=== PATIENT | female | born 1955 | race Caucasian/White ===

== ENCOUNTER 2024-06-17 23:28 | Observation (INO) | payer MEDICARE, SELFPAY ==
--- NOTE | 2024-06-17 23:25 | XR_ITS ---
PROCEDURE INFORMATION: Exam: XR Chest Exam date and time: 06/17/2024 11:30 PM Age: 68 years old Clinical indication: Shortness of breath; Additional info: Soa/weak, recent HX intubation TECHNIQUE: Imaging protocol: Radiologic exam of the chest. Views: 1 view. COMPARISON: No relevant prior studies available. FINDINGS: Lungs: Unremarkable. No consolidation. Pleural spaces: Unremarkable. No pleural effusion. No pneumothorax. Heart/Mediastinum: Unremarkable. No cardiomegaly. Bones/joints: Unremarkable. IMPRESSION: No acute radiographic findings identified.
[2024-06-17 23:33] VITALS: BP 173/96; PULSE 105; RESP 20; TEMP 36.7; O2SAT 95; BMI 37.8
[2024-06-17 23:34] VITALS: BP 173/96; PULSE 65; RESP 23; O2SAT 86
--- NOTE | 2024-06-17 23:38 | PC.NURSE ---
Pt awake alert and oriented Skin pale warm and cool Speech clear and appropriate. Attempted to initiate IV x3 with no success Resport given to Traci NIX Pt in ST per continuous heart monitor
--- NOTE | 2024-06-17 23:47 | HMH.EDGENADL ---
Discharge Plan Disposition Chief Complaint: Weakness Clinical Impressions Clinical Impression: Heart failure, Pressure ulcers of skin of multiple topographic sites, Generalized muscle weakness Print Language Print Language: Afghan Discharge ED Provider: Cj Alva General Adult HPI General Chief complaint: Weakness Stated complaint: Sepsis Time Seen by Provider: 06/17/24 23:30 Mode of Arrival: EMS Source of Information: Patient Description of Symptoms (Recalled from ER Triage Doc. by RN): Pt states she was recently released from [facility] and now unable to do ADLs due to weakness at home History of Present Illness HPI narrative: 68-year-old female presents for generalized weakness. The patient was admitted to [facility] about a month ago for a total of 11 days. She had pneumonia and required intubation. At that time she also had a GI bleed, presumably from too much NSAID use. She also had MRSA and was very sick. She was discharged about 2 weeks ago and was prescribed Augmentin and doxycycline Bumex and lisinopril which she has been taking. She completed the antibiotics already. Prior to her admission to [facility], she could barely walk, could only walk a few steps with a walker. She has a history of multiple back surgeries that have resulted in her being weak and without balance. She also with a history of cholecystectomy, tubal ligation. She denies any known lung history, heart history, kidney history, diabetes etc. she is here tonight because she is extremely weak. She lives home alone and is not really able to get out of her wheelchair. She reports that she has a cough but does not feel like she is sick. Related Data Allergies Allergy/AdvReac Type Severity Reaction Status Date / Time No Known Allergies Allergy Verified 06/18/24 00:[address] [facility] Disclaimer: The information contained in this section may have been updated after the patient was seen, as this information can be updated by other users. Social History Smoking Status: Never smoker alcohol intake: never current occupational status: retired Travel in the last 8 weeks: None ROS Obtained: Yes All systems reviewed & no additional complaints except as documented Physical Exam General General appearance: alert, in no apparent distress and obese Head Head exam: atraumatic and normocephalic Eye Eye exam: Present normal appearance, PERRL and EOMI ENT ENT exam: Present normal oropharynx and normal external ear exam Neck Neck exam: Present normal inspection and full ROM Chest Chest inspection: Present normal inspection and symmetric chest wall rise; Absent tenderness Respiratory Respiratory exam: Present normal lung sounds bilaterally; Absent respiratory distress Cardiovascular Cardiovascular exam: Present normal rhythm and tachycardia Abdominal Exam Abdominal exam: Present soft and distention; Absent tenderness or guarding Extremities Exam Extremities exam: Present other (Severe bilateral lower extremity edema with venous stasis dermatitis. There are wound on the bilateral heels and toes with eschar.) Back Exam Back exam: Present other (Patient has infected pressure wounds over the bilateral buttock and posterior thighs.) Neurological Exam Neurological exam: Present alert, oriented X3 and other (Generalized weakness, at baseline per patient) Psychiatric Psychiatric exam: Present normal affect and normal mood Skin Skin exam: Present warm and other (Pressure ulcers and lower extremity wounds as discussed above) Lymphatic Lymphatic Findings: no adenopathy Medical Decision Making Medical Records Medical records reviewed: Yes I reviewed the patient's medical records. Screening: Per USPSTF and CDC recommendations, given the prevalence of disease in our region, it is our hospital?s policy to screen for HIV and viral Hepatitis for all patients aged 18 and over and those with ongoing risk factors. [place] Inquiry Pt receiving controlled substance: No [place] was queried for this patient: No Vital Signs: 06/17/24 23:33 06/17/24 23:34 06/17/24 23:57 Temperature 98.0 F Temperature Source Oral Pulse Rate 65 104 H Pulse Rate [Right Brachial] 105 H Respiratory Rate 20 23 27 H Blood Pressure 173/96 H Blood Pressure [Right Arm] 173/96 H Blood Pressure Mean Blood Pressure Mean [Right Arm] 121 Blood Pressure Source [Right Arm] Automatic Cuff Blood Pressure Position [Right Arm] Sitting 02 Sat by Pulse Oximetry 95 86 L 94 L Oxygen Delivery Method Room Air 06/18/24 00:00 06/18/24 00:15 06/18/24 00:18 Temperature Temperature Source Pulse Rate 103 H 101 H Pulse Rate [Right Brachial] Respiratory Rate 25 H 22 28 H Blood Pressure Blood Pressure [Right Arm] Blood Pressure Mean Blood Pressure Mean [Right Arm] Blood Pressure Source [Right Arm] Blood Pressure Position [Right Arm] 02 Sat by Pulse Oximetry 95 93 L Oxygen Delivery Method 06/18/24 00:18 06/18/24 00:30 06/18/24 00:45 Temperature Temperature Source Pulse Rate 96 H 102 H Pulse Rate [Right Brachial] Respiratory Rate 23 22 Blood Pressure 150/77 H 152/88 H Blood Pressure [Right Arm] Blood Pressure Mean 101 Blood Pressure Mean [Right Arm] Blood Pressure Source [Right Arm] Blood Pressure Position [Right Arm] 02 Sat by Pulse Oximetry 92 L 94 L Oxygen Delivery Method Lab Data Lab results reviewed: Yes I reviewed the patient's lab results. Lab Results 06/17/24 23:26: VBG pH 7.46 H, VBG pCO2 31.1 L, VBG pO2 99.9 H, VBG HCO3 21.7 L, VBG Total CO2 22.7 L, VBG O2 Saturation 97.9 H, VBG Base Excess -2.1, VBG Lactic Acid 3.1 H 06/18/24 00:19: Urine Color Yellow, Urine Appearance Clear, Urine pH 5.5, Ur Specific [place] >= 1.030, Urine Protein 100, Urine Glucose (UA) Negative, Urine Ketones Negative, Urine Blood Negative, Urine Nitrate Negative, Urine Bilirubin Negative, Urine Urobilinogen 0.2, Ur Leukocyte Esterase Negative, Urine RBC 3-5, Urine WBC 3-5, Ur Squamous Epith Cells 5-10, Urine Bacteria 1+, Urine Opiates Screen Negative, Urine Methadone Screen Negative, Ur Barbituates Screen Negative, Ur Phencyclidine Scrn Negative, Ur Amphetamines Screen Negative, U Benzodiazepines Scrn Negative, Urine Cocaine Screen Negative, U Marijuana (THC) Screen Negative 06/18/24 00:29: WBC 10.2, RBC 4.02 L, Hgb 10.8 L, Hct 34.9 L, MCV 86.8, MCH 26.9 L, MCHC 30.9 L, RDW 22.1 H, Plt Count 274, MPV 9.5, Neut % (Auto) 84.3 H, Lymph % (Auto) 11.8, [place] % (Auto) 2.0, Eos % (Auto) 1.2, Baso % (Auto) 0.3, Neut # (Auto) 8.6 H, Lymph # (Auto) 1.2, [place] # (Auto) 0.2, Eos # (Auto) 0.1, Baso # (Auto) 0.0, PT 11.6, INR 1.04, APTT 38.3 H, Sodium 135 L, Potassium 3.6, Chloride 105, Carbon Dioxide 22, Anion Gap 11.6, BUN 10, Creatinine 0.50 L, Estimated Creat Clear 87, Estimated GFR 123, Est GFR ( Amer) 149, Glucose 133 H, Calcium 8.4, Phosphorus 4.1, Magnesium 1.4 L, Total Bilirubin 0.9, AST 92 H, ALT 31, Alkaline Phosphatase 102, Total Creatine Kinase 70, Troponin I < 0.01, NT-Pro-B Natriuret Pep 01747 H, Total Protein 7.0, Albumin 3.6, Globulin 3.4 H, Albumin/Globulin Ratio 1.1, Lipase 42 06/18/24 00:29 06/18/24 00:29 Orders (Tests/Meds): ED MEDICATIONS Generic Name Dose Route Start Last Admin Trade Name Freq PRN Reason Stop Dose Admin Furosemide 80 mg 06/18/24 01:37 Furosemide 40mg/4ml Vial IV 06/18/24 01:38 ONCE ONE Vancomycin HCl 2,250 mg/ 250 mls @ 125 mls/hr 06/18/24 00:30 06/18/24 00:43 Sodium Chloride IV 06/18/24 02:29 125 mls/hr ONCE ONE Administration Miscellaneous 1 each 06/17/24 23:45 Vancomycin Consult Request NOTAPPLIC 07/17/24 23:44 CONSULT [facility]ESS Discontinued Medications Generic Name Dose Route Start Last Admin Trade Name Freq PRN Reason Stop Dose Admin Piperacillin Sod/Tazobactam 100 mls @ 200 mls/hr 06/17/24 23:59 06/18/24 00:44 Sod 4.5 gm/ Sodium Chloride IV 06/18/24 00:28 200 mls/hr ONCE ONE Administration ORDERS Category Date Time Status CXR --portable [XR chest portable] Stat Exams 06/17/24 23:25 Completed BNP [NT Pro Brain Natriuretic Pep.] Stat Lab 06/17/24 23:25 Results CBC w/Auto Diff [Complete Blood Count Auto Diff] Stat Lab 06/17/24 23:25 Completed CK [Creatine Kinase] Stat Lab 06/17/24 23:25 Results CMP [Comprehensive Metabolic Panel] Stat Lab 06/17/24 23:25 Results D-Dimer Stat Lab 06/17/24 23:25 Received INR [Prothrombin Time INR] Stat Lab 06/17/24 23:25 Completed Lipase Stat Lab 06/17/24 23:25 Results Magnesium Stat Lab 03/19/25 23:25 Results PTT [Activated Partial Thrombo Time] Stat Lab 06/17/24 23:25 Completed Phosphorous Stat Lab 06/17/24 23:25 Results Rapid PCR Covid and Flu A/B Stat Lab 06/18/24 00:44 Received T4 (Thyroxine) Stat Lab 06/17/24 23:25 Results TSH [Thyroid Stimulating Hormone] Stat Lab 06/17/24 23:25 Results Troponin I Q3H Lab 06/17/24 23:25 Results Troponin I Q3H Lab 06/18/24 02:30 Ordered UA [Urinalysis and Microscopic] Stat Lab 06/18/24 00:19 Completed UDS [Drug Screen,Urine] Stat Lab 06/18/24 00:19 Completed Blood Culture Stat Micro 06/18/24 00:29 Received VBG [Venous Blood Gas] Stat RT 06/17/24 23:26 Completed Tissue Perfus/Sepsis Re-Eval Sepsis Re-Evaluation Performed: Yes Date Performed: 06/18/24 Time Performed: 00:03 HEART Score History (anamnesis): Slightly suspicious ECG: Non-specific disturbance Age: >65 years Risk factors: 1-2 risk factors Troponin: </= normal limit HEART Score: 4 Medical Decision Narrative: 68-year-old female with discharged from [facility] 2 weeks ago after admission for sepsis, pneumonia, MRSA, GI bleed requiring intubation. She presents from home with generalized weakness, lower extremity swelling and sores, pressure wounds. She is not able to walk at all where previously she was able to walk a few steps and pivot. History was obtained via interactive discussion with patient, EMS. On arrival, patient is [afebrile, hemodynamically stable, satting appropriately, alert, oriented x4, GCS 15], moving all extremities spontaneously. Full physical exam performed and significant for extensive lower extremity swelling with venous stasis dermatitis as well as wounds on the toes and heels, extensive pressure wounds on the buttock and legs Differential includes but is not limited to sepsis, heart failure, pneumonia, cellulitis, electrolyte derangement, bacteremia, UTI Patient was given empiric vancomycin and Zosyn for coverage of possible sepsis. No fluid was given as patient is clearly volume overloaded. Workup initiated including broad-spectrum laboratory analysis, swabs, urine, chest x-ray. On re-evaluation, patient [remains afebrile, HD stable.] Laboratory workup independently interpreted by me and significant for no significant leukocytosis hemoglobin 11, mild respiratory alkalosis on VBG, mildly elevated lactate, normal renal function. Initial troponin undetectable. BNP 21,000. Imaging independently interpreted by me and significant for chest x-ray with mild pulmonary edema bilaterally. See radiology read for full review of final results. Given patient history, exam and workup, patient's presentation most likely represents heart failure, cellulitis associated with pressure wounds, failure to thrive. Patient was initiated on 80 mg of IV Lasix for diuresis. Interactive discussion was had with the hospitalist on-call for admission. Procedures Risk/Benefits of Procedure(s) Were Explained: Yes Critical Care Critical Care Time Critical Care Time: No
[2024-06-17 23:57] VITALS: PULSE 104; RESP 27; O2SAT 94
[2024-06-18] VITALS (20 sets, daily range): BP systolic 133–171; BP diastolic 74–92; PULSE 84–103; RESP 13–28; TEMP 36.2–37; O2SAT 90–98; BMI 40.0; BMI 39.2
[2024-06-18 00:34] LABS: Microscopic, Urine URINE MICROSCOPIC (MICROSCOPIC)
[2024-06-18 00:41] LABS: Appearance,Urine CLEAR (Clear); Bilirubin,Urine Negative (Negative); Blood, Urine Negative (Negative); Color,Urine YELLOW (Yellow); Glucose,Urine (UA) Negative (Negative); Ketones,Urine Negative (Negative); Leukocyte Esterase,Urine Negative (Negative); Nitrate,Urine Negative (Negative); PH,Urine 5.5 (5.0-8.5); Protein,Urine 100 (Negative); Urobilinogen,Urine 0.2 EU/dl (0.2)
--- NOTE | 2024-06-18 00:42 | ECG_ITS ---
APPROVED REPORT Exam: Resting ECG HR:81 bpm ECG Measurements Heart Rate 81 AXES WY 179 P 31 QRSd 94 QRS -11 QT 428 T 71 QTc 466 Conclusion SINUS RHYTHM POSSIBLE ANTERIOR MYOCARDIAL INFARCTION , PROBABLY OLD [30 ms Q WAVE IN V3/V4, OR R < 0.2 mV IN V4] BORDERLINE ECG Electronically signed by : ODESSA VÁZQUEZ, 06/18/2024 07:07:56
[2024-06-18] MEDS: VANCOMYCIN HCL 2,250 MG in 0.9 % SODIUM CHLORIDE 250 ML 125 MG IV (00:43)
[2024-06-18] MEDS: PIPERACILLIN/TAZO 4.5 GM in 0.9 % SODIUM CHLORIDE 100 ML IV (00:44)
[2024-06-18 00:47] LABS: VBG Base Excess -2.1 mmol/L (-2.4-2.3); VBG HCO3 21.7 mmol/L (23-30); VBG Oxygen Saturation 97.9 % (50-70); VBG PCO2 31.1 mmol/L (35-51); VBG PH 7.46 mmol/L (7.31-7.41); VBG PO2 99.9 mmol/L (28-40); VBG Total CO2 22.7 mmol/L (23-27)
[2024-06-18 00:47] LABS: Basophils % 0.3 % (0.1-2.0); Eosinophils # 0.1 K/mm3 (0.0-0.4); Eosinophils % 1.2 % (0.1-12.0); Hematocrit 34.9 % (37.0-47.0); Hemoglobin 10.8 g/dL (12.2-16.2); Lymphocytes # 1.2 K/mm3 (0.7-4.5); Lymphocytes % 11.8 % (10-50); Mean Corpuscular HGB Conc 30.9 g/dL (31.8-35.4); Mean Corpuscular Hemoglobin 26.9 pg (27.0-31.2); Mean Corpuscular Volume 86.8 fl (81-99); Mean Platelet Volume 9.5 fl (7.4-10.4); Monocytes # 0.2 K/mm3 (0.1-1.0); Neutrophils # 8.6 K/mm3 (1.8-7.8); Neutrophils % 84.3 % (37.0-80.0); Platelet Count 274 K/mm3 (142-424); Red Blood Count 4.02 M/mm3 (4.20-5.40); Red Cell Distribution Width 22.1 % (11.5-17.5); White Blood Count 10.2 K/mm3 (4.8-10.8)
[2024-06-18 00:49] LABS: Lactate Venous 3.1 mmol/L (0.4-2.0)
[2024-06-18 00:50] LABS: Coronavirus 19, PCR Not Detected (NotDetected); Influenza B, PCR Not Detected (NotDetected)
[2024-06-18 00:52] LABS: Amphetamine/Metha Screen,Urine Negative ng/ml (<1000)
[2024-06-18 00:53] LABS: Barbiturates Screen,Urine Negative ng/ml (<200)
--- NOTE | 2024-06-18 00:53 | PC.NURSE ---
lab calls critical lactic of 3. Provider aware
[2024-06-18 00:54] LABS: Cannabinoid Screen,Urine Negative ng/ml (<50); Specific Gravity, Urine >= 1.030 (1.005-1.030)
[2024-06-18 00:55] LABS: Cocaine Screen,Urine Negative ng/ml (<300); Methadone Screen,Urine Negative ng/ml (<300)
[2024-06-18 00:56] LABS: Opiate Screen,Urine Negative ng/ml (<300)
[2024-06-18 00:57] LABS: Bacteria,Urine 1+ /lpf; Phencyclidine Screen,Urine Negative ng/ml (<25)
[2024-06-18 01:02] LABS: Benzodiazepines Screen,Urine Negative ng/ml (<200)
[2024-06-18 01:08] LABS: Albumin Level 3.6 g/dl (3.5-5.0); Chloride 105 mmol/L (98-107); Potassium 3.6 mmoL/L (3.5-5.1); Sodium 135 mmol/L (136-145)
[2024-06-18 01:10] LABS: Activated Partial Thrombo Time 38.3 seconds (22.8-30.6); Blood Urea Nitrogen 10 mg/dl (7-17); Creatinine Clearance Estimated 87 mL/min (50-200); Estimated Glomerular Filt Rate 123 ml/min (>60); GFR (African American) 149 ML/MIN (>60); INR 1.04 (0.9-1.1); Prothrombin Time 11.6 seconds (10.1-12.5)
[2024-06-18 01:11] LABS: Alanine Aminotransferase 31 U/L (12-78); Albumin/Globulin Ratio 1.1 (1.1-1.8); Alkaline Phosphatase 102 U/L (38-126); Anion Gap 11.6 mEq/L (5-15); Aspartate Amino Transferase 92 U/L (14-36); Bilirubin,Total 0.9 mg/dl (0.2-1.3); Carbon Dioxide 22 mmol/L (22.0-30.0); Creatine Kinase 70 U/L (30-135); Globulin 3.4 g/dL (1.3-3.2)
[2024-06-18 01:12] LABS: Calcium 8.4 mg/dl (8.4-10.2); Glucose 133 mg/dl (74-100)
[2024-06-18 01:17] LABS: Lipase 42 U/L (23-300); Magnesium 1.4 mg/dl (1.6-2.3); Phosphorous 4.1 mg/dl (2.5-4.5)
[2024-06-18 01:29] LABS: NT Pro Brain Natriuretic Pep. 21600 pg/mL (0-125); Troponin I < 0.01 ng/ml (0.00-0.034)
[2024-06-18 01:43] LABS: Influenza A, PCR Detected (NotDetected)
[2024-06-18] MEDS: FUROSEMIDE 40MG/4ML VIAL 80 MG IV (01:44)
[2024-06-18 01:51] LABS: T4 (Thyroxine) 7.9 ug/dl (5.53-11.0); Thyroid Stimulating Hormone 3.68 uIU/mL (0.465-4.68)
--- NOTE | 2024-06-18 02:01 | PC.NURSE ---
report given to gómez NIX
[2024-06-18 02:07] LABS: D-Dimer 0.37 ug/mL (0.0-0.5)
--- NOTE | 2024-06-18 02:11 | PC.NURSE ---
Pt. arrived to floor via stretcher from ED at 02:07.
[2024-06-18] MEDS: OSELTAMIVIR 75MG CAPSULE 75 MG PO ×3 (03:23→21:27)
[2024-06-18 04:06] LABS: Troponin I 0.01 ng/ml (0.00-0.034)
--- NOTE | 2024-06-18 04:33 | ECG_ITS ---
APPROVED REPORT Exam: Resting ECG HR:117 bpm ECG Measurements Heart Rate 117 AXES HI 151 P 215 QRSd 81 QRS -1 QT 331 T 62 QTc 400 Conclusion SINUS TACHYCARDIA WITH FREQUENT SUPRAVENTRICULAR PREMATURE COMPLEXES POSSIBLE ANTERIOR MYOCARDIAL INFARCTION , OF INDETERMINATE AGE [30 ms Q WAVE IN V3/V4, OR R < 0.2 mV IN V4] ABNORMAL ECG INTERPRETATION BASED ON A DEFAULT AGE OF 40 YEARS UNCONFIRMED REPORT Electronically signed by : Reggie Regalado MD 06/19/2024 08:52:07
--- NOTE | 2024-06-18 04:37 | XR_ITS ---
PROCEDURE INFORMATION: Exam: XR Chest Exam date and time: 06/18/2024 4:43 AM Age: 68 years old Clinical indication: Shortness of breath TECHNIQUE: Imaging protocol: Radiologic exam of the chest. Views: 1 view. COMPARISON: CR XR CHEST PORTABLE 06/17/2024 11:30 PM FINDINGS: Lungs: Mild pulmonary venous congestion. Minimal infiltrate versus atelectasis of the left lung base. Pleural spaces: Unremarkable. No pleural effusion. No pneumothorax. Heart/Mediastinum: Mild cardiomegaly. Bones/joints: No acute osseous lesions. There is a partially imaged bipedicular surgical fusion of the lumbar spine. IMPRESSION: 1. Mild cardiomegaly and pulmonary venous congestion. 2. Minimal infiltrate versus atelectasis of the left lung base.
[2024-06-18] MEDS: IPRATROPIUM/ALBUTEROL 3 ML NEB IH (04:48)
[2024-06-18 04:49] LABS: VBG Base Excess -4.1 mmol/L (-2.4-2.3); VBG HCO3 21.7 mmol/L (23-30); VBG Oxygen Saturation 72.7 % (50-70); VBG PH 7.34 mmol/L (7.31-7.41); VBG PO2 42.8 mmol/L (28-40); VBG Total CO2 22.9 mmol/L (23-27)
[2024-06-18 04:49] LABS: Reflex Lactic Add Lactic Reflex
[2024-06-18 04:50] LABS: Lactate Venous 5.1 mmol/L (0.4-2.0)
--- NOTE | 2024-06-18 05:27 | P.HP_ITS ---
<Statement entered by Yash Pagan MD - 06/19/24 00:21> Rounded on patient after nurse practitioner. Personally examined and interviewed patient. Agree with exam findings and care plan as documented. Evaluated on morning rounds. Patient found to be positive for flu. BNP severely elevated at 20,000. White count elevated at 13.6, hemoglobin 9.9. Kidney function normal with BUN 10, creatinine 0.6. Cardiology evaluating. Patient weaned to 2 L per morning rounds. Aggressive diuresis. Responding well, -2 L by morning rounds. Podiatry consulted to assist with leg management. Has wounds on lower legs but also feet. Concerning for dry gangrene. Continuing broad-spectrum antibiotics. Necessitating inpatient management. Repeat CBC, CMP, magnesium ordered for the morning. 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 Noted that she was in [place] for a total of 11 days last month she had pneumonia and required intubation at that time. Noted also a GI bleed presumably from too much NSAID use.. She had MRSA at that time Patient is noted for multiple back surgeries with metal rods. She has very poor balance she has difficulty moving maneuvering so basically sits most of the time basically she lives alone there is a great potential that she will need to have case management. [facility] Disclaimer: The information contained in this section may have been updated after the patient was seen, as this information can be updated by other users. Medical History (Updated 06/18/24 @ 06:04 by Leodan Perdue APRN) Hypertension Surgical History (Updated 06/18/24 @ 02:39 by Ayah Huang RN) History of tonsillectomy History of spinal surgery History of cholecystectomy Family History (Updated 06/18/24 @ 02:39 by Ayah Huang RN) Other Family history of arthritis Family history of cancer Family history of diabetes mellitus Family history of heart disease Social History (Updated 06/18/24 @ 02:39 by Ayah Huang RN) Smoking Status: Never smoker alcohol intake: never current occupational status: retired Travel in the last 8 weeks: None Contact w/someone who lives/traveled outside [place] past 30 days?: No Exposure to someone with infectious disease in past 14 days?: No Do you have a fever (greater than 100.4 F or 38 C)?: No Have you tested positive for COVID-19: No Exposed to someone with COVID-19 in past 14 days?: No Do you have a sore throat?: No Do you have a cough?: No Do you have any weakness?: No Are you experiencing any nausea/vomitting?: No Do you have any diarrhea?: No Are you experiencing any unusual bleeding?: No Do you have any muscle aches/pain?: No Do you have any abdominal pain?: No Are you experiencing loss of taste or smell?: No Other Medical History Have you received the Flu Vaccine for this season: Yes Have you received the Pneumonia Vaccine: No Review of Systems Review of Systems Review of systems:: pertinent systems reviewed and negative unless documented below Constitutional Constitutional: Reports body ache(s), Reports poor appetite and Reports weakness Eyes Eyes: Reports as per HPI ENT Ears, Nose, Mouth, and Throat: Reports as per HPI *Cardiovascular Cardiovascular: Reports dyspnea and Reports rapid heart rate *Respiratory Respiratory: Reports as per HPI, Reports chest congestion, Reports cough and Reports dyspnea *Gastrointestinal Gastrointestinal: Reports as per HPI *Genitourinary Genitourinary: Reports as per HPI *Musculoskeletal Musculoskeletal: Reports as per HPI and Reports abnormal gait Integumentary/Breasts Skin/Breast: Reports as per HPI *Neurologic Neurologic: Reports abnormal gait and Reports weakness Comments: Patient too weak to walk Psychiatric Psychiatric: Reports as per HPI Endocrine Endocrine: Reports as per HPI Hematologic/Lymphatic Hematologic/Lymphatic: Reports as per HPI Allergic/Immunologic Allergic/Immunologic: Reports as per HPI Meds Home Medications and Allergies Home Medications ?Medication ?Instructions ?Recorded ?Confirmed ?Type aripiprazole 15 mg tablet 15 mg PO DAILY 06/18/24 06/18/24 History bumetanide 1 mg tablet 1 mg PO DAILY 06/18/24 06/18/24 History duloxetine 60 mg capsule,delayed 60 mg PO BID 06/18/24 06/18/24 History release lisinopril 20 mg tablet 20 mg PO DAILY 06/18/24 06/18/24 History lorazepam 1 mg tablet 1 mg PO BID PRN Anxiety 06/18/24 06/18/24 History pantoprazole 40 mg tablet,delayed 40 mg PO BID 06/18/24 06/18/24 History release ropinirole 3 mg tablet 3 mg PO HS 06/18/24 06/18/24 History New Prescriptions to Start Prescriptions: Allergies Allergy/AdvReac Type Severity Reaction Status Date / Time No Known Allergies Allergy Verified 06/18/24 00:43 Exam Data for Last 24 hours Vital signs and Labs for Last 24 Hours: Temp Pulse Resp BP Pulse Ox O2 Del Method O2 Flow Rate 97.1 F L 84 26 H 171/92 H 96 Nasal Cannula 4 06/18/24 04:00 06/18/24 04:00 06/18/24 04:00 06/18/24 04:00 06/18/24 04:00 06/18/24 04:00 06/18/24 04:00 Laboratory Results - last 24 hr 06/17/24 23:26: VBG pH 7.46 H, VBG pCO2 31.1 L, VBG pO2 99.9 H, VBG HCO3 21.7 L, VBG Total CO2 22.7 L, VBG O2 Saturation 97.9 H, VBG Base Excess -2.1, VBG Lactic Acid 3.1 H 06/18/24 00:19: Urine Color Yellow, Urine Appearance Clear, Urine pH 5.5, Ur Specific [place] >= 1.030, Urine Protein 100, Urine Glucose (UA) Negative, Urine Ketones Negative, Urine Blood Negative, Urine Nitrate Negative, Urine Bilirubin Negative, Urine Urobilinogen 0.2, Ur Leukocyte Esterase Negative, Urine RBC 3-5, Urine WBC 3-5, Ur Squamous Epith Cells 5-10, Urine Bacteria 1+, Urine Opiates Screen Negative, Urine Methadone Screen Negative, Ur Barbituates Screen Negative, Ur Phencyclidine Scrn Negative, Ur Amphetamines Screen Negative, U Benzodiazepines Scrn Negative, Urine Cocaine Screen Negative, U Marijuana (THC) Screen Negative 06/18/24 00:29: WBC 10.2, RBC 4.02 L, Hgb 10.8 L, Hct 34.9 L, MCV 86.8, MCH 26.9 L, MCHC 30.9 L, RDW 22.1 H, Plt Count 274, MPV 9.5, Neut % (Auto) 84.3 H, Lymph % (Auto) 11.8, [place] % (Auto) 2.0, Eos % (Auto) 1.2, Baso % (Auto) 0.3, Neut # (Auto) 8.6 H, Lymph # (Auto) 1.2, [place] # (Auto) 0.2, Eos # (Auto) 0.1, Baso # (Auto) 0.0, PT 11.6, INR 1.04, APTT 38.3 H, D-Dimer 0.37, Sodium 135 L, Potassium 3.6, Chloride 105, Carbon Dioxide 22, Anion Gap 11.6, BUN 10, Creatinine 0.50 L, Estimated Creat Clear 87, Estimated GFR 123, Est GFR ( Amer) 149, Glucose 133 H, Calcium 8.4, Phosphorus 4.1, Magnesium 1.4 L, Total Bilirubin 0.9, AST 92 H, ALT 31, Alkaline Phosphatase 102, Total Creatine Kinase 70, Troponin I < 0.01, NT-Pro-B Natriuret Pep 99322 H, Total Protein 7.0, Albumin 3.6, Globulin 3.4 H, Albumin/Globulin Ratio 1.1, Lipase 42, TSH 3.68, Thyroxine (T4) 7.9 06/18/24 00:44: SARS-CoV-2 (PCR) Not detected, Influenza A Untype (PCR) Detected A, Influenza Type B (PCR) Not detected 06/18/24 03:15: Troponin I 0.01 06/18/24 04:45: VBG pH 7.34, VBG pCO2 41.0, VBG pO2 42.8 H, VBG HCO3 21.7 L, VBG Total CO2 22.9 L, VBG O2 Saturation 72.7 H, VBG Base Excess -4.1 L, VBG Lactic Acid 5.1 H I & O for Last 24 hours: Intake & Output 06/15/24 06/16/24 06/17/24 06/18/24 05:59 05:59 05:59 05:59 Output Total 1899 / 1899 Balance -0 / -0 Weight 234 lb 5.622 oz Radiology Reports for the Last 24 Hours: Chest x-ray no acute radiology finding Constitutional Constitutional: mild distress, morbidly obese, chronically ill appearing and cooperative *Routine HEENT Exam Head: Present normocephalic, atraumatic and cushingoid faces Eye: Present EOMI, PERRL and normal accommodation ENT: Present mucous membranes moist, nares patent and external ear normal *Routine Neck Exam Neck: Present supple Comments: Very large neck but no tenderness on palpation Routine Chest/Breast/Axilla Exam Comments: No tenderness found to the chest wall or the upper back, patient noted for chronic pain to her back related to previous surgery *Routine Respiratory Exam Respiratory: Present accessory muscle use, rhonchi, diminished air movement, normal respiratory effort, able to speak in complete sentences and symmetric chest movement Comments: The patient's lungs were relatively clear and when I listen to them there was r eally not a lot of rattling little bit of end expiratory wheezing on posterior when listening. Patient did have a dry cough *Routine Cardiovascular Exam Cardiovascular: Present RRR, Normal S1, Normal S2 and tachycardia *Routine Abdominal Exam Abdominal: Present soft Comments: Very large abdomen abdomen no tenderness found while palpating checking the skin of the groin area a lot of redness but no breakdown no signs of yeast infection under breast *Routine Rectal Exam Rectal:: deferred *Routine Genitalia Exam Genitalia:: deferred *Routine Extremities Exam Extremities: Present edema Comments: Both legs especially from the knees down are red edematous looks to have extremely poor peripheral vascular ability. Some skin breakdown a little bit of weeping some on the back of the thighs and buttocks. Routine Back/Spine/Pelvis Exam Comments: Patient has had multiple back surgeries. The scarring is present she does have rods in place but there is no new pain compared to her normal pain at home *Routine Skin Exam Skin: Present lesions, scars, wounds, rash and ecchymosis Comments: Lower extremities have multiple areas of very thin skin a little bit of weeping some lesions., Also the back of the heels up the back of the thighs and some on the buttocks. *Routine Neurological Exam Neurological: Present alert, oriented X3, CN II-XII intact, vision grossly intact and hearing grossly intact Comments: Patient is extremely weak but she is able to move her feet on request. She also can move the upper extremities well there is really no sign of any acute neurological deficit more related to her physical conditioning and chronic illness Routine Psychiatric Exam Psychiatric: Present normal affect and cooperative Comments: Patient is pleasant gives a fairly good history, Additional Findings:: Please see event note patient was doing well on the floor approximately 4 hours after being on the floor had a respiratory event of hypoxia and tachycardia H&P: Result Impressions CHF with significant peripheral or vascular disease Failure to thrive. COPD. Morbid obesity Imaging and Cardiology Chest x-ray: Status: image reviewed by me Additional comments: Chest x-ray in the ER no acute findings. Assessment and Plan *Assessment and plan (1) Flu: Status: Acute Category: Medical Code(s): J11.1 - Influenza due to unidentified influenza virus with other respiratory manifestations (2) Heart failure: Status: Acute Qualifiers: Heart failure chronicity: acute on chronic Heart failure type: unspecified Qualified Code(s): I50.9 - Heart failure, unspecified Category: Medical Code(s): I50.9 - Heart failure, unspecified (3) Pressure ulcers of skin of multiple topographic sites: Status: Acute Category: Medical Code(s): L89.90 - Pressure ulcer of unspecified site, unspecified stage (4) Chronic obstructive pulmonary disease: Status: Acute Qualifiers: COPD type: unspecified COPD Qualified Code(s): J44.9 - Chronic obstructive pulmonary disease, unspecified Category: Medical Code(s): J44.9 - Chronic obstructive pulmonary disease, unspecified (5) Cardiomegaly: Status: Acute Category: Medical Code(s): I51.7 - Cardiomegaly (6) Failure to thrive: Status: Acute Qualifiers: Failure to thrive age range: in adult Qualified Code(s): R62.7 - Adult failure to thrive Category: Medical (7) Generalized muscle weakness: Status: Acute Category: Medical Code(s): M62.81 - Muscle weakness (generalized) (8) Diabetes mellitus: Status: Acute Qualifiers: Diabetes mellitus type: type 2 Diabetes mellitus joint terminal attack controller insulin use: without long-term use Diabetes mellitus complication status: with circulatory complication Diabetes mellitus complication detail: with peripheral angiopathy without gangrene Qualified Code(s): E11.51 - Type 2 diabetes mellitus with diabetic peripheral angiopathy without gangrene Category: Medical Code(s): E11.9 - Type 2 diabetes mellitus without complications (9) Impaired ambulation: Status: Acute Category: Medical Code(s): R26.2 - Difficulty in walking, not elsewhere classified Plan 1. Patient will be admitted to the hospital, to be evaluated by cardiology. And possibly pulmonology., Will need wound care. Will continue with antibiotics pulmonary toileting nebulizers. 2. Diabetes mellitus, we will continue with sliding scale trying to control blood sugars. 3. CHF, use steroids and nebulizer treatments as required. 4. Influenza A, will start Tamiflu 5. Case managed meant to evaluate the patient question whether she can return home or will need inpatient rehabilitation. 6. Inability to ambulate independently requiring wheelchair related to multiple back surgeries.
--- NOTE | 2024-06-18 05:33 | PC.NURSE ---
patient was a new admission this shift, alert and oriented x3, patient has multiple wounds to bilateral legs and buttocks, patient also has excoriation to abdominal folds. upon arrival to the floor patient was on RA with O2 sats 93%, around 4 am patient BP increased, HR increased, patient experienced increased work of breathing, O2 sat decreased to 80s on RA, crackles and wheezing was auscultated to bilateral lungs, COMPUTER SYSTEMS TECHNOLOGY INSTRUCTOR was notified and came to bedside, breathing treatment was ordered and administered by RT, EKG was completed, labs were ordered and drawn, solumedrol was ordered and administered, patient placed on 4L O2, chest XRAY completed, breathing improved, patient moved to ICU.
[2024-06-18 05:38] LABS: Basophils % 0.2 % (0.1-2.0); Eosinophils # 0.2 K/mm3 (0.0-0.4); Eosinophils % 1.7 % (0.1-12.0); Hematocrit 32.5 % (37.0-47.0); Hemoglobin 9.9 g/dL (12.2-16.2); Lymphocytes % 7.5 % (10-50); Mean Corpuscular HGB Conc 30.5 g/dL (31.8-35.4); Mean Corpuscular Hemoglobin 26.4 pg (27.0-31.2); Mean Corpuscular Volume 86.7 fl (81-99); Mean Platelet Volume 9.5 fl (7.4-10.4); Monocytes # 0.3 K/mm3 (0.1-1.0); Monocytes % 2.1 % (1.7-9.3); Neutrophils % 88.1 % (37.0-80.0); Platelet Count 291 K/mm3 (142-424); Red Blood Count 3.75 M/mm3 (4.20-5.40); Red Cell Distribution Width 21.6 % (11.5-17.5); White Blood Count 13.6 K/mm3 (4.8-10.8)
[2024-06-18 05:46] LABS: Albumin Level 3.2 g/dl (3.5-5.0); Chloride 101 mmol/L (98-107); Sodium 135 mmol/L (136-145)
[2024-06-18 05:49] LABS: Alanine Aminotransferase 21 U/L (12-78); Alkaline Phosphatase 89 U/L (38-126); Anion Gap 6.9 mEq/L (5-15); Aspartate Amino Transferase 25 U/L (14-36); Bilirubin,Total 0.6 mg/dl (0.2-1.3); Blood Urea Nitrogen 10 mg/dl (7-17); Carbon Dioxide 30 mmol/L (22.0-30.0); Creatinine Clearance Estimated 93 mL/min (50-200); Estimated Glomerular Filt Rate 100 ml/min (>60); GFR (African American) 121 ML/MIN (>60)
[2024-06-18 05:50] LABS: Calcium 8.3 mg/dl (8.4-10.2); Globulin 3.1 g/dL (1.3-3.2); Glucose 126 mg/dl (74-100); Lactic Acid Follow Up (RFLX 1) 1.7 mmol/L (0.7-2.1); Magnesium 1.3 mg/dl (1.6-2.3); Total Protein,Serum 6.3 g/dl (6.3-8.2)
[2024-06-18 05:58] LABS: NT Pro Brain Natriuretic Pep. 20500 pg/mL (0-125)
--- NOTE | 2024-06-18 06:00 | CA_ITS ---
APPROVED REPORT EXAM: Comprehensive 2D, Doppler, and color-flow Echocardiogram Records Section Supervisor: Rosaura Sullivan CRT Ht: 5 ft 4 in Wt: 234lbs BSA: 2.09 BP: 171/92 mmHg Indications: Congestive Heart Failure, Hypertension/HDD, Flu +, PVD TDE poor windows, off axis, pt on her back M-Mode Dimensions RVDd 2.85 cm (0.9-2.6) LA Diam 4.34 cm (1.9-4.0) LVDd 5.14 cm (3.5-5.7) LVDs 3.98 cm (3.5-5.7) IVSd 1.48 cm (0.6-1.1) PWd 1.19 cm (0.6-1.1) EF (Teich) 45.10% FS 22.60% EDV (Teich) 126.10 mL TAPSE 1.93 (<1.7) ESV (Teich) 69.20 mL LV Diastology E Decel Time 130 (160-240 msec) E/A Ratio 1.30 MED A' 7.30 cm/s LAT A' 7.30 cm/s Aortic Valve AO Peak GR. 16.50 mmHg Mitral Valve MV A Velocity 70.0 (40-130 cm/s) E/A Ratio 1.30 Pulmonary Valve PV Peak Velocity 101.0 (50-150 cm/s) Tricuspid Valve TR P. Velocity 335.00 cm/s RAP Estimate 10.00 mmHg RVSP 55.00 mmHg Left Ventricle The left ventricle is normal size. The left ventricular systolic function is low normal. There is increased LV wall thickness. There is septal flattening present, consistent with right-sided pressure/volume overload. The left ventricular diastolic function is normal. LVEF is 50%. Right Ventricle Right ventricle is moderately to severely dilated. Right ventricle is moderately hypokinetic. Atria The left atrium is mildly dilated. Right atrium is mildly dilated. There is no Doppler evidence of interatrial shunt. Aortic Valve Aortic valve is mildly thickened. There is no aortic valvular stenosis. No aortic regurgitation is present. Mitral Valve The mitral valve is normal in structure. No evidence of mitral valve stenosis. No evidence of mitral valve stenosis. Trace mitral regurgitation. Tricuspid Valve The tricuspid valve leaflets are thin and pliable. Mild tricuspid regurgitation. Elevated RVSP 45 mmHg + RA pressure. Pulmonic Valve The pulmonary valve is normal in structure. Trace pulmonic regurgitation. Great Vessels The aortic root is normal in size. The IVC is not well-visualized. Pericardium There is no pericardial effusion. Other Information Study Quality: Technically Difficult Conclusion Technically difficult study due to poor acoustic windows. Low normal LV systolic function (LVEF 50%). Septal flattening is present, consistent with right-sided pressure/volume overload. Moderate to severe RV dilation with moderate reduction in RV function. Mild biatrial dilation. Mild TR. Elevated RVSP 40 mmHg + RA pressure. Electronically signed by : Arcelia Cruz MD 06/18/2024 12:09:07
[2024-06-18 06:04] LABS: Troponin I < 0.01 ng/ml (0.00-0.034)
[2024-06-18 06:05] LABS: Potassium 2.9 mmoL/L (3.5-5.1)
--- NOTE | 2024-06-18 06:06 | EXP.EVENT.NO ---
problem : Called by nurse on floor to come to the room. Patient had had a drastic change in respiratory rate and status., Tach pi?a tachycardia, hypertensive struggling to breathe. exam. On entering the room found that the patient had a respiratory rate greater than 30 that was obtunded. Was still conscious but really not responsive. Pulse ox was not able to pick up attendant reading. Listen to lungs and they were crackling throughout which was a tremendous change from when I examined her 4 hours early in the emergency room. Patient was ashen and face slightly blue to the lips.. During this period of time patient went from being very stable to critical plan: During the event oxygen was increased to nebulizers were given, IV steroids given, this made some improvement. 2. Chest x-ray was done did not really show as much as I thought it was the way the patient sounded extremely wet expected to see much more edema., Was noted at this time patient had received Lasix in the emergency room and it had 1900 out since coming up. 3. Venous blood gas done showing that being on the extra oxygen was adequate but actually was alkalotic., 4. Venous access and lab draws were difficult to get. Was able to get a venous blood gas but the lady's vessels continued to collapse when trying to draw labs had how car and yard supervisor called down to the emergency room to have the ER provider come up to provide ultrasound so that access could be started either by deep line or to find better peripheral lines as they are needed. 5. Patient has improved immensely will be transferring her to the ICU working under the theory that this is the influenza. She did not know she had it coming on early and it just turned her around in less than 4 hours. Making her lungs extremely wet and rattling.,
--- NOTE | 2024-06-18 06:50 | PC.NURSE ---
Pt arrived to ICU unit from [facility] @06:00
[2024-06-18 07:26] LABS: POC Glucose,Bedside 117 (70-110)
--- NOTE | 2024-06-18 08:08 | P.CONPHA_ITS ---
Pharmacy Consult Date: 06/18/24 Time: 08:08 Referring provider: DR. RAMSEY Reason for Consult:: VANCOMYCIN DOSING Allergies Allergy/AdvReac Type Severity Reaction Status Date / Time No Known Allergies Allergy Verified 06/18/24 00:43 Home Medications ?Medication ?Instructions ?Recorded ?Confirmed ?Type aripiprazole 15 mg tablet 15 mg PO DAILY 06/18/24 06/18/24 History bumetanide 1 mg tablet 1 mg PO DAILY 06/18/24 06/18/24 History duloxetine 60 mg capsule,delayed 60 mg PO BID 06/18/24 06/18/24 History release lisinopril 20 mg tablet 20 mg PO DAILY 06/18/24 06/18/24 History lorazepam 1 mg tablet 1 mg PO BID PRN Anxiety 06/18/24 06/18/24 History pantoprazole 40 mg tablet,delayed 40 mg PO BID 06/18/24 06/18/24 History release ropinirole 3 mg tablet 3 mg PO HS 06/18/24 06/18/24 History New Prescriptions to Start Prescriptions: Height: 1.63 m Weight: 104.145 kg Laboratory Results:: Laboratory Results - last 24 hr 06/17/24 23:26: VBG pH 7.46 H, VBG pCO2 31.1 L, VBG pO2 99.9 H, VBG HCO3 21.7 L, VBG Total CO2 22.7 L, VBG O2 Saturation 97.9 H, VBG Base Excess -2.1, VBG Lactic Acid 3.1 H 06/18/24 00:19: Urine Color Yellow, Urine Appearance Clear, Urine pH 5.5, Ur Specific [place] >= 1.030, Urine Protein 100, Urine Glucose (UA) Negative, Urine Ketones Negative, Urine Blood Negative, Urine Nitrate Negative, Urine Bilirubin Negative, Urine Urobilinogen 0.2, Ur Leukocyte Esterase Negative, Urine RBC 3-5, Urine WBC 3-5, Ur Squamous Epith Cells 5-10, Urine Bacteria 1+, Urine Opiates Screen Negative, Urine Methadone Screen Negative, Ur Barbituates Screen Negative, Ur Phencyclidine Scrn Negative, Ur Amphetamines Screen Negative, U Benzodiazepines Scrn Negative, Urine Cocaine Screen Negative, U Marijuana (THC) Screen Negative 06/18/24 00:29: WBC 10.2, RBC 4.02 L, Hgb 10.8 L, Hct 34.9 L, MCV 86.8, MCH 26.9 L, MCHC 30.9 L, RDW 22.1 H, Plt Count 274, MPV 9.5, Neut % (Auto) 84.3 H, Lymph % (Auto) 11.8, [place] % (Auto) 2.0, Eos % (Auto) 1.2, Baso % (Auto) 0.3, Neut # (Auto) 8.6 H, Lymph # (Auto) 1.2, [place] # (Auto) 0.2, Eos # (Auto) 0.1, Baso # (Auto) 0.0, PT 11.6, INR 1.04, APTT 38.3 H, D-Dimer 0.37, Sodium 135 L, Potassium 3.6, Chloride 105, Carbon Dioxide 22, Anion Gap 11.6, BUN 10, Creatinine 0.50 L, Estimated Creat Clear 87, Estimated GFR 123, Est GFR ( Amer) 149, Glucose 133 H, Calcium 8.4, Phosphorus 4.1, Magnesium 1.4 L, Total Bilirubin 0.9, AST 92 H, ALT 31, Alkaline Phosphatase 102, Total Creatine Kinase 70, Troponin I < 0.01, NT-Pro-B Natriuret Pep 36527 H, Total Protein 7.0, Albumin 3.6, Globulin 3.4 H, Albumin/Globulin Ratio 1.1, Lipase 42, TSH 3.68, Thyroxine (T4) 7.9 06/18/24 00:44: SARS-CoV-2 (PCR) Not detected, Influenza A Untype (PCR) Detected A, Influenza Type B (PCR) Not detected 06/18/24 03:15: Troponin I 0.01 06/18/24 04:45: VBG pH 7.34, VBG pCO2 41.0, VBG pO2 42.8 H, VBG HCO3 21.7 L, VBG Total CO2 22.9 L, VBG O2 Saturation 72.7 H, VBG Base Excess -4.1 L, VBG Lactic Acid 5.1 H 06/18/24 05:25: WBC 13.6 H D, RBC 3.75 L, Hgb 9.9 L, Hct 32.5 L, MCV 86.7, MCH 26.4 L, MCHC 30.5 L, RDW 21.6 H, Plt Count 291, MPV 9.5, Neut % (Auto) 88.1 H, Lymph % (Auto) 7.5 L, [place] % (Auto) 2.1, Eos % (Auto) 1.7, Baso % (Auto) 0.2, Neut # (Auto) 12.0 H, Lymph # (Auto) 1.0, [place] # (Auto) 0.3, Eos # (Auto) 0.2, Baso # (Auto) 0.0, Sodium 135 L, Potassium 2.9 L*, Chloride 101, Carbon Dioxide 30, Anion Gap 6.9, BUN 10, Creatinine 0.60, Estimated Creat Clear 93, Estimated GFR 100, Est GFR ( Amer) 121, Glucose 126 H, Lactate 1.7, Calcium 8.3 L, Magnesium 1.3 L, Total Bilirubin 0.6, AST 25 D, ALT 21 D, Alkaline Phosphatase 89, Troponin I < 0.01, NT-Pro-B Natriuret Pep 29815 H, Total Protein 6.3, Albumin 3.2 L D, Globulin 3.1, Albumin/Globulin Ratio 1.0 L 06/18/24 07:20: POC Glucose 117 H Medical History: Medical History (Updated 06/18/24 @ 06:04 by Leodan Perdue APRN) Hypertension Assessment and Plan Assessment and plan all Dx Assessment and Plan for all problems:: Pharmacokinetic dosing service Objective: Patient: Floor: Age: 68 yo Serum creatinine: 0.60 mg/dL Height: 64.2 Inches Weight (kg): 104.1 Assessment: IBW (kg): 55.16 Dosing wt(kg): 104.1 Estimated Creatinine clearance (ml/min): 80.3 CRCL method: Cockcroft and Gault using ibw(default). Drug selected: Vancomycin Loading dose (mg): Vd (liters): 83.3 (factor used: 0.8 L/kg) Rylan (hr-1): 0.071 Half life (hrs): 9.76 CLvanco=?? 5.914 L/hr Recommended dose: 1500 mg Interval: 12 hrs Infusion time (hrs): 2.0 Predicted peak (mcg/mL): 29.3 Predicted trough (mcg/mL): 14.41 Total body weight is being used for vancomycin dosing. Recommendations: Give Vancomycin 1500 mg q 12 hrs with an expected Cpeak of 29.3 mcg/ml and an expected Ctrough of 14.41 mcg/ml AUC 0-24 /DINAH Data: DINAH 0.5 mcg/mL:?? AUC/DINAH:? 1014.5 DINAH 1.0 mcg/mL:?? AUC/DINAH:? 507.3 --------- DINAH 1.5 mcg/mL:?? AUC/DINAH:? 338.2 DINAH 2.0 mcg/mL:?? AUC/DINAH:? 253.6 Thank you for the consult, will continue to follow. -KWAKU MCKINNEYD
[2024-06-18 09:05] LABS: Troponin I < 0.01 ng/ml (0.00-0.034)
[2024-06-18] MEDS: BUMETANIDE 1MG/4ML VIAL 1 MG IV ×2 (09:06→15:22)
[2024-06-18] MEDS: KCl 10mEq/100ml 100 ML 100 MEQ IV ×4 (09:06→12:46)
[2024-06-18] MEDS: ENOXAPARIN 40MG/0.4ML SYRINGE 40 MG SUBCUT (09:18)
--- NOTE | 2024-06-18 09:30 | US_ITS ---
FINAL REPORT CLINICAL HISTORY: B/L LE wounds, PVD FINDINGS: LOWER EXTREMITY SEGMENTAL PRESSURE MEASUREMENTS Pressure indices are as follows: RIGHT LOWER EXTREMITY: Calf: 1.2 Ankle, posterior tibial artery: 1.3 Ankle, dorsalis pedis: 1.2 Toe: 0.89 Comments: SCOTT is 1.3, normal LEFT LOWER EXTREMITY: Calf: 1.1 Ankle, posterior tibial artery: 1.3 Ankle, dorsalis pedis: 1.2 Toe: 0.95 Comments: SCOTT is 1.3, normal. IMPRESSION: ABIs are within normal limits bilaterally. Reviewed, Interpreted and Dictated by Mary De Luna MD Transcribed by Zainab Martinez Authenticated and [facility]
--- NOTE | 2024-06-18 09:31 | XR_ITS ---
FINAL REPORT CLINICAL HISTORY: b/l DFU COMPARISON: None FINDINGS: Three views of the left foot show no evidence of acute displaced fracture or dislocation of the visualized bony architecture. Osteopenia is noted. There is a moderate hallux valgus deformity. Mild diffuse degenerative changes are noted. There is no evidence of bony destruction. IMPRESSION: Chronic changes without obvious findings of osteomyelitis. Reviewed, Interpreted and Dictated by Mary De Luna MD Transcribed by Tayler Barnett Authenticated and [facility]
--- NOTE | 2024-06-18 09:31 | XR_ITS ---
FINAL REPORT CLINICAL HISTORY: b/l DFU COMPARISON: None FINDINGS: Three views of the right foot show no evidence of acute displaced fracture or dislocation of the visualized bony architecture. Osteopenia is noted. There is a moderate hallux valgus deformity. Mild diffuse degenerative changes are noted. There is no evidence of bony destruction. IMPRESSION: Chronic changes without obvious findings of osteomyelitis. Reviewed, Interpreted and Dictated by Mary De Luna MD Transcribed by Tayler Barnett Authenticated and [facility]
[2024-06-18] MEDS: PIPERACILLIN/TAZO 3.375 GM in 0.9 % SODIUM CHLORIDE 50 ML IV ×3 (10:03→20:00)
--- NOTE | 2024-06-18 10:48 | HMH.PTEV ---
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 Noted that she was in [place] for a total of 11 days last month she had pneumonia and required intubation at that time. Noted also a GI bleed presumably from too much NSAID use.. She had MRSA at that time Patient is noted for multiple back surgeries with metal rods . She has very poor balance she has difficulty moving maneuvering so basically sits most of the time basically she lives alone there is a great potential that she will need to have case management. She reports she lives alone, no SHANA the home, and she is generally independent with transfer from chair to w/c only. She states, I don't get in the bed at all. I go from my chair to the wheelchair and I just stand and pivot. Subjective Subjective Pt is very anxious with all mobility and reports she does not stand for more than a few seconds at a time at baseline. She agrees to moiblity assessment with considerable encouragement required. [facility] How much help from another person do you currently need... Turning from your back to your side A lot while in a flat bed without using bedrails? Moving from lying on back to sitting on A lot the side of a flat bed without using bedrails? Moving to and from a bed to a chair ( A lot including a wheelchair)? Standing up from a chair using your arms A lot ? (e.g., wheelchair, bedside chair) Walking in hospital room? A lot Climbing 3-5 steps with a railing? Total Mobility Score 11 Mobility Level [facility] Mobility Calculator Mobility 4 Move to chair/ commode Rehab PT IP Eval Objective Appearance Patient Behavior Appropriate Patient Orientation Person,Place,Time Difficulty following instructions none Speech Pattern Clear Ambulation Patient Able to Ambulate No Balance Ability to Arise Able, uses arms to help Sitting Balance Leans or slides in chair Standing Balance Unsteady Dynamic Sitting Balance Ability Poor Dynamic Standing Balance Ability Poor Transfers Bed Transfer Ability Minimal x 2 (25% assist) Chair Transfer Ability Moderate x 2 (50% assist) Sit to Stand Bed Transfer Ability Moderate x 2 (50% assist) Sit to Stand Chair Transfer Ability Moderate x 2 (50% assist) Rehab PT IP prob,goals,plan Problems Date of Evaluation: 06/18/24 PT IP Problems Bed Mobility,Transfers Rehab Potential Rehab Potential Good Plan PT Intervention Plan Bed Mobility,Transfers, Therapeutic Exercise PT Plan Frequency Daily Duration LOS Discharge Goals Bed Transfer Ability Minimal x 1 (25% assist) Sit to Stand Chair Transfer Ability Moderate x 1 (50% assist) Discharge Plan PT Discharge Plan Pt is currently most appropriate for rehab placement once medically stable for d/c. Skilled acute inpatient rehab is indicated to improve bed mobility, transfers and strength in order to return pt to [facility]. Eval Complexity Eval Charge Codes 13937 - High Complexity PHYSICIAN CERTIFICATION: I certify the specified therapy services for Ana Ceballos are required, authorized, and reviewed every 30 days.
--- NOTE | 2024-06-18 10:54 | HMH.PTWOUND ---
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 Noted that she was in [place] for a total of 11 days last month she had pneumonia and required intubation at that time. Noted also a GI bleed presumably from too much NSAID use.. She had MRSA at that time Patient is noted for multiple back surgeries with metal rods . She has very poor balance she has difficulty moving maneuvering so basically sits most of the time basically she lives alone there is a great potential that she will need to have case management. She reports she lives alone, no SHANA the home, and she is generally independent with transfer from chair to w/c only. She states, I don't get in the bed at all. I go from my chair to the wheelchair and I just stand and pivot. Pt presents with multiple wounds on B posterior thighs, B lower legs, and B feet upon admission. 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 Stage II - Skin broken, superficial skin loss involving epidermis alone or also dermis. Partial loss of skin layers. Stage III - Pressure area involves epidermis, dermis and subcutaneous tissue, full thickness skin loss. Stage IV - Pressure area involves epidermis, subcutaneous tissue, bone and other supportive tissue. Full thickness skin loss with extensive destruction of underlying tissue and structures. Wound Length (cm) 15.0 Wound Width (cm) 15.0 Wound Depth (cm) 0.1 Wound Bed Appearance [place] Wound Margins Description Indistinct Surrounding Tissue Appearance Bright Red Wound Drainage Description Sanguineous Drainage Amount Small Plan/Recommendation Comment Pt has multiple wounds throughout B LE. Recommend coving posterior thigh B with petroleum based barrier ointment and continue composite dressing to B heels. Wounds too numerous to effectively list them all at this time. Podiatry consult has been made for B feet and awaiting their much appreciated recommendations. Thank you for involving the wound care team in the care of this patient. Eval Complexity Eval Charge Codes 67048 - High Complexity PHYSICIAN CERTIFICATION: I certify the specified therapy services for Ana Ceballos are required, authorized, and reviewed every 30 days.
--- NOTE | 2024-06-18 11:07 | HMH.OTEV ---
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 Noted that she was in [place] for a total of 11 days last month she had pneumonia and required intubation at that time. Noted also a GI bleed presumably from too much NSAID use.. She had MRSA at that time Patient is noted for multiple back surgeries with metal rods . She has very poor balance she has difficulty moving maneuvering so basically sits most of the time basically she lives alone there is a great potential that she will need to have case management. Patient admitted to the hospital, to be evaluated by cardiology. And possibly pulmonology., Will need wound care. Will continue with antibiotics pulmonary toileting nebulizers. 2. Diabetes mellitus, we will continue with sliding scale trying to control blood sugars . 3. CHF, use steroids and nebulizer treatments as required. 4. Influenza A, will start Tamiflu 5. Case managed meant to evaluate the patient question whether she can return home or will need inpatient rehabilitation. 6. Inability to ambulate independently requiring wheelchair related to multiple back surgeries. Patient reported to live alone with 1 story home with 1 SHANA. Sleeps in recliner. Son and [id number] check on patient weekly. Independent with ADLs and fx'l mobility per patient Subjective I'm scared I will fall. Instructed Patient on safety awareness to complete bed mobility from supine->sit @ EOB requiring Min A. Instructed Patient on SPT from EOB->recliner with needing max A x2. Patient has several wounds and skin breakdown on B LE with limiting her mobility in the bed and OOB tasks. Patient stood <15 secs during transition. Patient required TD for all ADLs. Left Patient sitting upright in chair with needs met at end of session. Objective Right Upper Extremity Gross ROM WFL Left Upper Extremity Gross ROM WFL Bed Mobility bed mobility - supine/sit Assist Level Moderate x 2 (50% assist) Transfer Training Sit/Stand Transfer Assist Level Maximum x 2 (75% assist) Rehab OT IP prob,goals,plan Problems Date of Evaluation: 06/18/24 OT IP Problems Bed Mobility Rehab Potential Rehab Potential Good Equipment Needs Assistive Devices None / NA Plan OT intervention Plan Bed Mobility,Transfers,Balance ,Self care,Safety,Therapeutic Exercise OT Plan Frequency Daily Duration LOS Discharge Goals Bed Mobility Ability Assistance x1 Sit to Stand Chair Transfer Ability Maximum x 1 (75% assist) Chair Transfer Ability Maximum x 1 (75% assist) Chair Transfer Technique Sit to/from Ambulatory Lower Body Dressing Ability Maximum Assistance Discharge Plan OT Discharge Plan Recommend placement for patient at this time. Patient is unable to take care of herself at home alone. Patient will required / care at this time. Patient to continue skilled OT IP services while here at [facility]. Eval Complexity Eval Charge Codes 35647 - Low Complexity PHYSICIAN CERTIFICATION: I certify the specified therapy services for Ana Ceballos are required, authorized, and reviewed every 30 days.
--- NOTE | 2024-06-18 11:15 | HMH.PHAINT1 ---
Pharmacy Intervention Comments: MEDICATION RECONCILIATION COMPLETED ON PATIENT USING EXTERNAL FILL HISTORY FROM PHARMACY AND YASMANI REPORT. -DIOGENES KRAUS, KWAKUD
[2024-06-18 11:20] LABS: POC Glucose,Bedside 203 (70-110)
--- NOTE | 2024-06-18 11:56 | SW/DCPLANNER ---
Addendum entered by Chantal Chew 06/19/24 14:21: Precert is still pending at this time. Per [facility]/ [facility] if patient is approved over the weekend they can accept to their facility. Addendum entered by Chantal Chew 06/19/24 08:26: [facility]/ [facility] stated that precert will be started today for SNF level of care. Addendum entered by Zulay Valverde RN 06/18/24 15:09: Patient receives care from [facility]. Leah asks could we keep her updated on discharge plans. Her phone number is [phone] Original Note: I spoke w/ this patient regarding plans once medically stable for discharge. PT/OT evaluated patient and recommended SNF level of care. Patient is agreeable to placement and prefers [facility] at this time. Patient stated that if [facility] is unable to accept she prefers [facility] in [place]. Patient information will be faxed to both facilities today. Per MD patient could possibly be ready for discharge tomorrow pending no setbacks.
--- NOTE | 2024-06-18 12:23 | SW/DCPLANNER ---
Addendum entered by Meenakshi Pritchard 06/22/24 13:22: [facility] able to take patient. [facility] Addendum entered by Meenakshi Pritchard 06/18/24 13:46: Spoke with jason and they have a bed avaible and she is waiting to hear back from us to start the precert. Patient would like [facility]. Will update when i hear back from [facility]. [facility] Original Note: Faxed patients info to [facility] and [facility]. Will update once i hear from the them. [facility]
--- NOTE | 2024-06-18 12:35 | EXP.POD.CONS ---
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 Noted that she was in [place] for a total of 11 days last month she had pneumonia and required intubation at that time. Noted also a GI bleed presumably from too much NSAID use.. She had MRSA at that time Patient is noted for multiple back surgeries with metal rods. She has very poor balance she has difficulty moving maneuvering so basically sits most of the time basically she lives alone there is a great potential that she will need to have case management. 06/18/24: Podiatry Consult Patient sitting up in her chair upon entering the room. Bilateral legs are erythematous and swollen. Feet had b/l heel wounds and irritated skin around each of her toes. Patient has Lymphedema and some peripheral vascular disease with non-healing ulcers. [facility] Disclaimer: The information contained in this section may have been updated after the patient was seen, as this information can be updated by other users. Medical History Hypertension Surgical History History of tonsillectomy History of spinal surgery History of cholecystectomy Family History Other Family history of arthritis Family history of cancer Family history of diabetes mellitus Family history of heart disease Social History Smoking Status: Never smoker alcohol intake: never current occupational status: retired Travel in the last 8 weeks: None Contact w/someone who lives/traveled outside [place] past 30 days?: No Exposure to someone with infectious disease in past 14 days?: No Do you have a fever (greater than 100.4 F or 38 C)?: No Have you tested positive for COVID-19: No Exposed to someone with COVID-19 in past 14 days?: No Do you have a sore throat?: No Do you have a cough?: No Do you have any weakness?: No Are you experiencing any nausea/vomitting?: No Do you have any diarrhea?: No Are you experiencing any unusual bleeding?: No Do you have any muscle aches/pain?: No Do you have any abdominal pain?: No Are you experiencing loss of taste or smell?: No Review of Systems Constitutional Constitutional: Reports weakness *Musculoskeletal Musculoskeletal: Reports abnormal gait *Neurologic Neurologic: Reports abnormal gait and Reports weakness Meds Home Medications and Allergies Home Medications ?Medication ?Instructions ?Recorded ?Confirmed ?Type bumetanide 1 mg tablet 1 mg PO DAILY 06/18/24 06/18/24 History lisinopril 20 2 tab PO DAILY 06/18/24 06/18/24 History mg-hydrochlorothiazide 12.5 mg tablet pantoprazole 40 mg tablet,delayed 40 mg PO BID 06/18/24 06/18/24 History release ropinirole 3 mg tablet 3 mg PO TIDP PRN Restless Leg(S) 06/18/24 06/18/24 History New Prescriptions to Start Prescriptions: Allergies Allergy/AdvReac Type Severity Reaction Status Date / Time No Known Allergies Allergy Verified 06/18/24 00:43 Exam (Inpt) Vital signs and Labs for Last 24 Hours: Temp Pulse Resp BP Pulse Ox O2 Del Method O2 Flow Rate 98.0 F 93 H 22 163/82 H 96 Nasal Cannula 2 06/18/24 08:00 06/18/24 11:01 06/18/24 11:01 06/18/24 11:01 06/18/24 11:01 06/18/24 11:01 06/18/24 11:01 Laboratory Results - last 24 hr 06/17/24 23:26: VBG pH 7.46 H, VBG pCO2 31.1 L, VBG pO2 99.9 H, VBG HCO3 21.7 L, VBG Total CO2 22.7 L, VBG O2 Saturation 97.9 H, VBG Base Excess -2.1, VBG Lactic Acid 3.1 H 06/18/24 00:19: Urine Color Yellow, Urine Appearance Clear, Urine pH 5.5, Ur Specific [place] >= 1.030, Urine Protein 100, Urine Glucose (UA) Negative, Urine Ketones Negative, Urine Blood Negative, Urine Nitrate Negative, Urine Bilirubin Negative, Urine Urobilinogen 0.2, Ur Leukocyte Esterase Negative, Urine RBC 3-5, Urine WBC 3-5, Ur Squamous Epith Cells 5-10, Urine Bacteria 1+, Urine Opiates Screen Negative, Urine Methadone Screen Negative, Ur Barbituates Screen Negative, Ur Phencyclidine Scrn Negative, Ur Amphetamines Screen Negative, U Benzodiazepines Scrn Negative, Urine Cocaine Screen Negative, U Marijuana (THC) Screen Negative 06/18/24 00:29: WBC 10.2, RBC 4.02 L, Hgb 10.8 L, Hct 34.9 L, MCV 86.8, MCH 26.9 L, MCHC 30.9 L, RDW 22.1 H, Plt Count 274, MPV 9.5, Neut % (Auto) 84.3 H, Lymph % (Auto) 11.8, [place] % (Auto) 2.0, Eos % (Auto) 1.2, Baso % (Auto) 0.3, Neut # (Auto) 8.6 H, Lymph # (Auto) 1.2, [place] # (Auto) 0.2, Eos # (Auto) 0.1, Baso # (Auto) 0.0, PT 11.6, INR 1.04, APTT 38.3 H, D-Dimer 0.37, Sodium 135 L, Potassium 3.6, Chloride 105, Carbon Dioxide 22, Anion Gap 11.6, BUN 10, Creatinine 0.50 L, Estimated Creat Clear 87, Estimated GFR 123, Est GFR ( Amer) 149, Glucose 133 H, Calcium 8.4, Phosphorus 4.1, Magnesium 1.4 L, Total Bilirubin 0.9, AST 92 H, ALT 31, Alkaline Phosphatase 102, Total Creatine Kinase 70, Troponin I < 0.01, NT-Pro-B Natriuret Pep 16548 H, Total Protein 7.0, Albumin 3.6, Globulin 3.4 H, Albumin/Globulin Ratio 1.1, Lipase 42, TSH 3.68, Thyroxine (T4) 7.9 06/18/24 00:44: SARS-CoV-2 (PCR) Not detected, Influenza A Untype (PCR) Detected A, Influenza Type B (PCR) Not detected 06/18/24 03:15: Troponin I 0.01 06/18/24 04:45: VBG pH 7.34, VBG pCO2 41.0, VBG pO2 42.8 H, VBG HCO3 21.7 L, VBG Total CO2 22.9 L, VBG O2 Saturation 72.7 H, VBG Base Excess -4.1 L, VBG Lactic Acid 5.1 H 06/18/24 05:25: WBC 13.6 H D, RBC 3.75 L, Hgb 9.9 L, Hct 32.5 L, MCV 86.7, MCH 26.4 L, MCHC 30.5 L, RDW 21.6 H, Plt Count 291, MPV 9.5, Neut % (Auto) 88.1 H, Lymph % (Auto) 7.5 L, [place]aine % (Auto) 2.1, Eos % (Auto) 1.7, Baso % (Auto) 0.2, Neut # (Auto) 12.0 H, Lymph # (Auto) 1.0, [place] # (Auto) 0.3, Eos # (Auto) 0.2, Baso # (Auto) 0.0, Sodium 135 L, Potassium 2.9 L*, Chloride 101, Carbon Dioxide 30, Anion Gap 6.9, BUN 10, Creatinine 0.60, Estimated Creat Clear 93, Estimated GFR 100, Est GFR ( Amer) 121, Glucose 126 H, Lactate 1.7, Calcium 8.3 L, Magnesium 1.3 L, Total Bilirubin 0.6, AST 25 D, ALT 21 D, Alkaline Phosphatase 89, Troponin I < 0.01, NT-Pro-B Natriuret Pep 95449 H, Total Protein 6.3, Albumin 3.2 L D, Globulin 3.1, Albumin/Globulin Ratio 1.0 L 06/18/24 07:20: POC Glucose 117 H 06/18/24 08:35: Troponin I < 0.01 06/18/24 11:07: POC Glucose 203 H I & O for Labs for Last 24 Hours: Intake & Output 06/15/24 06/16/24 06/17/24 06/18/24 23:59 23:59 23:59 23:59 Intake Total 210 / 210 Output Total 3250 / 3250 Balance -3040 / -3040 Weight 220 lb 229 lb 9.6 oz Constitutional: Present no acute distress and cooperative Head: Present normocephalic Neck: Present normal inspection Respiratory: Present normal respiratory effort Cardiac: Present pedal pulses present Comments:: deferred Rectal (female): Present deferred (female): Present deferred Extremities: Present edema Comment:: -B/L lower legs cellulitis, some weeping to right lower anterior leg. Right medial heel wound cultured base of wound, no drainage noted, dark eschar debrided with a 15' blade sharply, excisionally through skin into the subcu layer. Fibrotic tissue was removed.90% Dark eschar scab with 10% Granular base was noted. Post debridement the wound measured 1.5 x 2.0 x 0.1 cm. -site painted with betadine and pink Allevyn foam dressing re-applied -Left medial /posterior heel ulcer- not debrided, thick dark eschar scab in place measures ~ 4 x 4 x 0 cm. Peeling skin surrounding the borders. -Left toes are red with dry scabs and irritated skin at base of toes, left open to air. -Left lateral foot had 2 small ulcers to the lateral foot,and one small ulcer/scab with dark eschar scabs, no drainage noted, no debridement. Skin: Present erythema, dry and wounds Neuro: Present oriented x 3 Ankle: bilateral: erythema (b/l lower legs red and swollen ), bilateral: swelling and bilateral: tenderness Feet/Toes: bilateral: erythema, bilateral: nail abnormalities, bilateral: tenderness (b/l foot ulcers ) and bilateral: decreased ROM Inspection: Present nail disorder and ulceration Pulses: L dorsalis pedis pulse: diminished (weakly palpable ), R dorsalis pedis pulse: diminished, L posterior tibial pulse: diminished and R posterior tibial pulse: diminished CFT: dim: CFT Results Labs 06/18/24 05:25 06/18/24 05:25 Labs: Abnormal lab results 06/17/24 06/18/24 06/18/24 Range/Units 23:26 00:29 00:44 WBC (4.8-10.8) K/mm3 RBC 4.02 L (4.20-5.40) M/mm3 Hgb 10.8 L (12.2-16.2) g/dL Hct 34.9 L (37.0-47.0) % MCH 26.9 L (27.0-31.2) pg MCHC 30.9 L (31.8-35.4) g/dL RDW 22.1 H (11.5-17.5) % Neut % (Auto) 84.3 H (37.0-80.0) % Lymph % (Auto) (10-50) % Neut # (Auto) 8.6 H (1.8-7.8) K/mm3 APTT 38.3 H (22.8-30.6) seconds VBG pH 7.46 H (7.31-7.41) mmol/L VBG pCO2 31.1 L (35-51) mmol/L VBG pO2 99.9 H (28-40) mmol/L VBG HCO3 21.7 L (23-30) mmol/L VBG Total CO2 22.7 L (23-27) mmol/L VBG O2 Saturation 97.9 H (50-70) % VBG Base Excess (-2.4-2.3) mmol/L VBG Lactic Acid 3.1 H (0.4-2.0) mmol/L Sodium 135 L (136-145) mmol/L Potassium (3.5-5.1) mmoL/L Creatinine 0.50 L (0.52-1.04) mg/dl Glucose 133 H (74-100) mg/dl POC Glucose (70-110) Calcium (8.4-10.2) mg/dl Magnesium 1.4 L (1.6-2.3) mg/dl AST 92 H (14-36) U/L NT-Pro-B Natriuret Pep 58082 H (0-125) pg/mL Albumin (3.5-5.0) g/dl Globulin 3.4 H (1.3-3.2) g/dL Albumin/Globulin Ratio (1.1-1.8) Influenza A Untype (PCR) Detected A (NotDetected) 06/18/24 06/18/24 06/18/24 Range/Units 04:45 05:25 07:20 WBC 13.6 H D (4.8-10.8) K/mm3 RBC 3.75 L (4.20-5.40) M/mm3 Hgb 9.9 L (12.2-16.2) g/dL Hct 32.5 L (37.0-47.0) % MCH 26.4 L (27.0-31.2) pg MCHC 30.5 L (31.8-35.4) g/dL RDW 21.6 H (11.5-17.5) % Neut % (Auto) 88.1 H (37.0-80.0) % Lymph % (Auto) 7.5 L (10-50) % Neut # (Auto) 12.0 H (1.8-7.8) K/mm3 APTT (22.8-30.6) seconds VBG pH (7.31-7.41) mmol/L VBG pCO2 (35-51) mmol/L VBG pO2 42.8 H (28-40) mmol/L VBG HCO3 21.7 L (23-30) mmol/L VBG Total CO2 22.9 L (23-27) mmol/L VBG O2 Saturation 72.7 H (50-70) % VBG Base Excess -4.1 L (-2.4-2.3) mmol/L VBG Lactic Acid 5.1 H (0.4-2.0) mmol/L Sodium 135 L (136-145) mmol/L Potassium 2.9 L* (3.5-5.1) mmoL/L Creatinine (0.52-1.04) mg/dl Glucose 126 H (74-100) mg/dl POC Glucose 117 H (70-110) Calcium 8.3 L (8.4-10.2) mg/dl Magnesium 1.3 L (1.6-2.3) mg/dl AST (14-36) U/L NT-Pro-B Natriuret Pep 27145 H (0-125) pg/mL Albumin 3.2 L D (3.5-5.0) g/dl Globulin (1.3-3.2) g/dL Albumin/Globulin Ratio 1.0 L (1.1-1.8) Influenza A Untype (PCR) (NotDetected) 06/18/24 Range/Units 11:07 WBC (4.8-10.8) K/mm3 RBC (4.20-5.40) M/mm3 Hgb (12.2-16.2) g/dL Hct (37.0-47.0) % MCH (27.0-31.2) pg MCHC (31.8-35.4) g/dL RDW (11.5-17.5) % Neut % (Auto) (37.0-80.0) % Lymph % (Auto) (10-50) % Neut # (Auto) (1.8-7.8) K/mm3 APTT (22.8-30.6) seconds VBG pH (7.31-7.41) mmol/L VBG pCO2 (35-51) mmol/L VBG pO2 (28-40) mmol/L VBG HCO3 (23-30) mmol/L VBG Total CO2 (23-27) mmol/L VBG O2 Saturation (50-70) % VBG Base Excess (-2.4-2.3) mmol/L VBG Lactic Acid (0.4-2.0) mmol/L Sodium (136-145) mmol/L Potassium (3.5-5.1) mmoL/L Creatinine (0.52-1.04) mg/dl Glucose (74-100) mg/dl POC Glucose 203 H (70-110) Calcium (8.4-10.2) mg/dl Magnesium (1.6-2.3) mg/dl AST (14-36) U/L NT-Pro-B Natriuret Pep (0-125) pg/mL Albumin (3.5-5.0) g/dl Globulin (1.3-3.2) g/dL Albumin/Globulin Ratio (1.1-1.8) Influenza A Untype (PCR) (NotDetected) H & H 06/18/24 06/18/24 Range/Units 00:29 05:25 Hgb 10.8 L 9.9 L (12.2-16.2) g/dL Hct 34.9 L 32.5 L (37.0-47.0) % Coagulation 06/18/24 Range/Units 00:29 INR 1.04 (0.9-1.1) All other labs normal. Assessment and Plan *Assessment and plan (1) Flu: Status: Acute Category: Medical Code(s): J11.1 - Influenza due to unidentified influenza virus with other respiratory manifestations (2) Heart failure: Status: Acute Qualifiers: Heart failure chronicity: acute on chronic Heart failure type: unspecified Qualified Code(s): I50.9 - Heart failure, unspecified Category: Medical Code(s): I50.9 - Heart failure, unspecified (3) Pressure ulcers of skin of multiple topographic sites: Status: Acute Category: Medical Code(s): L89.90 - Pressure ulcer of unspecified site, unspecified stage (4) Chronic obstructive pulmonary disease: Status: Acute Qualifiers: COPD type: unspecified COPD Qualified Code(s): J44.9 - Chronic obstructive pulmonary disease, unspecified Category: Medical Code(s): J44.9 - Chronic obstructive pulmonary disease, unspecified (5) Cardiomegaly: Status: Acute Category: Medical Code(s): I51.7 - Cardiomegaly (6) Failure to thrive: Status: Acute Qualifiers: Failure to thrive age range: in adult Qualified Code(s): R62.7 - Adult failure to thrive Category: Medical (7) Generalized muscle weakness: Status: Acute Category: Medical Code(s): M62.81 - Muscle weakness (generalized) (8) Diabetes mellitus: Status: Acute Qualifiers: Diabetes mellitus complication detail: with peripheral angiopathy without gangrene Diabetes mellitus complication status: with circulatory complication Diabetes mellitus long term acute care registered nurse insulin use: without long term acute care registered nurse use Diabetes mellitus type: type 2 Qualified Code(s): E11.51 - Type 2 diabetes mellitus with diabetic peripheral angiopathy without gangrene Category: Medical Code(s): E11.9 - Type 2 diabetes mellitus without complications (9) Impaired ambulation: Status: Acute Category: Medical Code(s): R26.2 - Difficulty in walking, not elsewhere classified (10) Skin ulcer of right heel: Status: Acute Qualifiers: Non-pressure ulcer stage: unspecified non-pressure ulcer stage Qualified Code(s): L97.419 - Non-pressure chronic ulcer of right heel and midfoot with unspecified severity Category: Medical Code(s): L97.419 - Non-pressure chronic ulcer of right heel and midfoot with unspecified severity (11) Pressure ulcer of left heel: Status: Acute Qualifiers: Pressure injury stage: unstageable Qualified Code(s): L89.620 - Pressure ulcer of left heel, unstageable Category: Medical Code(s): L89.629 - Pressure ulcer of left heel, unspecified stage (12) Lymphedema of both lower extremities: Status: Acute Category: Medical Code(s): I89.0 - Lymphedema, not elsewhere classified (13) Osteopenia determined by x-ray: Status: Acute Category: Medical Code(s): M85.80 - Other specified disorders of bone density and structure, unspecified site (14) Acquired hallux valgus of both feet: Status: Acute Category: Medical Code(s): M20.11 - Hallux valgus (acquired), right foot; M20.12 - Hallux valgus (acquired), left foot Plan 06/18/24: -B/L heel ulcers, ulcers to Left lateral foot -wound culture obtained from right medial heel ulcer -Right heel was cleaned and debridement done, see above for details -Left heel ulcer not debrided. Painted with Betadine and then reapplied the pink foam dressing -Will order Santyl ointment to start on wounds with a DSD and change daily. -Nursing to start dressing changes in the morning as mentioned above. -Plan to obtain bilateral CT angiogram -Reviewed patient's SCOTT testing, impression states ABIs are within normal limits bilaterally -No plans for surgery from podiatry at this time -All orders and recommendations per Dr. Khanna
--- NOTE | 2024-06-18 12:40 | CT_ITS ---
FINAL REPORT TECHNIQUE: Postcontrast images of the pelvis and extremities were performed by computed tomography. Extensive 3-D reconstruction images were performed. A CTA was performed. This study was performed with techniques to keep radiation doses as low as reasonably achievable (ALARA). Individualized dose reduction techniques using automated exposure control or adjustment of mA and/or kV according to the patient's size were employed. CLINICAL HISTORY: b/l DFU, non-healing ulcer COMPARISON: None FINDINGS: Lower abdomen and pelvis: The visualized portions of the solid organs are unremarkable in appearance. The gallbladder has been surgically resected. No abnormality of the bowel is identified. There is a moderate umbilical hernia present containing fat. Note is made of body wall and lower extremity subcutaneous edema, nonspecific. CTA: The lower abdominal aorta is normal in caliber. There is minimal plaque disease in the abdominal aorta. Right lower extremity: The iliac vessels are unremarkable. The femoral vessels are unremarkable. There is moderate plaque present in the distal superficial femoral artery, with mild stenosis. The popliteal artery is unremarkable. The trifurcation is unremarkable. The anterior tibial, posterior tibial, and peroneal vessels cross the ankle properly. LEFT lower extremity: The iliac vessels are unremarkable. The femoral vessels are unremarkable. There is a focal stenosis of the distal superficial femoral artery of approximately 50%. The remaining SFA and popliteal arteries are unremarkable. The trifurcation is unremarkable. The anterior tibial, posterior tibial, and peroneal vessels cross the ankle properly. IMPRESSION: No significant inflow disease from the aortoiliac circulation is identified. Focal moderate stenosis of the distal left SFA otherwise unremarkable left lower extremity. No significant obstructive peripheral vascular disease right lower extremity. Reviewed, Interpreted and Dictated by Mary De Luna MD Transcribed by Eliana Joseph Authenticated and [facility]
--- NOTE | 2024-06-18 14:22 | CT_ITS ---
FINAL REPORT TECHNIQUE: Thin section axial CT with contrast with multiplanar reconstruction This study was performed with techniques to keep radiation doses as low as reasonably achievable, (ALARA). Individualized dose reduction techniques using automated exposure control or adjustment of mA and/or kV according to the patient's size were employed. CLINICAL HISTORY: right heart failure, hypoxia COMPARISON: None FINDINGS: CTA CHEST: Pulmonary vessels enhance in normal fashion without evidence of embolism. Thoracic aorta shows no dissection or aneurysm. There are ill-defined small nodular opacities, more prominent in the lower lobes than the upper lobes, suggestive of bronchiolitis and bronchopneumonia. No cavitation is identified. There is no significant pleural effusion. There is no significant pericardial effusion. No mediastinal or hilar adenopathy is present. IMPRESSION: 1. No evidence of pulmonary embolism 2. Small nodular opacities, greater in the lower lobes, likely infectious. The overall appearance is suggestive of bronchiolitis and bronchopneumonia. Reviewed, Interpreted and Dictated by Mary De Luna MD Transcribed by Eliana Joseph Authenticated and [facility]
--- NOTE | 2024-06-18 14:25 | CA_ITS ---
FINAL REPORT CLINICAL HISTORY: EDEMA,SOA,OBESITY FINDINGS: Multiple transverse and longitudinal scans were performed of the femoral popliteal deep venous system, with augmentation and compression maneuvers. Normal phasic flow was noted in the visualized deep venous system. No intraluminal increased echogenicity is noted to suggest thrombus. There is normal compression and augmentation of the venous structures. No abnormal venous collaterals are seen. IMPRESSION: No evidence of deep venous thrombosis of the bilateral lower extremities. Reviewed, Interpreted and Dictated by Mary De Luna MD Transcribed by Zainab Martinez Authenticated and [facility][1]
[2024-06-18] MEDS: VANCOMYCIN/WATER FOR INJ (PEG) 1.5 GM/300 ML PIGGYBACK IV (14:30)
[2024-06-18] MEDS: SODIUM CHLORIDE 0.9% 10ML SYR (RAD ONLY) 10 ML IV (14:49)
[2024-06-18] MEDS: IOPAMIDOL-370 (76%);100ML BOTTLE 120 ML IV (14:49)
[2024-06-18] MEDS: 0.9 % SODIUM CHLORIDE 50 ML VIAL IV ×2 (14:50→14:51)
[2024-06-18] MEDS: IOPAMIDOL-370 (76%);100ML BOTTLE 60 ML IV (14:51)
--- NOTE | 2024-06-18 15:24 | EXP.CARD.CON ---
History of Present Illness History of Present Illness Consult date: 06/18/24 Requesting physician: Yash Pagan Consult reason: congestive heart failure Chief complaint: weakness History of present illness: 68-year-old white female without known cardiovascular disease presented to the emergency room with complaints of weakness. She was diagnosed with CHF and influenza and admitted to [facility] but had acute hypoxic episode with O2 dropped to 60s so she was transferred to the ICU. We are consulted to help with medical management. On my evaluation patient is alert and oriented in no distress in the ICU with acceptable vital signs on 2 L nasal cannula. She states she has never had cardiac issues before. Her primary medical issues stem from the fact that she has severe chronic spinal stenosis with bones spurs resulting in spinal cord injury dating back as far as 2009. This has left her severely weak in lower extremities and she is wheelchair-bound for the most part. She does live independently and is able to get up and pivot to other chairs or ambulate about 5 feet with a walker. This has been her baseline for many years and has chronic lower extremity edema as a result. About 1 month ago she was admitted to [facility] in [place] for 11 days with MRSA sepsis and pneumonia and required intubation. This is per her report I do not have the discharge notes for full review. She states she went back home after that admission and felt much improved for approximately 2 weeks. She then slowly started developing more weakness where she was unable to get out of her chair and had worsening lower extremity edema. Yesterday her symptoms became severe enough she became to the emergency room which is when she was diagnosed with influenza A. Her workup also revealed WBC 13,000, creatinine 0.5, magnesium 1.3, normal troponins x 3, proBNP 21,600, numerous lower extremity sores and pressure wounds to the buttocks and legs. 2D echo obtained which shows right sided pressure and volume overload, moderate to severe RV dilation, RVSP 40 mmHg, mild biatrial dilation. Chest x-ray shows pulmonary venous congestion. She is currently on Lovenox, Bumex, 1mg BID, Tamiflu, and Vancomycin. [facility] Disclaimer: The information contained in this section may have been updated after the patient was seen, as this information can be updated by other users. Medical History Hypertension Surgical History History of tonsillectomy History of spinal surgery History of cholecystectomy Family History Other Family history of arthritis Family history of cancer Family history of diabetes mellitus Family history of heart disease Social History Smoking Status: Never smoker alcohol intake: never current occupational status: retired Travel in the last 8 weeks: None Contact w/someone who lives/traveled outside [place] past 30 days?: No Exposure to someone with infectious disease in past 14 days?: No Do you have a fever (greater than 100.4 F or 38 C)?: No Have you tested positive for COVID-19: No Exposed to someone with COVID-19 in past 14 days?: No Do you have a sore throat?: No Do you have a cough?: No Do you have any weakness?: No Are you experiencing any nausea/vomitting?: No Do you have any diarrhea?: No Are you experiencing any unusual bleeding?: No Do you have any muscle aches/pain?: No Do you have any abdominal pain?: No Are you experiencing loss of taste or smell?: No Review of Systems Constitutional Constitutional: Reports fatigue and Reports weakness Eyes Eyes: Denies loss of vision ENT Ears, Nose, Mouth, and Throat: Reports disequilibrium and Denies hearing loss *Cardiovascular Cardiovascular: Denies chest pain and Reports dyspnea *Respiratory Respiratory: Denies cough and Reports dyspnea *Gastrointestinal Gastrointestinal: Denies change in stool character, Denies nausea and Denies vomiting *Musculoskeletal Musculoskeletal: Reports abnormal gait Integumentary/Breasts Skin/Breast: Reports as per HPI, Reports bleeding lesions, Reports change in pigmentation, Reports changing lesions, Reports lesions, Reports rash, Reports skin ulcer and Reports sores *Neurologic Neurologic: Reports abnormal gait, Reports disequilibrium, Reports localized weakness, Reports lack of coordination, Denies loss of vision and Reports weakness Endocrine Endocrine: Reports fatigue Exam Data for Last 24 hours Vital signs and Labs for Last 24 Hours: Temp Pulse Resp BP Pulse Ox O2 Del Method O2 Flow Rate 98.0 F 89 13 154/82 H 97 Nasal Cannula 2 06/18/24 08:00 06/18/24 14:00 06/18/24 14:00 06/18/24 14:00 06/18/24 14:00 06/18/24 14:00 06/18/24 14:00 Laboratory Results - last 24 hr 06/17/24 23:26: VBG pH 7.46 H, VBG pCO2 31.1 L, VBG pO2 99.9 H, VBG HCO3 21.7 L, VBG Total CO2 22.7 L, VBG O2 Saturation 97.9 H, VBG Base Excess -2.1, VBG Lactic Acid 3.1 H 06/18/24 00:19: Urine Color Yellow, Urine Appearance Clear, Urine pH 5.5, Ur Specific [place] >= 1.030, Urine Protein 100, Urine Glucose (UA) Negative, Urine Ketones Negative, Urine Blood Negative, Urine Nitrate Negative, Urine Bilirubin Negative, Urine Urobilinogen 0.2, Ur Leukocyte Esterase Negative, Urine RBC 3-5, Urine WBC 3-5, Ur Squamous Epith Cells 5-10, Urine Bacteria 1+, Urine Opiates Screen Negative, Urine Methadone Screen Negative, Ur Barbituates Screen Negative, Ur Phencyclidine Scrn Negative, Ur Amphetamines Screen Negative, U Benzodiazepines Scrn Negative, Urine Cocaine Screen Negative, U Marijuana (THC) Screen Negative 06/18/24 00:29: WBC 10.2, RBC 4.02 L, Hgb 10.8 L, Hct 34.9 L, MCV 86.8, MCH 26.9 L, MCHC 30.9 L, RDW 22.1 H, Plt Count 274, MPV 9.5, Neut % (Auto) 84.3 H, Lymph % (Auto) 11.8, [place] % (Auto) 2.0, Eos % (Auto) 1.2, Baso % (Auto) 0.3, Neut # (Auto) 8.6 H, Lymph # (Auto) 1.2, Bee # (Auto) 0.2, Eos # (Auto) 0.1, Baso # (Auto) 0.0, PT 11.6, INR 1.04, APTT 38.3 H, D-Dimer 0.37, Sodium 135 L, Potassium 3.6, Chloride 105, Carbon Dioxide 22, Anion Gap 11.6, BUN 10, Creatinine 0.50 L, Estimated Creat Clear 87, Estimated GFR 123, Est GFR ( Amer) 149, Glucose 133 H, Calcium 8.4, Phosphorus 4.1, Magnesium 1.4 L, Total Bilirubin 0.9, AST 92 H, ALT 31, Alkaline Phosphatase 102, Total Creatine Kinase 70, Troponin I < 0.01, NT-Pro-B Natriuret Pep 84186 H, Total Protein 7.0, Albumin 3.6, Globulin 3.4 H, Albumin/Globulin Ratio 1.1, Lipase 42, TSH 3.68, Thyroxine (T4) 7.9 06/18/24 00:44: SARS-CoV-2 (PCR) Not detected, Influenza A Untype (PCR) Detected A, Influenza Type B (PCR) Not detected 06/18/24 03:15: Troponin I 0.01 06/18/24 04:45: VBG pH 7.34, VBG pCO2 41.0, VBG pO2 42.8 H, VBG HCO3 21.7 L, VBG Total CO2 22.9 L, VBG O2 Saturation 72.7 H, VBG Base Excess -4.1 L, VBG Lactic Acid 5.1 H 06/18/24 05:25: WBC 13.6 H D, RBC 3.75 L, Hgb 9.9 L, Hct 32.5 L, MCV 86.7, MCH 26.4 L, MCHC 30.5 L, RDW 21.6 H, Plt Count 291, MPV 9.5, Neut % (Auto) 88.1 H, Lymph % (Auto) 7.5 L, [place] % (Auto) 2.1, Eos % (Auto) 1.7, Baso % (Auto) 0.2, Neut # (Auto) 12.0 H, Lymph # (Auto) 1.0, Bee # (Auto) 0.3, Eos # (Auto) 0.2, Baso # (Auto) 0.0, Sodium 135 L, Potassium 2.9 L*, Chloride 101, Carbon Dioxide 30, Anion Gap 6.9, BUN 10, Creatinine 0.60, Estimated Creat Clear 93, Estimated GFR 100, Est GFR ( Amer) 121, Glucose 126 H, Lactate 1.7, Calcium 8.3 L, Magnesium 1.3 L, Total Bilirubin 0.6, AST 25 D, ALT 21 D, Alkaline Phosphatase 89, Troponin I < 0.01, NT-Pro-B Natriuret Pep 40032 H, Total Protein 6.3, Albumin 3.2 L D, Globulin 3.1, Albumin/Globulin Ratio 1.0 L 06/18/24 07:20: POC Glucose 117 H 06/18/24 08:35: Troponin I < 0.01 06/18/24 11:07: POC Glucose 203 H I & O for Last 24 hours: Intake & Output 06/15/24 06/16/24 06/17/24 06/18/24 23:59 23:59 23:59 23:59 Intake Total 630 / 630 Output Total 3250 / 3250 Balance -2620 / -2620 Weight 220 lb 229 lb 9.6 oz Constitutional Constitutional: no acute distress and cooperative *Routine HEENT Exam Eye: Present PERRL *Routine Respiratory Exam Respiratory: Absent accessory muscle use, wheezes or crackles Comments: reduced breath sounds throughout, mild wheezing *Routine Cardiovascular Exam Cardiovascular: Present RRR, Normal S1 and Normal S2; Absent murmur, gallop or rubs *Routine Abdominal Exam Abdominal: Present soft; Absent tenderness *Routine Extremities Exam Comments: severe BLE erythema, edema, skin breakdown, weaping, onychomyocis *Routine Skin Exam Skin: Present erythema, lesions, wounds, rash and cracked *Routine Neurological Exam Neurological: Present alert and oriented X3 Routine Psychiatric Exam Psychiatric: Present cooperative Meds Home Medications and Allergies Home Medications ?Medication ?Instructions ?Recorded ?Confirmed ?Type bumetanide 1 mg tablet 1 mg PO DAILY 06/18/24 06/18/24 History lisinopril 20 2 tab PO DAILY 06/18/24 06/18/24 History mg-hydrochlorothiazide 12.5 mg tablet pantoprazole 40 mg tablet,delayed 40 mg PO BID 06/18/24 06/18/24 History release ropinirole 3 mg tablet 3 mg PO TIDP PRN Restless Leg(S) 06/18/24 06/18/24 History New Prescriptions to Start Prescriptions: Allergies Allergy/AdvReac Type Severity Reaction Status Date / Time No Known Allergies Allergy Verified 06/18/24 00:43 Assessment and Plan *Assessment and plan (1) Cor pulmonale, acute: Status: Acute Category: Medical Code(s): I26.09 - Other pulmonary embolism with acute cor pulmonale (2) Acute hypoxic respiratory failure: Status: Acute Category: Medical Code(s): J96.01 - Acute respiratory failure with hypoxia (3) Venous stasis ulcers: Status: Acute Category: Medical Code(s): I83.009 - Varicose veins of unspecified lower extremity with ulcer of unspecified site; L97.909 - Non-pressure chronic ulcer of unspecified part of unspecified lower leg with unspecified severity (4) Influenza A: Status: Acute Category: Medical Code(s): J10.1 - Influenza due to other identified influenza virus with other respiratory manifestations (5) MRSA (methicillin resistant staph aureus) culture positive: Status: Acute Category: Medical Code(s): Z22.322 - Carrier or suspected carrier of Methicillin resistant Staphylococcus aureus Plan Acute Cor Pulmonale - new dx this admission with ProBNP 21k, pulm vascular congestion on CXR, hypoxia, BLE Edema - severe RV dilation/dysfunction with PHtn noted on ECHO - pt denies chronic resp conditions but she just recovered from MRSA PNA and now has Influenza - suspect FARHAD given body habitus - she is also tachycardic and has venous stasis so will check CTA - PE protocol - continue diuresis and Lovenox Acute Hypoxic Respiratory Failure - recent MRSA PNA/intubation in [place] - current influenza - likely underlying FARHAD - need to r/o PE BLE Edema - chronic venous stasis with CEAP 6 skin break down, LE Edema - chronic venous stasis due to spine injury, worse recently with hospitalization and even worse mobility - check BLE Venous duplex for DVT Obesity, BMI 39 - severe and life limiting - consider OP GLP-1 Chronic Debility due to spinal stesnosis and spinal cord injury - wheelchair bound since 2009, can pivot to chair, or walk 5 feet with walker - PT evaluation Recent MRSA Bacteremia - with intubation and 11 day admission at [facility] in [place] - will attempt to obtain records
--- NOTE | 2024-06-18 16:15 | PC.NURSE ---
pt tx from ICU to M/S 2nd floor via bed @[id number]
[2024-06-18] MEDS: POTASSIUM CHLORIDE 20MEQ TAB 40 MEQ PO (16:27)
[2024-06-18 20:41] LABS: POC Glucose,Bedside 126 (70-110)
[2024-06-18] MEDS: PANTOPRAZOLE 40MG TABLET 40 MG PO (21:27)
[2024-06-19] VITALS (8 sets, daily range): BP systolic 142–157; BP diastolic 74–98; PULSE 86–96; RESP 17–20; TEMP 36.4–37.2; O2SAT 92–99; BMI 39.4; BMI 39.3
[2024-06-19] MEDS: VANCOMYCIN/WATER FOR INJ (PEG) 1.5 GM/300 ML PIGGYBACK IV (01:00)
[2024-06-19] MEDS: PIPERACILLIN/TAZO 3.375 GM in 0.9 % SODIUM CHLORIDE 50 ML IV ×4 (02:00→20:29)
--- NOTE | 2024-06-19 04:43 | PC.NURSE ---
Droplet precautions maintained for FLU A+. v/s, ox4, pt tolerated IV ABX well. No acute events to report. Plan of care ongoing.
[2024-06-19 05:28] LABS: Basophils % 0.2 % (0.1-2.0); Eosinophils # 0.2 K/mm3 (0.0-0.4); Eosinophils % 2.3 % (0.1-12.0); Hematocrit 29.4 % (37.0-47.0); Lymphocytes # 1.2 K/mm3 (0.7-4.5); Lymphocytes % 14.2 % (10-50); Mean Corpuscular HGB Conc 30.3 g/dL (31.8-35.4); Mean Corpuscular Hemoglobin 26.2 pg (27.0-31.2); Mean Corpuscular Volume 86.5 fl (81-99); Mean Platelet Volume 9.7 fl (7.4-10.4); Monocytes # 0.3 K/mm3 (0.1-1.0); Monocytes % 3.3 % (1.7-9.3); Neutrophils # 6.8 K/mm3 (1.8-7.8); Neutrophils % 79.3 % (37.0-80.0); Platelet Count 280 K/mm3 (142-424); Red Cell Distribution Width 21.6 % (11.5-17.5); White Blood Count 8.6 K/mm3 (4.8-10.8)
[2024-06-19 05:38] LABS: Hemoglobin 8.9 g/dL (12.2-16.2)
[2024-06-19 05:39] LABS: Alanine Aminotransferase 19 U/L (12-78); Albumin Level 2.9 g/dl (3.5-5.0); Albumin/Globulin Ratio 0.9 (1.1-1.8); Alkaline Phosphatase 58 U/L (38-126); Anion Gap 10.8 mEq/L (5-15); Aspartate Amino Transferase 20 U/L (14-36); Bilirubin,Total 0.3 mg/dl (0.2-1.3); Blood Urea Nitrogen 13 mg/dl (7-17); Calcium 7.9 mg/dl (8.4-10.2); Carbon Dioxide 28 mmol/L (22.0-30.0); Chloride 103 mmol/L (98-107); Creatinine Clearance Estimated 91 mL/min (50-200); Estimated Glomerular Filt Rate 72 ml/min (>60); GFR (African American) 87 ML/MIN (>60); Globulin 3.3 g/dL (1.3-3.2); Glucose 121 mg/dl (74-100); Lactic Acid 1.3 mmol/L (0.7-2.1); Magnesium 1.3 mg/dl (1.6-2.3); Potassium 3.8 mmoL/L (3.5-5.1); Sodium 138 mmol/L (136-145); Total Protein,Serum 6.2 g/dl (6.3-8.2)
[2024-06-19 06:13] LABS: POC Glucose,Bedside 117 (70-110)
[2024-06-19] MEDS: SANTYL TP (09:04)
[2024-06-19] MEDS: BUMETANIDE 1MG/4ML VIAL 1 MG IV ×2 (09:04→15:26)
[2024-06-19] MEDS: ENOXAPARIN 40MG/0.4ML SYRINGE 40 MG SUBCUT (09:05)
[2024-06-19] MEDS: OSELTAMIVIR 75MG CAPSULE 75 MG PO ×2 (09:06→20:29)
[2024-06-19] MEDS: MAGNESIUM SULFATE IN WATER 2 GM/50 ML PIGGYBACK IV (10:23)
--- NOTE | 2024-06-19 12:55 | P.PN_ITS ---
Subjective Subjective Date: 06/19/24 Time: 09:30 Interval history: SOA improving. CTA neg for PE. Venous net for DVT. Exam Data for Last 24 hours Vital signs and Labs for Last 24 Hours: Temp Pulse Resp BP Pulse Ox O2 Del Method O2 Flow Rate 99.0 F 92 H 18 152/98 H 98 Nasal Cannula 2 06/19/24 12:00 06/19/24 12:00 06/19/24 12:00 06/19/24 12:00 06/19/24 12:00 06/19/24 12:00 06/19/24 12:00 Laboratory Results - last 24 hr 06/18/24 20:34: POC Glucose 126 H 06/19/24 05:23: WBC 8.6 D, RBC 3.40 L, Hgb 8.9 L D, Hct 29.4 L, MCV 86.5, MCH 26.2 L, MCHC 30.3 L, RDW 21.6 H, Plt Count 280, MPV 9.7, Neut % (Auto) 79.3, Lymph % (Auto) 14.2, [place] % (Auto) 3.3, Eos % (Auto) 2.3, Baso % (Auto) 0.2, Neut # (Auto) 6.8, Lymph # (Auto) 1.2, [place] # (Auto) 0.3, Eos # (Auto) 0.2, Baso # (Auto) 0.0, Sodium 138, Potassium 3.8 D, Chloride 103, Carbon Dioxide 28, Anion Gap 10.8, BUN 13 D, Creatinine 0.80 D, Estimated Creat Clear 91, Estimated GFR 72, Est GFR ( Amer) 87 D, Glucose 121 H, Lactate 1.3, Calcium 7.9 L, Magnesium 1.3 L, Total Bilirubin 0.3, AST 20, ALT 19, Alkaline Phosphatase 58, Total Protein 6.2 L, Albumin 2.9 L, Globulin 3.3 H, Albumin/Globulin Ratio 0.9 L 06/19/24 06:06: POC Glucose 117 H Temp Pulse Resp BP Pulse Ox O2 Del Method O2 Flow Rate 98.0 F 89 13 154/82 H 97 Nasal Cannula 2 06/18/24 08:00 06/18/24 14:00 06/18/24 14:00 06/18/24 14:00 06/18/24 14:00 06/18/24 14:00 06/18/24 14:00 Laboratory Results - last 24 hr 06/17/24 23:26: VBG pH 7.46 H, VBG pCO2 31.1 L, VBG pO2 99.9 H, VBG HCO3 21.7 L, VBG Total CO2 22.7 L, VBG O2 Saturation 97.9 H, VBG Base Excess -2.1, VBG Lactic Acid 3.1 H 06/18/24 00:19: Urine Color Yellow, Urine Appearance Clear, Urine pH 5.5, Ur Specific [place] >= 1.030, Urine Protein 100, Urine Glucose (UA) Negative, Urine Ketones Negative, Urine Blood Negative, Urine Nitrate Negative, Urine Bilirubin Negative, Urine Urobilinogen 0.2, Ur Leukocyte Esterase Negative, Urine RBC 3-5, Urine WBC 3-5, Ur Squamous Epith Cells 5-10, Urine Bacteria 1+, Urine Opiates Screen Negative, Urine Methadone Screen Negative, Ur Barbituates Screen Negative, Ur Phencyclidine Scrn Negative, Ur Amphetamines Screen Negative, U Benzodiazepines Scrn Negative, Urine Cocaine Screen Negative, U Marijuana (THC) Screen Negative 06/18/24 00:29: WBC 10.2, RBC 4.02 L, Hgb 10.8 L, Hct 34.9 L, MCV 86.8, MCH 26.9 L, MCHC 30.9 L, RDW 22.1 H, Plt Count 274, MPV 9.5, Neut % (Auto) 84.3 H, Lymph % (Auto) 11.8, [place] % (Auto) 2.0, Eos % (Auto) 1.2, Baso % (Auto) 0.3, Neut # (Auto) 8.6 H, Lymph # (Auto) 1.2, [place] # (Auto) 0.2, Eos # (Auto) 0.1, Baso # (Auto) 0.0, PT 11.6, INR 1.04, APTT 38.3 H, D-Dimer 0.37, Sodium 135 L, Potass ium 3.6, Chloride 105, Carbon Dioxide 22, Anion Gap 11.6, BUN 10, Creatinine 0.50 L, Estimated Creat Clear 87, Estimated GFR 123, Est GFR ( Amer) 149, Glucose 133 H, Calcium 8.4, Phosphorus 4.1, Magnesium 1.4 L, Total Bilirubin 0.9, AST 92 H, ALT 31, Alkaline Phosphatase 102, Total Creatine Kinase 70, Troponin I < 0.01, NT-Pro-B Natriuret Pep 51566 H, Total Protein 7.0, Albumin 3.6, Globulin 3.4 H, Albumin/Globulin Ratio 1.1, Lipase 42, TSH 3.68, Thyroxine (T4) 7.9 06/18/24 00:44: SARS-CoV-2 (PCR) Not detected, Influenza A Untype (PCR) Detected A, Influenza Type B (PCR) Not detected 06/18/24 03:15: Troponin I 0.01 06/18/24 04:45: VBG pH 7.34, VBG pCO2 41.0, VBG pO2 42.8 H, VBG HCO3 21.7 L, VBG Total CO2 22.9 L, VBG O2 Saturation 72.7 H, VBG Base Excess -4.1 L, VBG Lactic Acid 5.1 H 06/18/24 05:25: WBC 13.6 H D, RBC 3.75 L, Hgb 9.9 L, Hct 32.5 L, MCV 86.7, MCH 26.4 L, MCHC 30.5 L, RDW 21.6 H, Plt Count 291, MPV 9.5, Neut % (Auto) 88.1 H, Lymph % (Auto) 7.5 L, [place] % (Auto) 2.1, Eos % (Auto) 1.7, Baso % (Auto) 0.2, Neut # (Auto) 12.0 H, Lymph # (Auto) 1.0, [place] # (Auto) 0.3, Eos # (Auto) 0.2, Baso # (Auto) 0.0, Sodium 135 L, Potassium 2.9 L*, Chloride 101, Carbon Dioxide 30, Anion Gap 6.9, BUN 10, Creatinine 0.60, Estimated Creat Clear 93, Estimated GFR 100, Est GFR ( Amer) 121, Glucose 126 H, Lactate 1.7, Calcium 8.3 L, Magnesium 1.3 L, Total Bilirubin 0.6, AST 25 D, ALT 21 D, Alkaline Phosphatase 89, Troponin I < 0.01, NT-Pro-B Natriuret Pep 50057 H, Total Protein 6.3, Albumin 3.2 L D, Globulin 3.1, Albumin/Globulin Ratio 1.0 L 06/18/24 07:20: POC Glucose 117 H 06/18/24 08:35: Troponin I < 0.01 06/18/24 11:07: POC Glucose 203 H I & O for Last 24 hours: Intake & Output 06/16/24 06/17/24 06/18/24 06/19/24 23:59 23:59 23:59 23:59 Intake Total 870 / 990 360 / 360 Output Total 4450 / 4450 2049 / 2049 Balance -3580 / -3460 -1690 / -1690 Weight 220 lb 229 lb 9.6 oz 230 lb 9.6 oz Intake & Output 06/15/24 06/16/24 06/17/24 06/18/24 23:59 23:59 23:59 23:59 Intake Total 630 / 630 Output Total 3250 / 3250 Balance -2620 / -2620 Weight 220 lb 229 lb 9.6 oz Microbiology Reports for the Last 24 Hours: Microbiology 06/18/24 12:22 Foot,Left - Wound Gram Stain - Final 06/18/24 12:22 Foot,Left - Wound Wound Culture - Preliminary 06/18/24 06:30 Thigh - Left Gram Stain - Final 06/18/24 06:30 Thigh - Left Wound Culture - Preliminary 06/18/24 00:29 Blood Blood Culture - Preliminary NO GROWTH AFTER 24 HOURS 06/18/24 00:29 Blood Blood Culture - Preliminary NO GROWTH AFTER 24 HOURS Constitutional Constitutional: no acute distress and cooperative *Routine HEENT Exam Eye: Present PERRL *Routine Respiratory Exam Respiratory: Absent accessory muscle use, wheezes or crackles Comments: reduced breath sounds throughout, mild wheezing *Routine Cardiovascular Exam Cardiovascular: Present RRR, Normal S1 and Normal S2; Absent murmur, gallop or rubs *Routine Abdominal Exam Abdominal: Present soft; Absent tenderness *Routine Extremities Exam Comments: severe BLE erythema, edema, skin breakdown, weaping, onychomyocis *Routine Skin Exam Skin: Present erythema, lesions, wounds, rash and cracked *Routine Neurological Exam Neurological: Present alert and oriented X3 Routine Psychiatric Exam Psychiatric: Present cooperative Progress Note: A&P Assessment and plan (1) Cor pulmonale, acute: Status: Acute (2) Flu: Status: Acute (3) Heart failure: Status: Acute (4) Pressure ulcers of skin of multiple topographic sites: Status: Acute (5) Chronic obstructive pulmonary disease: Status: Acute (6) Cardiomegaly: Status: Acute (7) Failure to thrive: Status: Acute (8) Generalized muscle weakness: Status: Acute (9) Diabetes mellitus: Status: Acute (10) Impaired ambulation: Status: Acute (11) Skin ulcer of right heel: Status: Acute (12) Pressure ulcer of left heel: Status: Acute (13) Lymphedema of both lower extremities: Status: Acute (14) Osteopenia determined by x-ray: Status: Acute (15) Acquired hallux valgus of both feet: Status: Acute Assessment and Plan Assessment and Plan for All Diagnoses:: Acute Cor Pulmonale - new dx this admission with ProBNP 21k, pulm vascular congestion on CXR, hypoxia, BLE Edema - severe RV dilation/dysfunction with PHtn noted on ECHO - pt denies chronic resp conditions but she just recovered from MRSA PNA and now has Influenza - suspect FARHAD given body habitus - CTA neg for PE - pos for bronchiolitis and bronchopneumonia - continue diuresis and Lovenox Acute Hypoxic Respiratory Failure - Influenza A - recent MRSA PNA/intubation in [place] - current influenza - likely underlying FARHAD - CTA neg for PE - pos for bronchiolitis and bronchopneumonia BLE Edema - chronic venous stasis with CEAP 6 skin break down, LE Edema - chronic venous stasis due to spine injury, worse recently with hospitalization and even worse mobility - BLE neg for DVT - recommend Clarisa boots/wound care Obesity, BMI 39 - severe and life limiting - consider OP GLP-1 Chronic Debility due to spinal stesnosis and spinal cord injury - wheelchair bound since 2009, can pivot to chair, or walk 5 feet with walker - PT evaluation Recent MRSA Bacteremia - with intubation and 11 day admission at [facility] in [place] - will attempt to obtain records 06/19: CV stable. She needs f/u in our office 1-2 weeks post discharge for supervisor long goods management of Cor Pulmonale.
[2024-06-19 13:30] LABS: Vancomycin,Trough 21.7 ug/mL (5.0-10.0)
--- NOTE | 2024-06-19 13:35 | P.CONPHA_ITS ---
Pharmacy Consult Date: 06/19/24 Time: 13:35 Referring provider: DR. RAMSEY Reason for Consult:: VANCOMYCIN LEVEL Allergies Allergy/AdvReac Type Severity Reaction Status Date / Time No Known Allergies Allergy Verified 06/18/24 00:43 Home Medications ?Medication ?Instructions ?Recorded ?Confirmed ?Type bumetanide 1 mg tablet 1 mg PO DAILY 06/18/24 06/18/24 History lisinopril 20 2 tab PO DAILY 06/18/24 06/18/24 History mg-hydrochlorothiazide 12.5 mg tablet pantoprazole 40 mg tablet,delayed 40 mg PO BID 06/18/24 06/18/24 History release ropinirole 3 mg tablet 3 mg PO TIDP PRN Restless Leg(S) 06/18/24 06/18/24 History New Prescriptions to Start Prescriptions: Height: 1.63 m Weight: 104.5 kg Laboratory Results:: Laboratory Results - last 24 hr 06/18/24 20:34: POC Glucose 126 H 06/19/24 05:23: WBC 8.6 D, RBC 3.40 L, Hgb 8.9 L D, Hct 29.4 L, MCV 86.5, MCH 26.2 L, MCHC 30.3 L, RDW 21.6 H, Plt Count 280, MPV 9.7, Neut % (Auto) 79.3, Lymph % (Auto) 14.2, [place] % (Auto) 3.3, Eos % (Auto) 2.3, Baso % (Auto) 0.2, Neut # (Auto) 6.8, Lymph # (Auto) 1.2, [place] # (Auto) 0.3, Eos # (Auto) 0.2, Baso # (Auto) 0.0, Sodium 138, Potassium 3.8 D, Chloride 103, Carbon Dioxide 28, Anion Gap 10.8, BUN 13 D, Creatinine 0.80 D, Estimated Creat Clear 91, Estimated GFR 72, Est GFR ( Amer) 87 D, Glucose 121 H, Lactate 1.3, Calcium 7.9 L, Magnesium 1.3 L, Total Bilirubin 0.3, AST 20, ALT 19, Alkaline Phosphatase 58, Total Protein 6.2 L, Albumin 2.9 L, Globulin 3.3 H, Albumin/Globulin Ratio 0.9 L 06/19/24 06:06: POC Glucose 117 H 06/19/24 12:02: Vancomycin Trough 21.7 H Medical History: Medical History (Updated 06/18/24 @ 15:38 by YOCASTA Russo) Hypertension Assessment and Plan Assessment and plan all Dx Assessment and Plan for all problems:: Pharmacokinetic dosing service Patient: Floor: Weight: 104.5 Kilograms Vancomycin single level analysis: Current dose being given: 1500 mg Current dosing interval: 12 hrs Current infusion time (hrs): 2 Single level Trough Data: Trough level obtained: 21.7 mcg/ml Timing of trough - # of hrs before next dose: 1 Hrs Desired peak: 35 mcg/ml Desired trough: 15 mcg/ml Diagnosis: Relevant medical/social history: Cultures and sensitivities: Other labs: Estimated PK Parameters: New rate constant (imelda): 0.060 hr-1 Half-life: 11.55 Hours Vd from levels: 73.15 Liters (0.7 L/kg) CLvanco=?? 4.389 L/hr Estimated New Dose and Interval Recommended dose: 1682.9 mg Recommended interval: 16.1 Hrs Patient response: Patient is responding to treatment [yes/no] wbc decreasing, S/SX reduced [yes/no] Renal function is stable/unstable Recommendations: Give Vancomycin 1750 mg q 18 hrs. Infuse over 2 hrs Expected Cpeak: 34.1 mcg/mL Expected Ctrough: 13.1 mcg/mL AUC 0-24 /DINAH Data: DINAH 0.5 mcg/mL:?? AUC/DINAH:? 1063.3 DINAH 1.0 mcg/mL:?? AUC/DINAH:? 531.6
[2024-06-19] MEDS: PHA TO NURSING INSTRUCTION 1 EACH NOTAPPLIC (14:19)
--- NOTE | 2024-06-19 19:08 | EXP.ACUTE.PN ---
Subjective *Date: 06/19/24 *Time: 21:01 Interval history: Patient states she feels little better today. Diuresing well. Decreasing oxygen requirement. Afebrile. No nausea or vomiting. Working with therapy Medical Exam Vital signs and Labs for Last 24 Hours: Vital Signs Temp Pulse Resp BP Pulse Ox O2 Del Method O2 Flow Rate 06/19/24 18:16 Nasal Cannula 2 06/19/24 17:00 Nasal Cannula 2 06/19/24 16:00 97.8 F 96 H 18 151/83 H 99 Nasal Cannula 2 06/19/24 15:00 Nasal Cannula 2 06/19/24 13:00 Nasal Cannula 2 06/19/24 12:00 99.0 F 92 H 18 152/98 H 98 Nasal Cannula 2 06/19/24 11:00 Nasal Cannula 2 06/19/24 09:00 Room Air 06/19/24 08:00 Nasal Cannula 2 06/19/24 08:00 97.9 F 91 H 20 155/87 H 92 L Nasal Cannula 2 06/19/24 06:07 Nasal Cannula 4 06/19/24 04:51 Nasal Cannula 06/19/24 04:00 97.7 F 86 18 157/88 H 97 Nasal Cannula 2 06/19/24 03:00 Nasal Cannula 4 06/19/24 01:00 Nasal Cannula 4 06/19/24 00:00 97.5 F L 86 18 157/95 H 98 Nasal Cannula 2 06/18/24 22:36 Nasal Cannula 4 06/18/24 20:29 Nasal Cannula 4 06/18/24 20:00 97.6 F 87 16 137/78 93 L Nasal Cannula 2 06/18/24 20:00 Nasal Cannula 4 Intake and Output 06/19/24 06/19/24 06/19/24 07:59 15:59 23:59 Intake Total 120 / 1120 640 / 1120 360 / 1120 Output Total 650 / 4050 1400 / 4050 2000 / 4050 Balance -530 / -2930 -760 / -2930 -1640 / -2930 Intake: Intake, Oral Amount 120 / 1120 640 / 1120 360 / 1120 Output: Output, Urine Amount 650 / 4050 1400 / 4050 2000 / 4050 Other: Number of Unmeasured Voids 0 0 Number of Bowel Movements 1 Weight 104.598 kg 104.5 kg Patient Weight 06/19/24 23:59 Weight 104.5 kg Laboratory Results - last 24 hr 06/18/24 20:34: POC Glucose 126 H 06/19/24 05:23: WBC 8.6 D, RBC 3.40 L, Hgb 8.9 L D, Hct 29.4 L, MCV 86.5, MCH 26.2 L, MCHC 30.3 L, RDW 21.6 H, Plt Count 280, MPV 9.7, Neut % (Auto) 79.3, Lymph % (Auto) 14.2, [place] % (Auto) 3.3, Eos % (Auto) 2.3, Baso % (Auto) 0.2, Neut # (Auto) 6.8, Lymph # (Auto) 1.2, [place] # (Auto) 0.3, Eos # (Auto) 0.2, Baso # (Auto) 0.0, Sodium 138, Potassium 3.8 D, Chloride 103, Carbon Dioxide 28, Anion Gap 10.8, BUN 13 D, Creatinine 0.80 D, Estimated Creat Clear 91, Estimated GFR 72, Est GFR ( Amer) 87 D, Glucose 121 H, Lactate 1.3, Calcium 7.9 L, Magnesium 1.3 L, Total Bilirubin 0.3, AST 20, ALT 19, Alkaline Phosphatase 58, Total Protein 6.2 L, Albumin 2.9 L, Globulin 3.3 H, Albumin/Globulin Ratio 0.9 L 06/19/24 06:06: POC Glucose 117 H 06/19/24 12:02: Vancomycin Trough 21.7 H I & O for Labs for Last 24 Hours: Intake & Output 06/16/24 06/17/24 06/18/24 06/19/24 23:59 23:59 23:59 23:59 Intake Total 870 / 990 1120 / 1120 Output Total 4450 / 4450 4050 / 4050 Balance -3580 / -3460 -2930 / -2930 Weight 99.79 kg 104.145 kg 104.5 kg Microbiology Reports for the Last 24 Hours: Microbiology 06/18/24 12:22 Foot,Left - Wound Gram Stain - Final 06/18/24 12:22 Foot,Left - Wound Wound Culture - Preliminary 06/18/24 06:30 Thigh - Left Gram Stain - Final 06/18/24 06:30 Thigh - Left Wound Culture - Preliminary 06/18/24 00:29 Blood Blood Culture - Preliminary NO GROWTH AFTER 24 HOURS 06/18/24 00:29 Blood Blood Culture - Preliminary NO GROWTH AFTER 24 HOURS Constitutional: Present mild distress, morbidly obese, chronically ill appearing and cooperative Head: Present atraumatic and normocephalic ENT: Present normal exam Respiratory: Present crackles (in bases) and normal respiratory effort; Absent rhonchi or wheezes Cardiac: Present Reg Rate and Rhythm GI: Present soft; Absent distention Extremities: Present edema Comment:: Chronic skin changes bilateral lower extremity, vascular wounds on feet. Erythema from insufficiency, improving edema Skin: Present erythema and wounds Neuro: Present Grossly Intact, alert, awake, oriented x 3 and moves all extremities Comment:: Globally weak, strength in legs 3/5 Assessment and Plan *Assessment and plan (1) Influenza A: Status: Acute Category: Medical Code(s): J10.1 - Influenza due to other identified influenza virus with other respiratory manifestations (2) Cor pulmonale, acute: Status: Acute Category: Medical Code(s): I26.09 - Other pulmonary embolism with acute cor pulmonale (3) Acute hypoxic respiratory failure: Status: Acute Category: Medical Code(s): J96.01 - Acute respiratory failure with hypoxia (4) Venous stasis ulcers: Status: Acute Category: Medical Code(s): I83.009 - Varicose veins of unspecified lower extremity with ulcer of unspecified site; L97.909 - Non-pressure chronic ulcer of unspecified part of unspecified lower leg with unspecified severity (5) MRSA (methicillin resistant staph aureus) culture positive: Status: Acute Category: Medical Code(s): Z22.322 - Carrier or suspected carrier of Methicillin resistant Staphylococcus aureus (6) Pressure ulcers of skin of multiple topographic sites: Status: Acute Category: Medical Code(s): L89.90 - Pressure ulcer of unspecified site, unspecified stage (7) Generalized muscle weakness: Status: Acute Category: Medical Code(s): M62.81 - Muscle weakness (generalized) (8) Chronic obstructive pulmonary disease: Status: Acute Qualifiers: COPD type: unspecified COPD Qualified Code(s): J44.9 - Chronic obstructive pulmonary disease, unspecified Category: Medical Code(s): J44.9 - Chronic obstructive pulmonary disease, unspecified (9) Diabetes mellitus: Status: Acute Qualifiers: Diabetes mellitus type: type 2 Diabetes mellitus group home insulin use: without watermelon inspector use Diabetes mellitus complication status: with circulatory complication Diabetes mellitus complication detail: with peripheral angiopathy without gangrene Qualified Code(s): E11.51 - Type 2 diabetes mellitus with diabetic peripheral angiopathy without gangrene Category: Medical Code(s): E11.9 - Type 2 diabetes mellitus without complications (10) Failure to thrive: Status: Acute Qualifiers: Failure to thrive age range: in adult Qualified Code(s): R62.7 - Adult failure to thrive Category: Medical Plan 68-year-old female admitted for CHF exacerbation, volume overload, failure to thrive. Pulmonology and cardiology consulted and assisting with care. Responding well to diuresis. Evaluated by therapy, recommend placement. Awaiting insurance approval for [facility]. Continues to require inpatient management. Problems addressed as follows: Acute Cor Pulmonale Acute heart failure with preserved ejection fraction Bilateral lower extremity edema - new dx this admission with ProBNP 21k, pulm vascular congestion on CXR, hypoxia, BLE Edema -Responding well to diuresis, -6 L since admission. Continue Bumex 1 mg IV twice daily. - severe RV dilation/dysfunction with PHtn noted on ECHO -Continues to require supplemental oxygen, wean as tolerated. Currently on 4 L. Goal sats greater 90%. Acute Hypoxic Respiratory Failure Influenza A - recent MRSA PNA/intubation in [place] -Diagnosed with flu a on admission. -Oxygen as above. -Continue Tamiflu 75 mg twice daily. 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 Debrided at bedside. - Continue Zosyn and vancomycin for broad-spectrum antibiotic coverage of superficial wounds -Count normal 8.6, hemoglobin 8.9, chronic anemia. Kidney function normal with BUN 13, creatinine 0.8. Close monitoring of kidney function on antibiotics Obesity, BMI 39 -Complicates all aspects of her care Chronic Debility due to spinal stesnosis and spinal cord injury - wheelchair bound since 2009, can pivot to chair, or walk 5 feet with walker - PT evaluation, recommend placement. Accepted to [facility] pending insurance approval Repeat CBC, CMP, magnesium ordered for the morning. of note patient is not on Abilify. Was in her med rec originally on admission but she has not been on it for over 6 months. Full code Cardiac diet Continue Lovenox 40 mg subcu daily
[2024-06-19 20:24] LABS: POC Glucose,Bedside 93 (70-110)
[2024-06-19] MEDS: PANTOPRAZOLE 40MG TABLET 40 MG PO (20:29)
[2024-06-19] MEDS: VANCOMYCIN/WATER FOR INJ (PEG) 1.75 GM/350 ML PIGGYBACK IV (22:11)
[2024-06-20] MEDS: PIPERACILLIN/TAZO 3.375 GM in 0.9 % SODIUM CHLORIDE 50 ML IV ×2 (01:30→09:55)
[2024-06-20 02:16] LABS: POC Glucose,Bedside 101 (70-110)
[2024-06-20 04:00] VITALS: BP 145/87; PULSE 87; RESP 17; TEMP 36.8; O2SAT 96; BMI 37.5
--- NOTE | 2024-06-20 06:24 | PC.NURSE ---
Alert and oriented. 2L NC, new requirement, lung sounds wheezing with crackles. Portillo in place, draining urine. Multiple sores on bilateral lower extremities and bottom. Total care, lift being used for transfers. Continent of bowel. Call light in reach.
[2024-06-20 07:58] LABS: Basophils % 0.5 % (0.1-2.0); Eosinophils # 0.6 K/mm3 (0.0-0.4); Eosinophils % 8.4 % (0.1-12.0); Hematocrit 28.8 % (37.0-47.0); Hemoglobin 8.6 g/dL (12.2-16.2); Lymphocytes # 0.9 K/mm3 (0.7-4.5); Lymphocytes % 14.2 % (10-50); Mean Corpuscular HGB Conc 29.9 g/dL (31.8-35.4); Mean Corpuscular Hemoglobin 26.3 pg (27.0-31.2); Mean Corpuscular Volume 88.1 fl (81-99); Mean Platelet Volume 9.8 fl (7.4-10.4); Monocytes # 0.3 K/mm3 (0.1-1.0); Monocytes % 4.3 % (1.7-9.3); Neutrophils # 4.7 K/mm3 (1.8-7.8); Neutrophils % 71.8 % (37.0-80.0); Platelet Count 286 K/mm3 (142-424); Red Blood Count 3.27 M/mm3 (4.20-5.40); Red Cell Distribution Width 21.3 % (11.5-17.5); White Blood Count 6.6 K/mm3 (4.8-10.8)
[2024-06-20 08:00] VITALS: BP 121/88; PULSE 94; RESP 17; TEMP 36.4; O2SAT 93
[2024-06-20 08:28] LABS: Alanine Aminotransferase 16 U/L (12-78); Albumin Level 2.7 g/dl (3.5-5.0); Albumin/Globulin Ratio 0.9 (1.1-1.8); Alkaline Phosphatase 64 U/L (38-126); Anion Gap 6.1 mEq/L (5-15); Aspartate Amino Transferase 27 U/L (14-36); Bilirubin,Total 0.5 mg/dl (0.2-1.3); Blood Urea Nitrogen 14 mg/dl (7-17); Calcium 7.7 mg/dl (8.4-10.2); Carbon Dioxide 31 mmol/L (22.0-30.0); Chloride 100 mmol/L (98-107); Creatinine Clearance Estimated 87 mL/min (50-200); Estimated Glomerular Filt Rate 100 ml/min (>60); GFR (African American) 121 ML/MIN (>60); Glucose 84 mg/dl (74-100); Magnesium 1.6 mg/dl (1.6-2.3); Potassium 4.1 mmoL/L (3.5-5.1); Sodium 133 mmol/L (136-145); Total Protein,Serum 5.7 g/dl (6.3-8.2)
[2024-06-20] MEDS: ENOXAPARIN 40MG/0.4ML SYRINGE 40 MG SUBCUT (09:55)
[2024-06-20] MEDS: SANTYL TP (09:56)
[2024-06-20] MEDS: BUMETANIDE 1MG/4ML VIAL 1 MG IV (09:56)
[2024-06-20] MEDS: OSELTAMIVIR 75MG CAPSULE 75 MG PO (09:56)
--- NOTE | 2024-06-20 10:40 | EXP.DC.SUM ---
General Admission date:: 06/18/24 Discharge date: 06/20/24 HPI HPI HPI: This 68-year-old female looks molder vacuum much older than her stated age, significant peripheral vascular disease and congestive heart failure by history has had increased weakness.. Noted that she was in [place] for a total of 11 days last month she had pneumonia and required intubation at that time. Noted also a GI bleed presumably from too much NSAID use.. She had MRSA at that time Patient is noted for multiple back surgeries with metal rods. She has very poor balance she has difficulty moving maneuvering so basically sits most of the time basically she lives alone there is a great potential that she will need to have case management. 06/18/24: Podiatry Consult Patient sitting up in her chair upon entering the room. Bilateral legs are erythematous and swollen. Feet had b/l heel wounds and irritated skin around each of her toes. Patient has Lymphedema and some peripheral vascular disease with non-healing ulcers. Hospital Course Hospital Course Hospital Course: 68-year-old female admitted for CHF exacerbation, volume overload, failure to thrive. Pulmonology and cardiology consulted and assisting with care. Patient responded well to diuresis. Showing significant clinical improvement. Weaning oxygen to 2 L by day of discharge. Continues to have wound care to address leg wounds. Continue antibiotics for her leg wounds. Continue Tamiflu for flu. Stable to discharge to [facility] for further prison and rehab. Problems addressed as follows: Acute Cor Pulmonale Acute heart failure with preserved ejection fraction Bilateral lower extremity edema - new dx this admission with ProBNP 21k, pulm vascular congestion on CXR, hypoxia, BLE Edema. Patient initiated on aggressive diuresis. Has diuresed over 8 L since admission. Recommend continuing Bumex 1 mg oral twice daily. Echo showed severe right ventricular dilation and dysfunction with pulmonary hypertension noted. Continue supplemental oxygen as needed for goal sats greater 90%. Currently on 2 L. -Cardiology consulted and assisted with care during admission. Follow-up with cardiology as an outpatient. Acute Hypoxic Respiratory Failure Influenza A - recent MRSA PNA/intubation in [place]. Patient was diagnosed with flu a on admission to our facility. Oxygen requirement as above. Gradually weaned during admission, down to 2 L by day of discharge. Initiated on Tamiflu. Will continue 5 days total of Tamiflu 75 mg twice daily. Last dose morning of 06/22. 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 Debrided at bedside. Initiated on Zosyn and vancomycin for broad-spectrum coverage during admission. Having growth of gram-negative rods from wound cultures. White count is normalized. 6.6 on day of discharge. Transition to Levaquin and doxycycline to complete 7 days of antibiotics for leg wounds. Continue with daily dressing changes using Santyl ointment. Would benefit from considering Unna boots on legs. Recommend outpatient follow-up with podiatry Obesity, BMI 39: Complicates all aspects of her care Chronic Debility due to spinal stesnosis and spinal cord injury - wheelchair bound since 2009, can pivot to chair, or walk 5 feet with walker. PT evaluated and worked with patient during admission. Recommended placement. Graciously excepted by Mina Hoover for further care. Repeat CBC, CMP, magnesium needed in 1 week of note patient is not on Abilify. Was in her med rec originally on admission but she has not been on it for over 6 months. Total time spent on discharge 32 minutes in counseling, documentation, chart review, and direct care with patient. Exam Data for Last 24 hours Vital signs and Labs for Last 24 Hours: Temp Pulse Resp BP Pulse Ox O2 Del Method O2 Flow Rate 97.6 F 94 H 17 121/88 93 L Nasal Cannula 2 06/20/24 08:00 06/20/24 08:00 06/20/24 08:00 06/20/24 08:00 06/20/24 08:00 06/20/24 09:00 06/20/24 09:00 Laboratory Results - last 24 hr 06/19/24 12:02: Vancomycin Trough 21.7 H 06/19/24 20:10: POC Glucose 93 06/20/24 02:07: POC Glucose 101 06/20/24 06:20: WBC 6.6, RBC 3.27 L, Hgb 8.6 L, Hct 28.8 L, MCV 88.1, MCH 26.3 L, MCHC 29.9 L, RDW 21.3 H, Plt Count 286, MPV 9.8, Neut % (Auto) 71.8, Lymph % (Auto) 14.2, [place] % (Auto) 4.3, Eos % (Auto) 8.4, Baso % (Auto) 0.5, Neut # (Auto) 4.7, Lymph # (Auto) 0.9, [place] # (Auto) 0.3, Eos # (Auto) 0.6 H, Baso # (Auto) 0.0, Sodium 133 L, Potassium 4.1, Chloride 100, Carbon Dioxide 31 H, Anion Gap 6.1, BUN 14, Creatinine 0.60 D, Estimated Creat Clear 87, Estimated GFR 100, Est GFR ( Amer) 121 D, Glucose 84, Calcium 7.7 L, Magnesium 1.6 D, Total Bilirubin 0.5, AST 27 D, ALT 16, Alkaline Phosphatase 64, Total Protein 5.7 L, Albumin 2.7 L, Globulin 3.0, Albumin/Globulin Ratio 0.9 L I & O for Last 24 hours: Intake & Output 06/17/24 06/18/24 06/19/24 06/20/24 23:59 23:59 23:59 23:59 Intake Total 870 / 990 1120 / 1120 270 / 270 Output Total 4450 / 4450 4050 / 4050 500 / 500 Balance -3580 / -3460 -2930 / -2930 -230 / -230 Weight 99.79 kg 104.145 kg 104.5 kg 99.79 kg Microbiology Reports for the Last 24 Hours: Microbiology 06/18/24 12:22 Foot,Left - Wound Gram Stain - Final 06/18/24 12:22 Foot,Left - Wound Wound Culture - Preliminary Gram Negative Rods 06/18/24 06:30 Thigh - Left Gram Stain - Final 06/18/24 06:30 Thigh - Left Wound Culture - Preliminary 06/18/24 06:30 Rectum CRE Surveillance Culture - Final 06/18/24 00:29 Blood Blood Culture - Preliminary NO GROWTH AFTER 48 HOURS 06/18/24 00:29 Blood Blood Culture - Preliminary NO GROWTH AFTER 48 HOURS Constitutional Constitutional: no acute distress, morbidly obese, chronically ill appearing and cooperative *Routine HEENT Exam Head: Present normocephalic and atraumatic Eye: Present EOMI and PERRL ENT: Present mucous membranes moist *Routine Neck Exam Neck: Present supple *Routine Respiratory Exam Respiratory: Present rhonchi and wheezes; Absent accessory muscle use or crackles Comments: reduced breath sounds throughout, mild wheezing *Routine Cardiovascular Exam Cardiovascular: Present RRR, Normal S1 and Normal S2; Absent murmur, gallop or rubs *Routine Abdominal Exam Abdominal: Present soft; Absent tenderness *Routine Rectal Exam Patient deferred: visual exam *Routine Exam Patient deferred: external exam *Routine Extremities Exam Extremities: Present edema and tenderness; Absent cyanosis Comments: severe BLE erythema, edema, skin breakdown, weaping, onychomyocis *Routine Skin Exam Skin: Present erythema, lesions, wounds, rash and cracked *Routine Neurological Exam Neurological: Present alert, oriented X3 and moving all extremities; Absent altered mental status Routine Psychiatric Exam Psychiatric: Present cooperative Results Data Completed and Pending Labs on day of discharge: Labs from last 24 hours 06/20/24 06/20/24 06/19/24 06:20 02:07 20:10 WBC 6.6 RBC 3.27 L Hgb 8.6 L Hct 28.8 L MCV 88.1 MCH 26.3 L MCHC 29.9 L RDW 21.3 H Plt Count 286 MPV 9.8 Neut % (Auto) 71.8 Lymph % (Auto) 14.2 [place] % (Auto) 4.3 Eos % (Auto) 8.4 Baso % (Auto) 0.5 Neut # (Auto) 4.7 Lymph # (Auto) 0.9 [place] # (Auto) 0.3 Eos # (Auto) 0.6 H Baso # (Auto) 0.0 Sodium 133 L Potassium 4.1 Chloride 100 Carbon Dioxide 31 H Anion Gap 6.1 BUN 14 Creatinine 0.60 D Estimated Creat Clear 87 Estimated GFR 100 Est GFR ( Amer) 121 D Glucose 84 POC Glucose 101 93 Calcium 7.7 L Magnesium 1.6 D Total Bilirubin 0.5 AST 27 D ALT 16 Alkaline Phosphatase 64 Total Protein 5.7 L Albumin 2.7 L Globulin 3.0 Albumin/Globulin Ratio 0.9 L Vancomycin Trough 06/19/24 12:02 WBC RBC Hgb Hct MCV MCH MCHC RDW Plt Count MPV Neut % (Auto) Lymph % (Auto) [place] % (Auto) Eos % (Auto) Baso % (Auto) Neut # (Auto) Lymph # (Auto) [place] # (Auto) Eos # (Auto) Baso # (Auto) Sodium Potassium Chloride Carbon Dioxide Anion Gap BUN Creatinine Estimated Creat Clear Estimated GFR Est GFR ( Amer) Glucose POC Glucose Calcium Magnesium Total Bilirubin AST ALT Alkaline Phosphatase Total Protein Albumin Globulin Albumin/Globulin Ratio Vancomycin Trough 21.7 H Preliminary micro results at discharge 06/18/24 12:22 Wound Culture - Preliminary Foot,Left - Wound Gram Negative Rods 06/18/24 06:30 Wound Culture - Preliminary Thigh - Left 06/18/24 00:29 Blood Culture - Preliminary Blood NO GROWTH AFTER 48 HOURS 06/18/24 00:29 Blood Culture - Preliminary Blood NO GROWTH AFTER 48 HOURS DS: Diagnosis Discharge Diagnosis (1) Influenza A: Status: Acute Code(s): J10.1 - Influenza due to other identified influenza virus with other respiratory manifestations (2) Cor pulmonale, acute: Status: Acute Code(s): I26.09 - Other pulmonary embolism with acute cor pulmonale (3) Acute hypoxic respiratory failure: Status: Acute Code(s): J96.01 - Acute respiratory failure with hypoxia (4) Venous stasis ulcers: Status: Acute Code(s): I83.009 - Varicose veins of unspecified lower extremity with ulcer of unspecified site; L97.909 - Non-pressure chronic ulcer of unspecified part of unspecified lower leg with unspecified severity (5) MRSA (methicillin resistant staph aureus) culture positive: Status: Acute Code(s): Z22.322 - Carrier or suspected carrier of Methicillin resistant Staphylococcus aureus (6) Pressure ulcers of skin of multiple topographic sites: Status: Acute Code(s): L89.90 - Pressure ulcer of unspecified site, unspecified stage (7) Generalized muscle weakness: Status: Acute Code(s): M62.81 - Muscle weakness (generalized) (8) Chronic obstructive pulmonary disease: Status: Acute Code(s): J44.9 - Chronic obstructive pulmonary disease, unspecified Qualifiers: COPD type: unspecified COPD Qualified Code(s): J44.9 - Chronic obstructive pulmonary disease, unspecified (9) Diabetes mellitus: Status: Acute Code(s): E11.9 - Type 2 diabetes mellitus without complications Qualifiers: Diabetes mellitus complication detail: with peripheral angiopathy without gangrene Diabetes mellitus complication status: with circulatory complication Diabetes mellitus mcc insulin use: without buttermaker continuous churn use Diabetes mellitus type: type 2 Qualified Code(s): E11.51 - Type 2 diabetes mellitus with diabetic peripheral angiopathy without gangrene (10) Failure to thrive: Status: Acute Qualifiers: Failure to thrive age range: in adult Qualified Code(s): R62.7 - Adult failure to thrive Meds Home Medications and Allergies Home Medications ?Medication ?Instructions ?Recorded ?Confirmed ?Type Lactobacillus acidophilus and 1 cap PO DAILY #30 caps 06/20/24 Rx rhamnosus 15 billion cell capsule (Probiotic) acetaminophen 325 mg tablet 650 mg (2 x 325 mg) PO Q4HP PRN 06/20/24 Rx Fever Or Mild Pain (1-3) 30 days #100 tabs collagenase clostridium histo. 250 1 applic topical DAILY leg wounds 06/20/24 Rx unit/gram topical ointment (Santyl) 30 days #90 grams doxycycline hyclate 100 mg capsule 100 mg PO BID 5 days #10 caps 06/20/24 Rx ipratropium 0.5 mg-albuterol 3 mg 3 ml inhalation Q6HP PRN Shortness 06/20/24 Rx (2.5 mg base)/3 mL nebulization Of Breath 30 days #180 mL soln levofloxacin 750 mg tablet 750 mg PO DAILY #4 tabs 06/20/24 Rx lisinopril 20 1 tab PO DAILY 30 days #30 tabs 06/20/24 Rx mg-hydrochlorothiazide 12.5 mg tablet nystatin 100,000 unit/gram topical 1 applic topical BIDP PRN 06/20/24 Rx powder EXCORIATED AREAS 10 days #60 grams oseltamivir 75 mg capsule (Tamiflu) 75 mg PO BID 2 days #4 caps 06/20/24 Rx pantoprazole 40 mg tablet,delayed 40 mg PO BID 30 days #60 tabs 06/20/24 Rx release ropinirole 3 mg tablet 3 mg PO TIDP PRN Restless Leg(S) 06/20/24 Rx 30 days #90 tabs New Prescriptions to Start Prescriptions: acetaminophen Yash Pagan clostridium histo. [Santyl] Yash Pagan doxycycline hyclate Yash Pagan ipratropium-albuterol Yash Pagan L. acidophilus-L. rhamnosus [Probiotic] Yash Pagan levofloxacin Yash Pagan lisinopril-hydrochlorothiazide Yash Pagan nystatin Yash Pagan oseltamivir [Tamiflu] Yash Pagan pantoprazole Yash Pagan ropinirole Yash Pagan Allergies Allergy/AdvReac Type Severity Reaction Status Date / Time No Known Allergies Allergy Verified 06/18/24 00:43 Discharge Plan Disposition Patient Disposition: er SNF Condition: Fair Discharge Order Discharge Orders: Discharge Order (Routine); Ordered 06/20/24 Ordered By: Yash Pagan Follow up Plan Follow up with: Leticia Khanna DPM [Staff Physician] - 06/22/24 1:15 pm Juan Carlos Cruz MD [Staff Physician] - Enter time for follow up Prescriptions/Medication Reconciliation: New acetaminophen 325 mg Tablet 650 mg PO Q4HP PRN (Reason: Fever Or Mild Pain (1-3)) 30 Days Qty: 100 0RF Santyl 250 unit/gram Ointment 1 applic topical DAILY 30 Days Qty: 90 0RF ipratropium-albuterol 0.5 mg-3 mg(2.5 mg base)/3 mL Solution For Nebulization 3 ml inhalation Q6HP PRN (Reason: Shortness Of Breath) 30 Days Qty: 180 0RF nystatin 100,000 unit/gram Powder 1 applic topical BIDP PRN (Reason: EXCORIATED AREAS) 10 Days Qty: 60 0RF oseltamivir [Tamiflu] 75 mg Capsule 75 mg PO BID 2 Days Qty: 4 0RF levofloxacin 750 mg tablet 750 mg PO DAILY Qty: 4 0RF Probiotic 15 billion cell capsule 1 cap PO DAILY Qty: 30 0RF doxycycline hyclate 100 mg capsule 100 mg PO BID 5 Days Qty: 10 0RF Continued ropinirole 3 mg Tablet 3 mg PO TIDP PRN (Reason: Restless Leg(S)) 30 Days Qty: 90 0RF pantoprazole 40 mg Tablet,Delayed Release (Dr/Ec) 40 mg PO BID 30 Days Qty: 60 0RF Changed lisinopril-hydrochlorothiazide 20-12.5 mg tablet 1 tab PO DAILY 30 Days Qty: 30 0RF Patient Comments: TAKE 2 TABLETS BY MOUTH ONCE DAILY IN THE MORNING FOR BLOOD PRESSURE Discontinued bumetanide 1 mg tablet 1 mg PO DAILY Problem Reconciliation Problems Reviewed?: Yes Patient Discharge Instructions ACTIVITY: Continue current activity DIET: continue same diet Patient Instructions: DI for Pressure Injuries, DI for Methicillin-Resistant Staph Infection (MRSA), DI for Influenza -- Adult, DI for Muscle Weakness, Catheter-Associated Urinary Tract Infection, NCM Pressure Injury Diet Print Language: Czech Providers Primary Care Provider: Provider,Referral Admit Provider: Yash Pagan Attending Provider: Yash Pagan
--- NOTE | 2024-06-20 12:48 | PC.NURSE ---
Report was called to [facility]. EMS notified. Awaiting their arrival. IV'd DC to bilateral arms. F/C DC. Brief placed on pt.
--- NOTE | 2024-06-23 11:12 | EXP.EVENT.NO ---
Wound culture growing MRSA resistant to doxycycline (prescribed medication), sensitive to Bactrim. Sent in Bactrim DS for 7 days to [facility]. Renal function stable. Case management will assist contacting patient.
== END 2024-06-20 13:54 ==
LOC: ER 06-18 01:37 → 2ND 06-18 02:10 → ICU 06-18 04:57 → 2ND 06-18 16:02
PROVIDERS: Nurse Practitioner Family; Admitting Provider Internal Medicine Adolescent Medicine; Emergency Provider Emergency Medicine; Visit Provider Internal Medicine Adolescent Medicine
DX: I11.0 Hypertensive heart disease with heart failure (principal); I50.33 Acute on chronic diastolic (congestive) heart failure; I26.09 Other pulmonary embolism with acute cor pulmonale; J44.9 Chronic obstructive pulmonary disease, unspecified; L03.115 Cellulitis of right lower limb; L89.612 Pressure ulcer of right heel, stage 2; I83.014 Varicose veins of right lower extremity with ulcer of heel and midfoot; L03.116 Cellulitis of left lower limb; I83.024 Varicose veins of left lower extremity with ulcer of heel and midfoot; L89.622 Pressure ulcer of left heel, stage 2; I83.011 Varicose veins of right lower extremity with ulcer of thigh; I83.021 Varicose veins of left lower extremity with ulcer of thigh; L97.111 Non-pressure chronic ulcer of right thigh limited to breakdown of skin; L97.121 Non-pressure chronic ulcer of left thigh limited to breakdown of skin; E11.621 Type 2 diabetes mellitus with foot ulcer; E11.51 Type 2 diabetes mellitus with diabetic peripheral angiopathy without gangrene; J81.1 Chronic pulmonary edema; R62.7 Adult failure to thrive; M62.81 Muscle weakness (generalized); R26.9 Unspecified abnormalities of gait and mobility; I89.0 Lymphedema, not elsewhere classified; M85.80 Other specified disorders of bone density and structure, unspecified site; M20.11 Hallux valgus (acquired), right foot; M20.12 Hallux valgus (acquired), left foot; J10.1 Influenza due to other identified influenza virus with other respiratory manifestations; J96.01 Acute respiratory failure with hypoxia; T14.8XXS Other injury of unspecified body region, sequela; E66.01 Morbid (severe) obesity due to excess calories; Z22.322 Carrier or suspected carrier of Methicillin resistant Staphylococcus aureus; Z68.39 Body mass index [BMI] 39.0-39.9, adult; Z74.1 Need for assistance with personal care; Z99.81 Dependence on supplemental oxygen; Z99.3 Dependence on wheelchair; Z87.828 Personal history of other (healed) physical injury and trauma; Z60.2 Problems related to living alone; Z79.1 Long term (current) use of non-steroidal anti-inflammatories (NSAID)
CPT/HCPCS: 11042; 36415; 51702; 71045; 71275; 73630; 73706; 80053; 80202; 80307; 81001; 82550; 82803; 82962; 83605; 83690; 83735; 83880; 84100; 84436; 84443; 84484; 85025; 85378; 85610; 85730; 87040; 87070; 87077; 87081; 87186; 87205; 87636; 93005; 93306; 93923; 93970; 97110; 97163; 97165; 97530; 99285; G0378; J1650; J1939; J1940; J2543; J3370; J3372; J3475; J3480; J7620; Q9967

== ENCOUNTER 2024-12-15 16:00 | Outpatient (CLI) | payer MEDICARE, SELFPAY ==
[2024-12-15 17:35] LABS: Hematocrit 35.6 % (37.0-47.0); Hemoglobin 10.5 g/dL (12.2-16.2); Immature Granulocytes % 0.5 %; Mean Corpuscular HGB Conc 29.5 g/dL (31.8-35.4); Mean Corpuscular Hemoglobin 22.1 pg (27.0-31.2); Mean Corpuscular Volume 74.9 fl (81-99); Nucleated Red Blood Cells % 0 %; Platelet Count 247 K/mm3 (142-424); Red Blood Count 4.75 M/mm3 (4.20-5.40); Red Cell Distribution Width-SD 47.8 fL; White Blood Count 5.6 K/mm3 (4.8-10.8)
[2024-12-15 17:50] LABS: Hemoglobin A1C 7.5 % (4.0-6.0)
[2024-12-15 17:57] LABS: Alanine Aminotransferase 17 U/L (12-78); Albumin Level 4.0 g/dl (3.5-5.0); Albumin/Globulin Ratio 1.2 (1.1-1.8); Alkaline Phosphatase 79 U/L (38-126); Anion Gap 13.3 mEq/L (5-15); Aspartate Amino Transferase 22 U/L (14-36); Bilirubin,Total 0.2 mg/dl (0.2-1.3); Blood Urea Nitrogen 13 mg/dl (7-17); Calcium 9.1 mg/dl (8.4-10.2); Carbon Dioxide 26 mmol/L (22.0-30.0); Chloride 101 mmol/L (98-107); Cholesterol 181 mg/dl (140-200); Creatinine,Serum 0.80 mg/dl (0.52-1.04); Estimated Glomerular Filt Rate 72 ml/min (>60); GFR (African American) 87 ML/MIN (>60); Globulin 3.3 g/dL (1.3-3.2); Glucose 187 mg/dl (74-100); HDL Cholesterol 62 mg/dl (40-60); Magnesium 1.5 mg/dl (1.6-2.3); Potassium 4.3 mmoL/L (3.5-5.1); Sodium 136 mmol/L (136-145); Total Protein,Serum 7.3 g/dl (6.3-8.2); Triglycerides 176 mg/dl (30-150)
[2024-12-15 18:30] LABS: Thyroid Stimulating Hormone 1.01 uIU/mL (0.465-4.68)
[2024-12-15 19:57] LABS: Ferritin 19.0 ng/ml (11.1-264)
[2024-12-15 20:58] LABS: Vitamin B12 297 pg/mL (239-931)
--- OUTSIDE RECORDS SUMMARY | 2024-12-16 12:41 | XMS_ITS | Clinical Summary ---
Author Organization [employer] ([place], [place], [place], [place]) Address [address] [place] [address] Care Team Providers Care Polysomnography Technologist Name Role Phone Unavailable Primary Care Provider Unavailabl e Allergies No known active allergies Medications bumetanide (BUMEX) 1 MG tablet Take 1 tablet (1 mg total) by mouth daily as needed (lower extremity swelling). 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 Gender Identity Not on file Sexual Orientation Not on file Last Filed Vital Signs Vital Sign Reading Time Taken Comments Blood Pressure 138/90 05/27/2024 11:10 AM EST Pulse 102 05/27/2024 11:10 AM EST Temperature 36.6 C (97.9 F) 05/27/2024 11:10 AM EST Respiratory Rate 16 05/27/2024 11:00 AM EST Oxygen Saturation 97% 05/27/2024 11:00 AM EST Inhaled Oxygen Concentration 35% 05/24/2024 5 :00 PM EST Weight 99.8 kg (220 lb) 05/16/2024 9:57 AM EST Height 162.6 cm (5' 4 ) 05/16/2024 9:57 AM EST Body Mass Index 37.76 05/16/2024 9:57 AM EST Plan of Treatment Health Maintenance Due Date Last Done Comments CT Colonography 1957 Colonoscopy 1957 Colorectal Cancer Screening 1957 DXA SCAN 1957 FOBT/FIT 1957 Fit-DNA (Cologuard) 1957 Sigmoidoscopy 1957 Depression Screening (12+) 1969 Hepatitis C Screening 08/28/1975 DTAP/TDAP/TD VACCINES (1 - Tdap) 1976 Pneumococcal 50+ years (1 of 2 - PCV) 1976 Breast Cancer Screening 1997 Shingles Vaccine (Zoster) (1 of 2) 08/28/2007 Respiratory Syncytial Virus (RSV) Adult or (1 - Risk 60-74 years 1-dose series) 2017 Falls Risk Screening 04/01/2024 Medicare IPPE (Welcome to Medicare) [id number] 05/02/2024 COVID-19 VACCINE (1 - season) 2024 Influenza Vaccine (#1) 2024 Tobacco Cessation Counseling and Screening (12+) 05/1605/16/2024 Additional Health Concerns Infection Onset Date Last Indicated MRSA (C) 05/16/2024 05/16/2024 Insurance HUMANA MEDICARE PPO Advance Directives For more information, please contact: [phone] * Full Code (Latest Code Status on File) Date Activated Date Inactivated Comments 05/16/2024 10:58 AM 05/27/2024 3:05 PM
--- OUTSIDE RECORDS SUMMARY | 2024-12-16 12:41 | XMS_ITS | Clinical Summary ---
Author Organization [facility] Address [address] [place] [address] Phone Care Team Providers Care Project Portfolio Analyst Name Role Phone Unavailable Unavailable Conditions or Problems No information available. Medications No information available. Medications Administered No information available. Allergies, Adverse Reactions, Alerts No information available. Results No information available. Plan of Care No information available. Procedures No information available. Vital Signs No information available. Immunizations No information available. Advance Directives No information available.
--- OUTSIDE RECORDS SUMMARY | 2024-12-16 12:41 | XMS_ITS | Referral Summary ---
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
--- OUTSIDE RECORDS SUMMARY | 2025-01-22 20:00 | XMS_ITS | Clinical Summary ---
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 Active 07-28 00:00: 00 TYPE 2 DIABETES W DIABETIC PERIPHERAL ANGIOPATH W/O GANGRENE Active 07-28 00:00: 00 CHRONIC OBSTRUCTIVE PULMONARY DISEASE, UNSPECIFIED Active 07-28 00:00: 00 HYPERTENSIVE HEART DISEASE WITH HEART FAILURE Active 07-28 00:00: 00 HEART FAILURE, UNSPECIFIED Active 07-28 00:00: 00 DEPRESSION, UNSPECIFIED Active 8-22 00:00: 00 SPINAL STENOSIS, SITE UNSPECIFIED Active 07-28 00:00: 00 VENOUS INSUFFICIENC Y (CHRONIC) (PERIPHERAL) Active 07-28 00:00: 00 LYMPHEDEMA, NOT ELSEWHERE CLASSIFIED Active 07-28 00:00: 00 Obesity, class 3 Active 07-28 00:00: 00 BODY MASS INDEX [BMI] 39.0-39.9, ADULT Active 07-28 00:00: 00 PERSONAL HISTORY OF PULMONARY EMBOLISM Active 07-28 00:00: 00 HISTORY OF FALLING Active 07-28 00:00: 00 OTHER STUDENT TEACHER (CURRENT) DRUG THERAPY Active 07-28 00:00: 00 Allergies, Adverse Reactions, Alerts Allergy Name Allergy Type Status Severity Reaction(s) Onset Date Inactive Date Treating Clinician Comments NKA Propensity to adverse reactions Active 2024-06 20:33:5 5 Medications Ordered Medication Name Filled Medication Name Start Date Stop Date Current Medication? Ordering Clinician Indication Dosage Frequency Signature (SIG) Comments Components Abilify 15 mg tablet 07-28 00:00: 00 Yes [id number] MEMORY 1 tablet DAILY 1 tablet DAILY (route: oral) Med Classific ation: Central Nervous System Agents acetaminoph en 325 mg tablet 07-28 00:00: 00 Yes [id number] PAIN 2 tablet EVERY 4 HOURS 2 tablet EVERY 4 HOURS (route: oral) Med Classific ation: Analgesic , Anti-infl ammatory or Antipyret ic bumetanide 1 mg tablet 07-28 00:00: 00 Yes [id number] FLUID 1 tablet 2 TIMES DAILY 1 tablet 2 TIMES DAILY (route: oral) Med Classific ation: Cardiovas cular Therapy Agents duloxetine 60 mg capsule,del ayed release 07-28 00:00: 00 Yes [id number] MOOD STABILIZER 2 capsule DAILY 2 capsule DAILY (route: oral) Med Classific ation: Central Nervous System Agents lisinopril 10 mg-hydrochl orothiazide 12.5 mg tablet 07-28 00:00: 00 Yes [id number] BLOOD PRESSURE 1 tablet DAILY 1 tablet DAILY (route: oral) Med Classific ation: Cardiovas cular Therapy Agents Pre-Protein 15 gram-60 kcal/30 mL oral liquid 07-28 00:00: 00 Yes [id number] SUPPLEMENT 30 mL DAILY 30 mL DAILY (route: oral) Med Classific ation: Electroly te Balance-N utritiona l Products ropinirole 3 mg tablet 07-28 00:00: 00 Yes [id number] TREMORS 1 tablet BEDTIME 1 tablet BEDTIME (route: oral) Med Classific ation: Central Nervous System Agents Vital Signs Vital Name Observation Time Observation Value Commen ts Temperature 2024-12-11 13:31:00.000 97.7 [degF] Temperature 2024-12-03 11:12:00.000 98.7 [degF] Temperature 2024-11-27 13:08:00.000 97.4 [degF] Pulse 2024-12-11 13:31:00.000 100 /min Pulse 2024-12-03 11:16:00.000 100 /min Pulse 2024-11-27 13:08:00.000 83 /min O2 Saturation (%) 2024-12-03 11:15:00.000 97 % O2 Saturation (%) 2024-11-27 13:08:00.000 95 % Respirations 2024-12-11 13:31:00.000 16 /min Respirations 2024-12-03 11:12:00.000 18 /min Respirations 2024-11-27 13:08:00.000 16 /min Systolic Blood Pressure 2024-12-11 13:31:00.000 154 mm [Hg] Systolic Blood Pressure 2024-12-03 11:12:00.000 150 mm [Hg] Systolic Blood Pressure 2024-11-27 13:08:00.000 144 mm [Hg] Diastolic Blood Pressure 2024-12-11 13:31:00.000 82 mm [Hg] Diastolic Blood Pressure 2024-12-03 11:12:00.000 90 mm [Hg] Diastolic Blood Pressure 2024-11-27 13:08:00.000 88 mm [Hg] Plan of Treatment Planned Activity Planned Date Details Comments Future Scheduled Test SKILLED NU RSE FOR INSTRUCTIONS / REINFORCEMENT OF / MANAGEMENT OF DIABETES TO INCLUDE DIET, SKIN CARE, MEDICATION MANAGEMENT, BLOOD GLUCOSE TESTING AND DIABETIC FOOT CARE. NOT CURRENTLY ORDERED A CHECK FINGERSTICK BLOOD SUGARS AT HOME. [code = SKILLED NURSE FOR INSTRUCTIONS / REINFORCEMENT OF / MANAGEMENT OF DIABETES TO INCLUDE DIET, SKIN CARE, MEDICATION MANAGEMENT, BLOOD GLUCOSE TESTING AND DIABETIC FOOT CARE. NOT CURRENTLY ORDERED A CHECK FINGERSTICK BLOOD SUGARS AT HOME.] Future Scheduled Test SKILLED NU RSE TO OBSERVE AND ASSESS RESPIRATORY SYSTEM TO IDENTIFY CHANGES AND INTERVENE TO MINIMIZE COMPLICATIONS. SKILLED NURSE TO PROVIDE SKILLED TEACHING RELATED TO ALTERED RESPIRATORY STATUS INCLUDING PATHOPHYSIOLOGY, NUTRITION, MEDICATION REGIMEN, AND PERMITTED ACTIVITIES. [code = SKILLED NURSE TO OBSERVE AND ASSESS RESPIRATORY SYSTEM TO IDENTIFY CHANGES AND INTERVENE TO MINIMIZE COMPLICATIONS. SKILLED NURSE TO PROVIDE SKILLED TEACHING RELATED TO ALTERED RESPIRATORY STATUS INCLUDING PATHOPHYSIOLOGY, NUTRITION, MEDICATION REGIMEN, AND PERMITTED ACTIVITIES.] Future Scheduled Test SKILLED NU RSE FOR OBSERVATION / ASSESSMENT OF GASTROINTESTINAL STATUS AND TO INTERVENE TO MINIMIZE COMPLICATIONS. SKILLED NURSE TO PROVIDE SKILLED TEACHING/REINFORCEMENT RELATED TO ALTERED GASTROINTESTINAL STATUS INCLUDING PATHOPHYSIOLOGY, SELF CARE MANAGEMENT, NUTRITIONAL REQUIREMENTS, AND MEDICATION REGIMEN [code = SKILLED NURSE FOR OBSERVATION / ASSESSMENT OF GASTROINTESTINAL STATUS AND TO INTERVENE TO MINIMIZE COMPLICATIONS. SKILLED NURSE TO PROVIDE SKILLED TEACHING/REINFORCEMENT RELATED TO ALTERED GASTROINTESTINAL STATUS INCLUDING PATHOPHYSIOLOGY, SELF CARE MANAGEMENT, NUTRITIONAL REQUIREMENTS, AND MEDICATION REGIMEN] Future Scheduled Test SKILLED NU RSE TO OBSERVE AND ASSESS PATIENT WITH GENERALIZED DEPRESSION. ASSESS NEED FOR MEDICATION, MEDICATION CHANGES AND POTENTIAL NEED FOR REFERRAL TO PROVIDE COUNSELING AND ASSISTANCE WITH MANAGING DEPRESSION. [code = SKILLED NURSE TO OBSERVE AND ASSESS PATIENT WITH GENERALIZED DEPRESSION. ASSESS NEED FOR MEDICATION, MEDICATION CHANGES AND POTENTIAL NEED FOR REFERRAL TO PROVIDE COUNSELING AND ASSISTANCE WITH MANAGING DEPRESSION.] Future Scheduled Test SKILLED NU RSE TO FOCUS ON IDENTIFIED NEED FOR HIGH RISK MEDICATION INTERVENTION. [code = SKILLED NURSE TO FOCUS ON IDENTIFIED NEED FOR HIGH RISK MEDICATION INTERVENTION.] Future Scheduled Test SKILLED NU RSE FOR OBSERVATION / ASSESSMENT OF PATIENT'S IMPAIRED NUTRITION RELATED TO OBESITY. INSTRUCT PATIENT / CAREGIVER ON INTERVENTIONS DESIGNED TO IMPROVE NUTRITIONAL INTAKE AND PATIENT WELL BEING. [code = SKILLED NURSE FOR OBSERVATION / ASSESSMENT OF PATIENT'S IMPAIRED NUTRITION RELATED TO OBESITY. INSTRUCT PATIENT / CAREGIVER ON INTERVENTIONS DESIGNED TO IMPROVE NUTRITIONAL INTAKE AND PATIENT WELL BEING.] Future Scheduled Test SKILLED NU RSE TO OBSERVE AND ASSESS INTEGUMENTARY STATUS TO IDENTIFY CHANGES AND INTERVENE TO MINIMIZE COMPLICATIONS. CLINICIAN TO PROVIDE SKILLED TEACHING RELATED TO ALTERED SKIN INTEGRITY INCLUDING PATHOPHYSIOLOGY, NUTRITION, MEDICATION REGIMEN, AND MEASURES TO PROMOTE OPTIMAL SKIN INTEGRITY. [code = SKILLED NURSE TO OBSERVE AND ASSESS INTEGUMENTARY STATUS TO IDENTIFY CHANGES AND INTERVENE TO MINIMIZE COMPLICATIONS. CLINICIAN TO PROVIDE SKILLED TEACHING RELATED TO ALTERED SKIN INTEGRITY INCLUDING PATHOPHYSIOLOGY, NUTRITION, MEDICATION REGIMEN, AND MEASURES TO PROMOTE OPTIMAL SKIN INTEGRITY.] Future Scheduled Test CLINICIAN TO PERFORM/TEACH PRESSURE ULCER CARE TO L HEEL USING CLEAN/ASEPTIC TECHNIQUE. CLEANSE WITH NORMAL SALINE OR WOUND CLEANSER. APPLY MEDIHONEY TO WOUND BED, THEN COVER WITH CALCIUM ALGINATE SECURE WITH BORDERED FOAM DRESSING. APPLY TUBAGRIP TO BILATERAL LOWER EXTREMITIES DAILY AND OFF AT NIGHT CHANGE DRESSING TWICE WEEKLY, ONCE WEEKLY BY HOME HEALTH NURSING AND ONCE WEEKLY BY PERSONIC WOUND CARE PROVIDER. WOUND CARE TO BE COMPLETED BY CAREGIVER IN THE ABSENCE OF NURSING. [code = CLINICIAN TO PERFORM/TEACH PRESSURE ULCER CARE TO L HEEL USING CLEAN/ASEPTIC TECHNIQUE. CLEANSE WITH NORMAL SALINE OR WOUND CLEANSER. APPLY MEDIHONEY TO WOUND BED, THEN COVER WITH CALCIUM ALGINATE SECURE WITH BORDERED FOAM DRESSING. APPLY TUBAGRIP TO BILATERAL LOWER EXTREMITIES DAILY AND OFF AT NIGHT CHANGE DRESSING TWICE WEEKLY, ONCE WEEKLY BY HOME HEALTH NURSING AND ONCE WEEKLY BY PERSONIC WOUND CARE PROVIDER. WOUND CARE TO BE COMPLETED BY CAREGIVER IN THE ABSENCE OF NURSING.] Future Scheduled Test SKILLED NU RSE PRN VISIT ORDER: 3 PRN VISITS MAY BE PERFORMED DURING THIS CERTIFICATION PERIOD FOR THE FOLLOWING REASON(S): WOUND CARE, FALLS, MEDICATION ISSUES, EXACERBATION OF COMORBIDITIES. SKILLED NURSE TO EVALUATE AND DEVELOP PLAN OF CARE TO BE SIGNED BY THE PHYSICIAN. SKILLED NURSE TO ASSESS/EVALUATE ANY CONDITIONS THAT PRESENT THEMSELVES AND THAT WILL IMPACT THE PLAN OF CARE DURING THE COURSE OF THE EPISODE TO IDENTIFY CHANGES AND INTERVENE TO MINIMIZE COMPLICATIONS. TEACH AND MONITOR PATIENT/CAREGIVER ABILITY TO SAFELY ADMINISTER MEDICATIONS. PHONE TOUCHPOINTS CAN BE PERFORMED NEEDED TO SUPPLEMENT THE PLAN OF CARE. [code = SKILLED NURSE PRN VISIT ORDER: 3 PRN VISITS MAY BE PERFORMED DURING THIS CERTIFICATION PERIOD FOR THE FOLLOWING REASON(S): WOUND CARE, FALLS, MEDICATION ISSUES, EXACERBATION OF COMORBIDITIES. SKILLED NURSE TO EVALUATE AND DEVELOP PLAN OF CARE TO BE SIGNED BY THE PHYSICIAN. SKILLED NURSE TO ASSESS/EVALUATE ANY CONDITIONS THAT PRESENT THEMSELVES AND THAT WILL IMPACT THE PLAN OF CARE DURING THE COURSE OF THE EPISODE TO IDENTIFY CHANGES AND INTERVENE TO MINIMIZE COMPLICATIONS. TEACH AND MONITOR PATIENT/CAREGIVER ABILITY TO SAFELY ADMINISTER MEDICATIONS. PHONE TOUCHPOINTS CAN BE PERFORMED NEEDED TO SUPPLEMENT THE PLAN OF CARE.] Future Scheduled Test SKILLED NU RSE TO OBSERVE AND ASSESS CARDIOVASCULAR SYSTEM TO IDENTIFY CHANGES AND INTERVENE TO MINIMIZE COMPLICATIONS AND PROMOTE SELF CARE MANAGEMENT. SKILLED NURSE TO PROVIDE SKILLED TEACHING RELATED TO PATHOPHYSIOLOGY, DISEASE MANAGEMENT, SAFE MEDICATION ADMINISTRATION, WEIGHT/EDEMA MANAGEMENT, PERMITTED ACTIVITIES, S/SX OF EXACERBATION, AND S/SX TO NOTIFY AGENCY, PHYSICIAN OR 911 RELATED TO THE DIAGNOSIS OF CHF. [code = SKILLED NURSE TO OBSERVE AND ASSESS CARDIOVASCULAR SYSTEM TO IDENTIFY CHANGES AND INTERVENE TO MINIMIZE COMPLICATIONS AND PROMOTE SELF CARE MANAGEMENT. SKILLED NURSE TO PROVIDE SKILLED TEACHING RELATED TO PATHOPHYSIOLOGY, DISEASE MANAGEMENT, SAFE MEDICATION ADMINISTRATION, WEIGHT/EDEMA MANAGEMENT, PERMITTED ACTIVITIES, S/SX OF EXACERBATION, AND S/SX TO NOTIFY AGENCY, PHYSICIAN OR 911 RELATED TO THE DIAGNOSIS OF CHF.] Future Scheduled Test PATIENT/CA REGIVER WILL BE KNOWLEDGEABLE OF DISCHARGE PLANS AND WILL DEMONSTRATE/PROVIDE EDUCATION AND RESOURCES NEEDED TO MAINTAIN HEALTH. [code = PATIENT/CAREGIVER WILL BE KNOWLEDGEABLE OF DISCHARGE PLANS AND WILL DEMONSTRATE/PROVIDE EDUCATION AND RESOURCES NEEDED TO MAINTAIN HEALTH.] Future Scheduled Test AGENCY CRISS L DISCHARGE PATIENT TO DR. GLALEGOS PHYSICIAN/HEALTH CARE PROVIDER AND MAY ACCEPT ORDERS FROM THE FOLLOWING PHYSICIANS: [code = AGENCY WILL DISCHARGE PATIENT TO DR. GALLEGOS PHYSICIAN/HEALTH CARE PROVIDER AND MAY ACCEPT ORDERS FROM THE FOLLOWING PHYSICIANS:] Future Scheduled Test CLINICIAN TO OBSERVE AND ASSESS FOR SIGNS OF ANXIETY AND INSTRUCT PATIENT/CAREGIVERS IN HEALTHY BEHAVIORS AND MANAGEMENT STRATEGIES. [code = CLINICIAN TO OBSERVE AND ASSESS FOR SIGNS OF ANXIETY AND INSTRUCT PATIENT/CAREGIVERS IN HEALTHY BEHAVIORS AND MANAGEMENT STRATEGIES.] Future Scheduled Test CLINICIAN TO EDUCATE PATIENT / CAREGIVER IN FALL PREVENTION AND PROVIDE INTERVENTIONS TO REDUCE FALL RISK AND ENHANCE HOME SAFETY [code = CLINICIAN TO EDUCATE PATIENT / CAREGIVER IN FALL PREVENTION AND PROVIDE INTERVENTIONS TO REDUCE FALL RISK AND ENHANCE HOME SAFETY] Future Scheduled Test PSYCHOSOCI AL / COGNITIVE ASSESSMENT INDICATES NO NEED FOR SOCIAL, FINANCIAL, OR TRANSPORTATION SUPPORT OR FOR ADDITIONAL CARE PROVIDERS/DISCIPLINES OR REFERRALS TO OUTSIDE ENTITIES. [code = PSYCHOSOCIAL / COGNITIVE ASSESSMENT INDICATES NO NEED FOR SOCIAL, FINANCIAL, OR TRANSPORTATION SUPPORT OR FOR ADDITIONAL CARE PROVIDERS/DISCIPLINES OR REFERRALS TO OUTSIDE ENTITIES.] Goal 2024-09-21 Patient Goal - G ET STRONGER AND BE MORE INDEPENDENT Goal Patient Goal - G ET STRONGER AND BE MORE INDEPENDENT Goal 2024-11-20 Patient Goal - G ET STRONGER AND BE MORE INDEPENDENT Goal Provider Goal - PATIENT / CAREGIVER WILL VERBALIZE / DEMONSTRATE ADEQUATE KNOWLEDGE OF ENDOCRINE STATUS. GOAL TO BE MET BY 12/08/24 Goal Provider Goal - RESPIRATORY EXACERBATIONS WILL BE IDENTIFIED PROMPTLY AND INTERVENTIONS INITIATED TO MINIMIZE ASSOCIATED RISK. PATIENT/CAREGIVER WILL VERBALIZE/DEMONSTRATE AN ABILITY TO CARE FOR ALTERED RESPIRATORY STATUS. GOAL TO BE MET BY 12/03/24 Goal Provider Goal - GASTROINTESTINAL STATUS WILL BE EVALUATED AND EXACERBATIONS IDENTIFIED WITH INTERVENTIONS IMPLEMENTED TO MINIMIZE COMPLICATIONS. PATIENT / CAREGIVER WILL VERBALIZE/DEMONSTRATE ABILITY TO CARE FOR ALTERED GASTROINTESTINAL STATUS. GOAL TO BE MET BY 12/04/24 Goal Provider Goal - PATIENT/CAREGIVER WILL VERBALIZE MEASURES TO COPE WITH DEPRESSION AND STATE SIGNS AND SYMPTOMS TO REPORT TO PHYSICIAN BY 11/30/24 Goal Provider Goal - PATIENT/CAREGIVER DEMONSTRATES ABILITY TO ADHERE TO MEDICATION REGIMEN. GOAL TO BE MET BY 12/10/24 Goal Provider Goal - PATIENT / CAREGIVER WILL VERBALIZE/DEMONSTRATE APPROPRIATE METHODS TO CONTROL/LOSE WEIGHT. GOAL TO BE MET BY 12/09/24 Goal Provider Goal - CHANGES IN SKIN INTEGRITY STATUS WILL BE IDENTIFIED AND REPORTED TO THE PHYSICIAN FOR PROMPT INTERVENTION. PATIENT / CAREGIVER WILL VERBALIZE/DEMONSTRATE ADEQUATE KNOWLEDGE OF INTEGUMENTARY STATUS AND APPROPRIATE MEASURES TO PROMOTE SKIN INTEGRITY AND PREVENT INJURY. GOAL TO BE MET BY 12/05/24 Goal Provider Goal - PATIENT / CAREGIVER WILL VERBALIZE / DEMONSTRATE ABILITY TO PERFORM WOUND CARE. WOUND STATUS WILL IMPROVE EVIDENCED BY A DECREASE IN SIZE, DRAINAGE, ABSENCE OF INFECTION, AND DECREASED PAIN. GOAL TO BE MET BY 12/05/24 Goal Provider Goal - A PLAN OF CARE WILL BE ESTABLISHED THAT MEETS ALL PATIENT'S NURSING NEEDS AND COUNTERSIGNED BY PHYSICIAN. Goal Provider Goal - CARDIOVASCULAR EXACERBATIONS WILL BE IDENTIFIED PROMPTLY AND INTERVENTIONS INITIATED TO MINIMIZE ASSOCIATED RISK. PATIENT/CAREGIVER WILL VERBALIZE/DEMONSTRATE ABILITY TO CARE FOR ALTERED CARDIOVASCULAR STATUS. GOALS TO BE MET BY 12/02/24 Goal Provider Goal - PATIENT AND/OR CAREGIVER WILL BE IN AGREEMENT WITH DISCHARGE PLANS AND WILL VERBALIZE HAVING RESOURCES AND KNOWLEDGE TO MAINTAIN HEALTH. Goal Provider Goal - PATIENT WILL REMAIN SAFE AND NEEDS WILL BE MET BY COLLABORATING ON POC AND COMMUNICATING CHANGES IN POC AND CHANGES AFFECTING DISCHARGE PLAN WITH PATIENT, CAREGIVER, RECEIVING PHYSICIAN/HEALTH CARE PROVIDER, AND OTHER PHYSICIANS WRITING ORDERS ON THE POC THROUGHOUT CERTIFICATION PERIOD. Goal Provider Goal - PATIENT/CAREGIVER WILL VERBALIZE AND DEMONSTRATE HEALTHY BEHAVIORS AND STRATEGIES TO MANAGE ANXIETY. GOAL TO BE MET BY 12/07/24 Goal Provider Goal - PATIENT TO DEMONSTRATE REDUCED FALL RISK AND IMPROVE HOME SAFETY BY 12/01/24 Goal Provider Goal - PATIENT/CAREGIVER VERBALIZES AND DEMONSTRATES ABILITY FOR THE PATIENT TO FUNCTION WITHIN THEIR COMMUNITY AND TO PARTICIPATE IN THE DEVELOPMENT AND IMPLEMENTATION OF THEIR CARE PLAN THROUGHOUT THE CERTIFICATION PERIOD. Encounters Start Date/Time End Date/Time Encounter Type Admission Type [facility] Department Encounter ID Discharge Date Discharge Status Discharge Condition Discharge Reason Percent Goals Met 2024-11-25 00:00:00 2025-01-23 00:00:00 Outpatient RECERTIFIC ATION RANJEET PA [facility] [id number] 52.94
--- OUTSIDE RECORDS SUMMARY | 2025-01-22 20:00 | XMS_ITS | Clinical Summary ---
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 Active 07-28 00:00: 00 [...] 15 mg tablet 07-28 00:00: 00 Yes [id number] MEMORY 1 tablet DAILY 1 tablet DAILY (route: oral) Med Classific ation: Central Nervous System Agents acetaminoph en 325 mg tablet 07-28 00:00: 00 Yes [id number] PAIN 2 tablet EVERY 4 HOURS 2 tablet EVERY 4 HOURS (route: oral) Med Classific ation: Analgesic , Anti-infl ammatory or Antipyret ic bumetanide 1 mg tablet 07-28 00:00: 00 Yes [id number] FLUID 1 tablet 2 TIMES DAILY 1 tablet 2 TIMES DAILY (route: oral) Med Classific ation: Cardiovas cular Therapy Agents duloxetine 60 mg capsule,del ayed release 07-28 00:00: 00 Yes [id number] MOOD STABILIZER 2 capsule DAILY 2 capsule DAILY (route: oral) Med Classific ation: Central Nervous System Agents lisinopril 10 mg-hydrochl orothiazide 12.5 mg tablet 07-28 00:00: 00 Yes [id number] BLOOD PRESSURE 1 tablet DAILY 1 tablet DAILY (route: oral) Med Classific ation: Cardiovas cular Therapy Agents Pre-Protein 15 gram-60 kcal/30 mL oral liquid 07-28 00:00: 00 Yes [id number] SUPPLEMENT 30 mL DAILY 30 mL DAILY (route: oral) Med Classific ation: Electroly te Balance-N utritiona l Products ropinirole 3 mg tablet 07-28 00:00: 00 Yes [id number] TREMORS 1 tablet BEDTIME 1 tablet BEDTIME [...] AGENCY CRISS L DISCHARGE PATIENT TO DR. GALLEGOS PHYSICIAN/HEALTH CARE [...] End Date/Time Encounter Type Admission Type Attending [facility] Care Department Encounter ID Discharge Date Discharge Status Discharge Condition Discharge Reason Percent Goals Met 2024-11-25 00:00:00 2025-01-23 00:00:00 Outpatient RECERTIFIC ATION RANJEET PA [facility] [id number]
== END 2024-12-15 23:59 | disposition home or self-care (01) ==
LOC: LAB.DROPOF 12-16 12:39
PROVIDERS: PCP Nurse Practitioner Family; Visit Provider Nurse Practitioner Family
DX: D64.9 Anemia, unspecified (principal); I89.0 Lymphedema, not elsewhere classified; E11.9 Type 2 diabetes mellitus without complications
CPT/HCPCS: 80053; 80061; 82607; 82728; 83036; 83735; 84443; 85025

== ENCOUNTER 2025-02-01 17:10 | Outpatient (CLI) | payer MEDICARE, SELFPAY ==
--- OUTSIDE RECORDS SUMMARY | 2025-02-01 17:12 | XMS_ITS | Referral Summary ---
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
--- OUTSIDE RECORDS SUMMARY | 2025-02-01 17:12 | XMS_ITS | Clinical Summary ---
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
--- OUTSIDE RECORDS SUMMARY | 2025-02-01 17:12 | XMS_ITS | Clinical Summary ---
Author Organization [facility] Address [address] [place] [address] Phone Care Team Providers Care Jordan Worker Name Role Phone Unavailable Unavailable Conditions or Problems No information available. Medications No information available. Medications Administered No information available. Allergies, Adverse Reactions, Alerts No information available. Results No information available. Plan of Care No information available. Procedures No information available. Vital Signs No information available. Immunizations No information available. Advance Directives No information available.
[2025-02-01 18:11] LABS: Alanine Aminotransferase 18 U/L (12-78); Albumin Level 3.9 g/dl (3.5-5.0); Albumin/Globulin Ratio 1.1 (1.1-1.8); Alkaline Phosphatase 85 U/L (38-126); Anion Gap 12.2 mEq/L (5-15); Aspartate Amino Transferase 22 U/L (14-36); Bilirubin,Total 0.4 mg/dl (0.2-1.3); Blood Urea Nitrogen 16 mg/dl (7-17); Calcium 9.1 mg/dl (8.4-10.2); Carbon Dioxide 27 mmol/L (22.0-30.0); Chloride 99 mmol/L (98-107); Creatinine,Serum 0.60 mg/dl (0.52-1.04); Estimated Glomerular Filt Rate 100 ml/min (>60); GFR (African American) 121 ML/MIN (>60); Globulin 3.7 g/dL (1.3-3.2); Glucose 256 mg/dl (74-100); Magnesium 1.6 mg/dl (1.6-2.3); Potassium 4.2 mmoL/L (3.5-5.1); Sodium 134 mmol/L (136-145); Total Protein,Serum 7.6 g/dl (6.3-8.2)
== END 2025-02-01 23:59 | disposition home or self-care (01) ==
LOC: LAB.DROPOF 17:10
PROVIDERS: PCP Nurse Practitioner Family; Visit Provider Nurse Practitioner Family
DX: T14.8XXD Other injury of unspecified body region, subsequent encounter (principal); I10 Essential (primary) hypertension; E83.42 Hypomagnesemia
CPT/HCPCS: 80053; 83735

== ENCOUNTER 2025-03-07 18:39 | Emergency (ER) | payer MEDICARE, SELFPAY ==
--- OUTSIDE RECORDS SUMMARY | 2025-03-07 18:44 | XMS_ITS | Referral Summary ---
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
--- OUTSIDE RECORDS SUMMARY | 2025-03-07 18:44 | XMS_ITS | Clinical Summary ---
Author Organization [employer] 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
--- OUTSIDE RECORDS SUMMARY | 2025-03-07 18:44 | XMS_ITS | Clinical Summary ---
Author Organization [facility] Address [address] [place] [address] Phone Care Team Providers Care Customer Sales Service Manager Name Role Phone Unavailable Unavailable Conditions or Problems No information available. Medications No information available. Medications Administered No information available. Allergies, Adverse Reactions, Alerts No information available. Results No information available. Plan of Care No information available. Procedures No information available. Vital Signs No information available. Immunizations No information available. Advance Directives No information available.
[2025-03-07 18:45] VITALS: BP 207/127; PULSE 104; RESP 20; TEMP 36.6; O2SAT 98; BMI 37.8
--- NOTE | 2025-03-07 18:56 | XR_ITS ---
PROCEDURE INFORMATION: Exam: XR Left Ankle Exam date and time: 03/07/2025 7:14 PM Age: 69 years old Clinical indication: Other: Ttp, cellulitis, eval for erosive changes TECHNIQUE: Imaging protocol: Radiologic exam of the left ankle. Views: 3 or more views. COMPARISON: CR XR FOOT LT MIN 3V 06/18/2024 9:43 AM FINDINGS: Bones/joints: No acute fracture. Note is made of a prominent plantar calcaneal enthesophyte. No evidence for osseous erosion at the tip. Soft tissues: There is no evidence for soft tissue swelling. No evidence for soft tissue gas. IMPRESSION: 1. No evidence for acute fracture. 2. No evidence for soft tissue gas.
--- NOTE | 2025-03-07 18:56 | XR_ITS ---
PROCEDURE INFORMATION: Exam: XR Right Foot Exam date and time: 03/07/2025 7:14 PM Age: 69 years old Clinical indication: Other: Ttp, cellulitis, eval for erosive changes TECHNIQUE: Imaging protocol: Radiologic exam of the right foot. Views: 3 or more views. COMPARISON: CR XR FOOT RT MIN 3V 06/18/2024 9:43 AM FINDINGS: Bones/joints: No acute fracture. No bony erosive changes. Soft tissues: No evidence for soft tissue gas. IMPRESSION: 1. No evidence for acute fracture. 2. No bony erosive changes and no evidence for soft tissue gas.
--- NOTE | 2025-03-07 18:56 | XR_ITS ---
PROCEDURE INFORMATION: Exam: XR Left Foot Exam date and time: 03/07/2025 7:14 PM Age: 69 years old Clinical indication: Other: Ttp, cellulitis, eval for erosive changes TECHNIQUE: Imaging protocol: Radiologic exam of the left foot. Views: 3 or more views. COMPARISON: CR XR FOOT LT MIN 3V 06/18/2024 9:43 AM FINDINGS: Bones/joints: Hallux valgus with bunion formation. Hammertoe deformities. Note is made of a prominent plantar calcaneal enthesophyte. No evidence for osseous erosion at the tip. No acute fracture. No bony erosive changes. Soft tissues: There is no evidence for soft tissue swelling. IMPRESSION: Chronic and alignment changes as discussed. No acute imaging findings.
--- NOTE | 2025-03-07 18:56 | XR_ITS ---
PROCEDURE INFORMATION: Exam: XR Right Ankle Exam date and time: 03/07/2025 7:14 PM Age: 69 years old Clinical indication: Other: Ttp, cellulitis, eval for erosive changes TECHNIQUE: Imaging protocol: Radiologic exam of the right ankle. Views: 3 or more views. COMPARISON: CR XR FOOT RT MIN 3V 06/18/2024 9:43 AM FINDINGS: Bones/joints: Note is made of a prominent plantar calcaneal enthesophyte. No evidence for osseous erosion at the tip. No acute fracture. Soft tissues: Normal. IMPRESSION: 1. No evidence for acute fracture. 2. No bony erosions. No soft tissue gas.
[2025-03-07 19:00] VITALS: BP 121/78; PULSE 71; RESP 18; TEMP 37.1; O2SAT 98
--- NOTE | 2025-03-07 19:03 | ED_ITS ---
Discharge Plan Disposition Patient Disposition: Home, Self-Care Prescriptions Prescriptions: New doxycycline monohydrate 100 mg capsule 100 mg PO BID 10 Days Qty: 20 0RF No Action duloxetine 60 mg capsule,delayed release(DR/EC) 60 mg PO BID lisinopril-hydrochlorothiazide 20-12.5 mg tablet 2 tab PO DAILY Patient Comments: TAKE 2 TABLETS BY MOUTH ONCE DAILY IN THE MORNING FOR BLOOD PRESSURE aripiprazole 15 mg tablet 15 mg PO DAILY Qty: 90 1RF ropinirole 3 mg tablet 3 mg PO QHS Qty: 90 1RF bumetanide 1 mg tablet 1 mg PO ONCE PRN (Reason: edema) Qty: 90 1RF pantoprazole 40 mg tablet,delayed release (DR/EC) 40 mg PO BID 90 Days Qty: 180 1RF acetaminophen 325 mg Tablet 650 mg PO Q4HP PRN (Reason: Fever Or Mild Pain (1-3)) 30 Days Qty: 100 0RF Referrals Follow up/Referrals: Stacey Elizalde APRN [Primary Care Provider, Medical] - See instructions Activity Restrictions/Add. Instructions Additional Instructions/Restrictions: You have been seen and evaluated the emergency department. Please follow-up with your primary care provider in 1 to 2 weeks. Return to the ED should you develop fevers or worsening skin changes. Take doxycycline as prescribed and continue following with wound care. Clinical Impressions Clinical Impression: Cellulitis Qualifiers: Site of cellulitis: extremity Site of cellulitis of extremity: lower extremity Laterality: right Qualified Code(s): L03.115 - Cellulitis of right lower limb Instructions Patient Instructions: Cellulitis Print Language Print Language: Eritrean Discharge ED Provider: Kinga Metzger Adult HPI General Chief complaint: PAIN Stated complaint: Foot pain Time Seen by Provider: 03/07/25 18:45 Mode of Arrival: EMS Source of Information: Patient and EMS Description of Symptoms (Recalled from ER Triage Doc. by RN): pt presents to ED with c/o right foot that started with approx 3 weeks ago. pt reports that she does have a foot wound on the left foot that has been healing and is being wrapped by pts family. pt states that she sits in a wheelchair for most part of the day and her legs begin to weep. pt reports that she did not take her lisinopril today. pt reports pain and weeping on right lower leg. History of Present Illness HPI narrative: This is a 69-year-old female with history of diabetes and chronic skin irritation with lower extremity wounds who presents emergency department with concern for sepsis regarding her wounds. She states she has had nausea and vomiting with feeling unwell over the past few days. She is most concerned about her right dorsal foot. She states she has been attempting to wrap the wounds at home. She has been having increasing yellow crusted discharge on top of the foot. No recent trauma. No recent antibiotics within the past 3 months. Related Data Home Medications ?Medication ?Instructions ?Recorded ?Confirmed duloxetine 60 mg capsule,delayed 60 mg PO BID 12/15/24 02/01/25 release lisinopril 20 2 tab PO DAILY 12/15/2406/23 mg-hydrochlorothiazide 12.5 mg tablet Previous Rx's ?Medication ?Instructions ?Recorded acetaminophen 325 mg tablet 650 mg (2 x 325 mg) PO Q4H P PRN 06/20/24 Fever Or Mild Pain (1-3) 30 days #100 tabs aripiprazole 15 mg tablet 15 mg PO DAILY #90 tabs 06/23 bumetanide 1 mg tablet 1 mg PO ONCE PRN edema #90 t abs 02/01/25 pantoprazole 40 mg tablet,delayed 40 mg PO BID 90 days #180 tabs 02/01/25 release ropinirole 3 mg tablet 3 mg PO QHS Restless Leg(S) #90 02/01/25 tabs doxycycline monohydrate 100 mg 100 mg PO BID 10 days # 20 caps 03/07/25 capsule Allergies Allergy/AdvReac Type Severity Reaction Status Date / Time No Known Allergies Allergy Verified 02/01/25 14:37 [facility] Disclaimer: The information contained in this section may have been updated after the patient was seen, as this information can be updated by other users. Medical History Hypertension Surgical History History of tubal ligation 1986 History of tonsillectomy History of spinal surgery History of cholecystectomy Family History Other Family history of arthritis Family history of cancer Family history of diabetes mellitus Family history of heart disease Social History Smoking Status: Current every day smoker tobacco type: cigarettes packs per day: 2 and e-cigarettes smoking status stop date: 1985 pt quit smoking cigarettes. Pt started vaping in 2023 alcohol intake: current alcohol intake frequency: holidays/special occasions only substance use type: denies use current occupational status: retired and disabled Travel in the last 8 weeks?: None Have you lived/traveled outside US in past 30 days?: No Contact w/someone who lives/traveled outside US past 30 days?: No Exposure to someone with infectious disease in past 14 days?: No Do you have a fever (greater than 100.4 F or 38 C)?: No Have you tested positive for COVID-19?: No Exposed to someone with COVID-19 in past 14 days?: No Do you have a sore throat?: No Do you have a cough?: No Do you have any weakness?: No Do you have any diarrhea?: No Are you experiencing any unusual bleeding?: No Do you have any muscle aches/pain?: No Do you have any abdominal pain?: No Are you experiencing loss of taste or smell?: No Other Medical History Have you received the Flu Vaccine for this season: No Have you received the Pneumonia Vaccine: No ROS Obtained: Yes All systems reviewed & no additional complaints except as documented Physical Exam General General appearance: alert and in no apparent distress Head Head exam: atraumatic Eye Eye exam: Present normal appearance, PERRL and EOMI ENT ENT exam: Present mucous membranes moist Neck Neck exam: Present normal inspection and full ROM; Absent tenderness Chest Chest inspection: Present symmetric chest wall rise; Absent tenderness Respiratory Respiratory exam: Absent respiratory distress, wheezes or accessory muscle use Cardiovascular Cardiovascular exam: Present normal rhythm and tachycardia Abdominal Exam Abdominal exam: Present soft; Absent tenderness or guarding Extremities Exam Extremities exam: Present full ROM; Absent tenderness Neurological Exam Neurological exam: Present alert and oriented X3 Psychiatric Psychiatric exam: Present normal affect Skin Skin exam: Present warm, dry and other (Yellow crusted skin wounds over the dorsal aspect of the right foot with accompanying erythema. No obvious deep ulcers. No foot deformity. Chronic venous stasis changes to the bilateral lower extremities) Medical Decision Making Medical Records Screening: Per USPSTF and CDC recommendations, given the prevalence of disease in our region, it is our hospital?s policy to screen for HIV and viral Hepatitis for all patients aged 18 and over and those with ongoing risk factors. [place] Inquiry Pt receiving controlled substance: No Vital Signs: 03/07/25 18:45 03/07/25 19:00 03/07/25 20:55 Temperature 97.9 F 98.8 F 97.8 F Temperature Source Oral Pulse Rate 71 73 Pulse Rate [Left Radial] 104 H Respiratory Rate 20 18 18 Blood Pressure 121/78 123/78 Blood Pressure [Right Arm] 207/127 H Blood Pressure Mean [Right Arm] 153 02 Sat by Pulse Oximetry 98 98 Oxygen Delivery Method Room Air Room Air Room Air Lab Data Lab Results 03/07/25 18:49: WBC 8.4, RBC 5.12, Hgb 11.7 L, Hct 38.5, MCV 75.2 L, MCH 22.9 L, MCHC 30.4 L, RDW 18.5 H, Plt Count 381, MPV 8.7, Neut % (Auto) 81.4 H, Lymph % (Auto) 11.1, King % (Auto) 3.5, Eos % (Auto) 2.9, Baso % (Auto) 0.7, Neut # (Auto) 6.8, Lymph # (Auto) 0.9, King # (Auto) 0.3, Eos # (Auto) 0.2, Baso # (Auto) 0.1, VBG pH 7.49 H, VBG pCO2 15.8 L, VBG pO2 178.7 H, VBG HCO3 11.9 L, V BG Total CO2 12.3 L, VBG O2 Saturation 99.7 H, VBG Base Excess -11.4 L, VBG Lactic Acid 2.0, Sodium 134 L, Potassium 3.7, Chloride 105, Carbon Dioxide 15 L, Anion Gap 17.7 H, BUN 14, Creatinine 0.60, Estimated Creat Clear 86, Estimated GFR 100, Est GFR ( Amer) 121, Glucose 191 H, Calcium 9.4, Total Bilirubin 0.6, AST 46 H, ALT 25, Alkaline Phosphatase 86, NT-Pro-B Natriuret Pep 213 H, T otal Protein 9.1 H, Albumin 4.5, Globulin 4.6 H, Albumin/Globulin Ratio 1.0 L, HCV Ab ESMER w/Rflx PCR Qn Negative, HIV Ag/Ab Combo Qual Negative 03/07/25 18:49 03/07/25 18:49 Orders (Tests/Meds): ED MEDICATIONS Discontinued Medications Generic Name Dose Route Start Last Admin Trade Name Alexx PRN Reason Stop Dose Admin Sodium Chloride 500 mls @ 999 mls/hr 03/07/25 18:58 03/07/25 19:32 Sod Chlor 0.9% 1000ml Bag IV 03/07/25 19:28 999 mls/hr .Q31M ONE Administration Oxycodone HCl 5 mg 03/07/25 20:38 Oxycodone 5mg Immediate Release Tablet PO 03/07/25 20:39 ONCE ONE ORDERS Category Date Time Status Ankle XR - Left minimum 3 Views [XR ankle LT min 3V] Exams 03/07/25 18:56 Completed Stat Foot XR left minimum 3 views [XR foot LT min 3V] Stat Exams 03/07/25 18:56 Completed Foot XR right minimum 3 views [XR foot RT min 3V] Stat Exams 03/07/25 18:56 Completed XR ankle RT min 3V Stat Exams 03/07/25 18:56 Completed BNP [NT Pro Brain Natriuretic Pep.] Stat Lab 03/07/25 18:49 Completed CBC w/Auto Diff [Complete Blood Count Auto Diff] Stat Lab 03/07/25 18:49 Completed CMP [Comprehensive Metabolic Panel] Stat Lab 03/07/25 18:49 Completed HIV Combo Routine Lab 03/07/25 18:49 Completed Hepatitis C Ab Qual. W/ RFX Routine Lab 03/07/25 18:49 Completed VBG [Venous Blood Gas] Stat RT 03/07/25 18:49 Completed Medical Decision Narrative: In summary, this is a 69 y/o female presenting the emergency department for right lower extremity wounds. Differential diagnosis includes but is not limited to: Cellulitis, soft tissue infection, abscess, osteomyelitis, ulcer On my initial assessment, the patient is hemodynamically stable in no acute distress. Physical exam is notable for chronic venous stasis changes bilaterally to the lower extremities. She has crusted yellow wounds to the dorsal aspect of the right foot with surrounding cellulitis. No discrete ulcer. Initial workup will be focused on evaluating for signs of systemic infection. She is afebrile and hemodynamically stable here in the emergency department. CBC shows no leukocytosis and mild stable anemia. Platelet count with normal limits. VBG shows a respiratory alkalosis, likely secondary to painful IV insertion. Normal lactate. CMP shows no severe electro abnormalities. No MARINO. BNP mildly elevated. X-rays show no obvious osseous abnormality or erosion. Diagnosis is most consistent with cellulitis. I recommended treatment with doxycycline. Wounds were redressed. I encouraged patient to continue follow-up with wound care at home. She was told to return to the emergency department should her symptoms worsen or should she develop fevers. She feels comfortable with discharge home and has no further questions. Critical Care Critical Care Time Critical Care Time: No
[2025-03-07 19:06] LABS: Hematocrit 38.5 % (37.0-47.0); Hemoglobin 11.7 g/dL (12.2-16.2); Immature Granulocytes % 0.4 %; Mean Corpuscular HGB Conc 30.4 g/dL (31.8-35.4); Mean Corpuscular Hemoglobin 22.9 pg (27.0-31.2); Mean Corpuscular Volume 75.2 fl (81-99); Nucleated Red Blood Cells % 0 %; Platelet Count 381 K/mm3 (142-424); Red Blood Count 5.12 M/mm3 (4.20-5.40); Red Cell Distribution Width-SD 49.1 fL; White Blood Count 8.4 K/mm3 (4.8-10.8)
[2025-03-07 19:11] LABS: Lactate Venous 2.0 mmol/L (0.4-2.0); VBG HCO3 11.9 mmol/L (23-30); VBG PH 7.49 mmol/L (7.31-7.41); VBG PO2 178.7 mmol/L (28-40)
[2025-03-07 19:13] LABS: Alanine Aminotransferase 25 U/L (12-78); Albumin Level 4.5 g/dl (3.5-5.0); Albumin/Globulin Ratio 1.0 (1.1-1.8); Alkaline Phosphatase 86 U/L (38-126); Anion Gap 17.7 mEq/L (5-15); Aspartate Amino Transferase 46 U/L (14-36); Bilirubin,Total 0.6 mg/dl (0.2-1.3); Blood Urea Nitrogen 14 mg/dl (7-17); Calcium 9.4 mg/dl (8.4-10.2); Carbon Dioxide 15 mmol/L (22.0-30.0); Chloride 105 mmol/L (98-107); Creatinine Clearance Estimated 86 mL/min (50-200); Creatinine,Serum 0.60 mg/dl (0.52-1.04); Estimated Glomerular Filt Rate 100 ml/min (>60); GFR (African American) 121 ML/MIN (>60); Globulin 4.6 g/dL (1.3-3.2); Glucose 191 mg/dl (74-100); Potassium 3.7 mmoL/L (3.5-5.1); Sodium 134 mmol/L (136-145); Total Protein,Serum 9.1 g/dl (6.3-8.2)
[2025-03-07 19:14] LABS: VBG PCO2 15.8 mmol/L (35-51)
[2025-03-07 19:22] LABS: NT Pro Brain Natriuretic Pep. 213 pg/mL (0-125)
[2025-03-07] MEDS: 0.9 % SODIUM CHLORIDE 1000ML 500 ML 999 ML IV (19:32)
[2025-03-07 20:12] LABS: Hepatitis C Ab Qual. W/ RFX NEGATIVE (Negative)
[2025-03-07 20:55] VITALS: BP 123/78; PULSE 73; RESP 18; TEMP 36.6; O2SAT 98
--- NOTE | 2025-03-07 21:00 | PC.NURSE ---
BOYD Sanchez and BOYD Li cleaned both legs with Hibiclens and then wrapped lightly per MD instructions. Education given to pt regarding wound care and keeping them clean.
== END 2025-03-07 21:09 | disposition home or self-care (01) ==
PROVIDERS: Emergency Provider Student in an Organized Health Care Education/Training Program; PCP Nurse Practitioner Family
DX: L03.115 Cellulitis of right lower limb (principal); M79.671 Pain in right foot; F17.210 Nicotine dependence, cigarettes, uncomplicated
CPT/HCPCS: 73610; 73630; 80053; 82803; 83880; 85025; 86803; 87389; 99284; 99285; J7030